=== PATIENT | female | born 1955 | race Caucasian/White ===

== ENCOUNTER → 2016-03-14 | Outpatient (CLI) | payer OTHER ==
[~2016-03-14] MED LIST: /BENA20TA; /CELE20CA; /CELE20CA OR; /CELE20CA PO; /GLYB5TA; /PANT40TA; ACET65TA; ACTO30TA OR; ACTO30TA7 PO; ATEN100T; ATEN50TA2; BACT400T; BACT800T; BACT800T5 PO; BACTROBAN; BENA20TA2; BENA40TA2 PO; BENZAPRIL OR; BENZAPRIL PO; BISA5TA; BUPR15TA OR; CEFT2ADD; CELE100C; CINNAMON PO; CIPR500T19; CIPR500T89 PO; COLA100C2; FLAG500T; FLUO10CA8 PO; GASTROGRAFIN SOLUTION 30ML (Q9963) As Ordered ONE; GLUC1000; GLUC1000 OR; GLUC500T; HEPARIN FLUSH; HUMALIN R; HUMUINJ IJ; HYDR25TA6; HYDR25TA6 OR; HYDR25TAB PO; INSULADS SC; INSULANT; INSULANT SC; JANU50TA4 PO; JANU50TA8 PO; JANUVIA PO; LEVA500T; LIPOZENE PO; MACROBID; METF1000 PO; METF500T4; METR500T10 PO; MILKSUS; NEUR100C PO; OMEP40CA2 PO; PERC5TAB6 PO; PERC5TAB8; PERCOCET OR; ROSI2TA; SALINE FLUSH; SERT100T; SIMV10TA2; SIMV10TA2 OR; SITA50TAB PO; TRAM37.5 PO; TRAM50TA2 PO; TYLENOL #3; ULTR50TA PO; VIBR100C; VICO5TAB; VICODIN PO; XANA0.25; ZOCO10TA; ZOCO10TA PO; ZOLO100T; [UNRECOGNIZED DRUG - OTHER] PO; [UNRECOGNIZED DRUG - REMARK] PO
--- NOTE | 2016-03-15 09:19 | REP ---
Clinical: Right lower quadrant and pelvic pain. Comparison: 10/08/2015. Findings: Liver, spleen, pancreas, gallbladder, bilateral adrenal glands and kidneys are stable and normal for noncontrast evaluation. The enteric system is without obstruction or acute inflammatory process. The patient appears to be status post appendectomy with normal terminal ileum in the right lower quadrant. Pelvis demonstrates normal bladder and evidence for prior hysterectomy. No pelvic fluid or ascites. No significant adenopathy. No free air. Abdominal aorta is without aneurysm. Surrounding musculoskeletal structures are intact. Lung bases are clear. Impression: No acute intra-abdominal or pelvic pathology appreciated. Signed by Marcellus Garcia MD 03/15/2016 09:10 A
== END | disposition home or self-care (01) ==
LOC: M RAD 14:29
PROVIDERS: ATTEND Internal Medicine
DX: R10.31 Right lower quadrant pain (principal)
CPT/HCPCS: 74176; Q9963

== ENCOUNTER → 2016-05-31 | Outpatient (CLI) | payer OTHER ==
[~2016-05-31] VITALS: Ht 167.6 cm; Wt 99.8 kg
[~2016-05-31] MED LIST changes: -GASTROGRAFIN SOLUTION 30ML (Q9963) As Ordered ONE; +JANU100T14 PO; +LIDOCAINE 2% INJ 100 MG/5 ML SDV (FOR ANES.) As Ordered ONE; +NS 1,000 ML IV SCH; +PROPOFOL 200 MG/20 ML VIAL As Ordered ONE
--- NOTE | 2016-05-31 10:36 | ROOR ---
Patient Name: Jackelyn Rboerts Procedure Date: 05/31/2016 10:05 AM Date of : 1955 Age: 60 Room: [facility] Gender: Female Note Status: Finalized Procedure: Colonoscopy Indications: High risk colon cancer surveillance: Personal history of colonic polyps Providers: DO Chavo Wyatt MD: HERIBERTO LOUIS MD Requesting Provider: Medicines: Propofol per Anesthesia Complications: No immediate complications. Procedure: Pre-Anesthesia Assessment: - Prior to the procedure, a History and Physical was performed, and patient medications and allergies were reviewed. The patient is competent. The risks and benefits of the procedure and the sedation options and risks were discussed with the patient. All questions were answered and informed consent was obtained. Patient identification and proposed procedure were verified by the physician, the nurse, the anesthesiologist and the safety technician in the endoscopy suite. Mental Status Examination: alert and oriented. Airway Examination: normal oropharyngeal airway and neck mobility. Respiratory Examination: clear to auscultation. CV Examination: normal. Prophylactic Antibiotics: The patient does not require prophylactic antibiotics. Prior Anticoagulants: The patient has taken no previous anticoagulant or antiplatelet agents. ASA Grade Assessment: II - A patient with mild systemic disease. After reviewing the risks and benefits, the patient was deemed in satisfactory condition to undergo the procedure. The anesthesia plan was to use monitored anesthesia care (MAC). Immediately prior to administration of medications, the patient was re-assessed for adequacy to receive sedatives. The heart rate, respiratory rate, oxygen saturations, blood pressure, adequacy of pulmonary ventilation, and response to care were monitored throughout the procedure. The physical status of the patient was re-assessed after the procedure. The Colonoscope was introduced through the anus and advanced to the cecum, identified by appendiceal orifice and ileocecal valve. The colonoscopy was performed without difficulty. The patient tolerated the procedure well. Findings: The perianal exam findings include non-thrombosed internal hemorrhoids and internal hemorrhoids that prolapse with straining, but spontaneously regress to the resting position (Grade II). Five sessile polyps were found in the rectum and cecum. The polyps were less than 5 mm in size. These polyps were removed with a hot snare. Resection and retrieval were complete. Estimated blood loss was minimal. 3 polyps in cecum, 2 in rectum The exam was otherwise without abnormality on direct and retroflexion views. Impression: - Non-thrombosed internal hemorrhoids and internal hemorrhoids that prolapse with straining, but spontaneously regress to the resting position (Grade II) found on perianal exam. - Five less than 5 mm polyps in the rectum and in the cecum, removed with a hot snare. Resected and retrieved. - The examination was otherwise normal on direct and retroflexion views. Recommendation: - Patient has a contact number available for emergencies. The signs and symptoms of potential delayed complications were discussed with the patient. Return to normal activities tomorrow. Written discharge instructions were provided to the patient. - Repeat colonoscopy in 3 years for surveillance based on pathology results. - Return to my office PRN. Boris Vicente DO 05/31/2016 10:36:17 AM This report has been signed electronically. Number of Addenda: 0 Note Initiated On: 05/31/2016 10:05 AM Estimated Blood Loss: Estimated blood loss was minimal.
[2016-05-31 11:00] VITALS: BP 133/74
== END ==
LOC: M OPP 09:30
PROVIDERS: ATTEND Surgery
DX: Z12.11 Encounter for screening for malignant neoplasm of colon (principal); Z86.010 Personal history of colon polyps; Z80.0 Family history of malignant neoplasm of digestive organs; D12.0 Benign neoplasm of cecum; K62.1 Rectal polyp; K64.1 Second degree hemorrhoids; G89.29 Other chronic pain; R10.31 Right lower quadrant pain; I10 Essential (primary) hypertension; E11.9 Type 2 diabetes mellitus without complications; Z79.899 Other long term (current) drug therapy; Z88.0 Allergy status to penicillin; Z88.6 Allergy status to analgesic agent; Z88.8 Allergy status to other drugs, medicaments and biological substances; Z91.89 Other specified personal risk factors, not elsewhere classified

== ENCOUNTER 2016-06-12 17:23 | Emergency (ER) | payer OTHER ==
[~2016-06-12] VITALS: Ht 167.6 cm; Wt 113.4 kg
[~2016-06-12 17:23] MED LIST changes: -LIDOCAINE 2% INJ 100 MG/5 ML SDV (FOR ANES.) As Ordered ONE; -NS 1,000 ML IV SCH; -PROPOFOL 200 MG/20 ML VIAL As Ordered ONE
[2016-06-12] MEDS ORDERED: fentaNYL 100 MCG/2 ML INJECTION (J3010) IV PRN (19:30)
[2016-06-12 20:15] LABS: VENOUS BASE EXCESS 3.2 (-2.0-2.0); VENOUS O2 SATURATION 96.8 % (60.0-80.0); VENOUS PARTIAL PRESSURE CO2 37.5 mmHg (38.0-50.0); VENOUS PARTIAL PRESSURE O2 91.6 mmHg (30.0-50.0); VENOUS STANDARD HCO3 27.3 MEQ/L
[2016-06-12 20:30] LABS: BASO % 0.5 % (0.0-1.0); EOS # 0.1 K/mm3 (0.0-0.50); EOS % 1.3 % (0.0-3.0); LARGE UNSTAINED CELL # 0.1 K/mm3 (0.0-0.4); LARGE UNSTAINED CELL % 1.3 % (0.0-4.0); LYMPH # 1.8 K/mm3 (1.5-4.5); LYMPH % 21.7 % (24.0-44.0); MEAN CORPUSCULAR HEMOGLOBIN 28.1 pg (27.0-33.0); MEAN CORPUSCULAR HGB CONC 33.8 g/dl (32.0-36.5); MEAN CORPUSCULAR VOLUME 83.2 fl (80.0-96.0); MONO # 0.4 K/mm3 (0.0-0.8); MONO % 4.7 % (0.0-5.0); NEUTROPHILS # 5.9 K/mm3 (1.8-7.7); NEUTROPHILS % 70.5 % (36.0-66.0); PLATELET COUNT, AUTOMATED 188 k/mm3 (150-450); RED CELL DISTRIBUTION WIDTH 14.6 % (11.5-14.5); WHITE BLOOD COUNT 8.3 K/mm3 (4.0-10.0)
[2016-06-12 20:44] LABS: ANION GAP 10 MEQ/L (8-16); BLOOD UREA NITROGEN 10 MG/DL (7-18); CALCIUM LEVEL 8.9 MG/DL (8.8-10.2); CARBON DIOXIDE LEVEL 27 MEQ/L (21-32); CHLORIDE LEVEL 100 MEQ/L (98-107); CREATININE FOR GFR 0.78 MG/DL (0.55-1.02); GLOMERULAR FILTRATION RATE > 60.0 (>45); GLUCOSE, FASTING 134 MG/DL (80-110); POTASSIUM SERUM 3.7 MEQ/L (3.5-5.1); SODIUM LEVEL 137 MEQ/L (136-145)
[2016-06-12] MEDS ORDERED: PERCOCET 5MG/325MG TAB PO ONE (23:30)
[2016-06-13 00:05] VITALS: BP 144/67
--- NOTE | 2016-06-13 02:19 | REP ---
Clinical: Chest pain . Comparison: None . Findings: The mediastinum and cardiac silhouette are stable and within normal limits for portable technique. The lung wylie are clear without acute consolidation, effusion, or pneumothorax. Skeletal structures are intact. Impression: Normal portable chest x-ray Signed by Marcellus Garcia MD 06/13/2016 02:11 A
--- NOTE | 2016-06-13 05:02 | ECGEPIP ---
Stationary ECG Study 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
--- NOTE | 2016-06-13 05:11 | ECGEPIP ---
Stationary ECG Study [facility] - ED Test Date: 2016-06-12 Pat Name: YUMI DOS SANTOS Department: Room: - Gender: F Shot Dropper: RAKESH : 1955 Requested By: BROOKLYN Caceres Order Number: [id number] Reading MD: Agustin Laguna Measurements Intervals [place] Rate: 81 P: 40 DC: 158 QRS: 1 QRSD: 89 T: 102 QT: 382 QTc: 445 Interpretive Statements SINUS RHYTHM NSTTW ABNORMALITIES SIMILAR TO PRIOR ON SAME DATE Electronically Signed On 06-13-2016 5:11:04 EDT by Agustin Laguna
== END 2016-06-13 00:10 | disposition home or self-care (01) ==
LOC: EDBD 17:23 → M ED 18:44
DX: R07.9 Chest pain, unspecified (principal); I50.9 Heart failure, unspecified; Z88.5 Allergy status to narcotic agent; Z88.6 Allergy status to analgesic agent; Z88.0 Allergy status to penicillin; Z79.4 Long term (current) use of insulin; Z79.899 Other long term (current) drug therapy
CPT/HCPCS: 36415; 36600; 71010; 80048; 82550; 82553; 82803; 83880; 85025; 93005; 93041; 96374; 99284; J3010

== ENCOUNTER → 2016-12-29 | Outpatient (CLI) | payer OTHER ==
[~2016-12-29] MED LIST changes: +ACTO30TA15 PO; -ACTO30TA7 PO; -BENA40TA2 PO; +BENA40TA7 PO; +CIPR-249 PO; -CIPR500T89 PO; +METR1TAB66 PO; -METR500T10 PO; +PERC5TAB12 PO; -PERC5TAB6 PO
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
== END | disposition home or self-care (01) ==
LOC: M PAIN 15:45
PROVIDERS: ATTEND Anesthesiology
DX: G89.29 Other chronic pain (principal); R10.30 Lower abdominal pain, unspecified; F33.9 Major depressive disorder, recurrent, unspecified; D86.9 Sarcoidosis, unspecified; E11.9 Type 2 diabetes mellitus without complications; I10 Essential (primary) hypertension; I25.9 Chronic ischemic heart disease, unspecified; M19.90 Unspecified osteoarthritis, unspecified site; E66.9 Obesity, unspecified; Z79.899 Other long term (current) drug therapy; Z79.4 Long term (current) use of insulin; Z88.0 Allergy status to penicillin; Z88.1 Allergy status to other antibiotic agents; Z88.2 Allergy status to sulfonamides; Z88.5 Allergy status to narcotic agent; Z88.8 Allergy status to other drugs, medicaments and biological substances

== ENCOUNTER → 2017-03-07 | Outpatient (CLI) | payer OTHER | LOC: M PAIN 15:00 | DX: G89.29 Other chronic pain (principal); R10.30 Lower abdominal pain, unspecified; E11.9 Type 2 diabetes mellitus without complications; I11.9 Hypertensive heart disease without heart failure; E66.9 Obesity, unspecified; Z68.35 Body mass index [BMI] 35.0-35.9, adult; F32.9 Major depressive disorder, single episode, unspecified; D86.9 Sarcoidosis, unspecified; M19.90 Unspecified osteoarthritis, unspecified site; Z88.0 Allergy status to penicillin; Z88.1 Allergy status to other antibiotic agents; Z88.6 Allergy status to analgesic agent; Z88.5 Allergy status to narcotic agent; Z88.8 Allergy status to other drugs, medicaments and biological substances; Z79.4 Long term (current) use of insulin; Z79.899 Other long term (current) drug therapy | CPT/HCPCS: G0463 ==

== ENCOUNTER → 2017-05-18 | Outpatient (CLI) | payer OTHER | LOC: M PAIN 11:30 | DX: R10.30 Lower abdominal pain, unspecified (principal); G89.29 Other chronic pain; E66.01 Morbid (severe) obesity due to excess calories; Z68.35 Body mass index [BMI] 35.0-35.9, adult; F32.9 Major depressive disorder, single episode, unspecified; E11.9 Type 2 diabetes mellitus without complications; I10 Essential (primary) hypertension; Z79.4 Long term (current) use of insulin; Z79.899 Other long term (current) drug therapy; Z88.0 Allergy status to penicillin; Z88.1 Allergy status to other antibiotic agents; Z88.5 Allergy status to narcotic agent; Z88.6 Allergy status to analgesic agent; Z88.8 Allergy status to other drugs, medicaments and biological substances; Z91.040 Latex allergy status | CPT/HCPCS: G0463 ==

== ENCOUNTER → 2017-09-21 | Outpatient (CLI) | payer OTHER | LOC: M PAIN 10:00 | DX: R10.30 Lower abdominal pain, unspecified (principal); G89.29 Other chronic pain; F32.9 Major depressive disorder, single episode, unspecified; E11.9 Type 2 diabetes mellitus without complications; I10 Essential (primary) hypertension; M19.90 Unspecified osteoarthritis, unspecified site; E66.01 Morbid (severe) obesity due to excess calories; Z79.4 Long term (current) use of insulin; Z79.899 Other long term (current) drug therapy; Z88.0 Allergy status to penicillin; Z88.1 Allergy status to other antibiotic agents; Z88.5 Allergy status to narcotic agent; Z88.6 Allergy status to analgesic agent; Z88.8 Allergy status to other drugs, medicaments and biological substances; Z91.040 Latex allergy status; Z68.35 Body mass index [BMI] 35.0-35.9, adult; Z86.79 Personal history of other diseases of the circulatory system | CPT/HCPCS: G0463 ==

== ENCOUNTER → 2017-10-12 | Outpatient (CLI) | payer OTHER | LOC: M PAIN 12:45 | DX: R10.30 Lower abdominal pain, unspecified (principal); F32.9 Major depressive disorder, single episode, unspecified; E11.9 Type 2 diabetes mellitus without complications; I10 Essential (primary) hypertension; Z79.4 Long term (current) use of insulin; Z79.891 Long term (current) use of opiate analgesic; Z79.899 Other long term (current) drug therapy; Z88.8 Allergy status to other drugs, medicaments and biological substances | CPT/HCPCS: G0463 ==

== ENCOUNTER → 2017-11-20 | Outpatient (CLI) | payer OTHER | LOC: M PAIN 15:15 | DX: Z53.29 Procedure and treatment not carried out because of patient's decision for other reasons (principal) ==

== ENCOUNTER → 2017-11-21 | Outpatient (CLI) | payer OTHER | LOC: M PAIN 15:15 | DX: R10.30 Lower abdominal pain, unspecified (principal); M79.2 Neuralgia and neuritis, unspecified; F32.9 Major depressive disorder, single episode, unspecified; E11.9 Type 2 diabetes mellitus without complications; I10 Essential (primary) hypertension; Z79.891 Long term (current) use of opiate analgesic; Z79.4 Long term (current) use of insulin; Z79.899 Other long term (current) drug therapy; Z88.0 Allergy status to penicillin; Z88.5 Allergy status to narcotic agent; Z88.8 Allergy status to other drugs, medicaments and biological substances | CPT/HCPCS: G0463 ==

== ENCOUNTER 2017-12-03 07:09 | Day surgery (SDC) | payer OTHER ==
[2017-12-03] MEDS: BUPIVACAINE HCL 0.25% 30 ML VIAL As Ordered (07:28)
[2017-12-03] MEDS: ISOVUE-300 61% 50ML VIAL (Q9967) As Ordered (07:28)
[2017-12-03 08:09] LABS: BEDSIDE GLUCOSE 51 MG/DL (80-115)
[2017-12-03 08:12] LABS: BEDSIDE GLUCOSE 196 MG/DL (80-115)
[2017-12-03] MEDS: MIDAZOLAM INJ 2 MG/2 ML VIAL (J2250) IV (08:30)
[2017-12-03] MEDS: LR 1,000 ML IV ×2 (08:30→11:34)
[2017-12-03] MEDS ORDERED: PROPOFOL 200 MG/20 ML VIAL As Ordered (09:22)
[2017-12-03] MEDS ORDERED: MIDAZOLAM INJ 2 MG/2 ML VIAL (J2250) As Ordered (09:22)
[2017-12-03] MEDS: CLINDAMYCIN 600 MG in APPROPRIATE DILUENT 1 EA IV ×3 (09:30→23:44)
[2017-12-03] MEDS ORDERED: fentaNYL 100 MCG/2 ML INJECTION (J3010) As Ordered (09:46)
[2017-12-03] MEDS: LIDOCAINE W/EPINEPHRINE 1% 20ML VIAL As Ordered (09:55)
[2017-12-03] MEDS ORDERED: fentaNYL 100 MCG/2 ML INJECTION (J3010) IV (12:00)
[2017-12-03] MEDS: HumaLOG INSULIN (NovoLOG) PER UNIT SC ×3 (12:00→20:48)
[2017-12-03] MEDS ORDERED: METOCLOPRAMIDE INJ 10MG/2ML VIAL (J2765) IV (12:00)
[2017-12-03] MEDS: ONDANSETRON 4MG/2ML VIAL (J2405) IV (12:04)
[2017-12-03] MEDS: PERCOCET 5MG/325MG TAB PO (12:06)
[2017-12-03] MEDS ORDERED: GLUCAGON FOR INJ 1 MG VIAL (J1610) SC (13:00)
[2017-12-03] MEDS ORDERED: DEXTROSE 50% 50 ML SYRINGE IV (13:00)
[2017-12-03] MEDS ORDERED: GLUCOSE 4 GM CHEW TABLET PO (13:00)
[2017-12-03 13:18] LABS: HEMATOCRIT 39.6 % (36.0-47.0); HEMOGLOBIN 12.9 g/dl (12.0-15.5); MEAN CORPUSCULAR HEMOGLOBIN 27.7 pg (27.0-33.0); MEAN CORPUSCULAR HGB CONC 32.6 g/dl (32.0-36.5); MEAN CORPUSCULAR VOLUME 85.2 fl (80.0-96.0); PLATELET COUNT, AUTOMATED 187 10^3/uL (150-450); RED BLOOD COUNT 4.65 10^6/uL (4.00-5.40); RED CELL DISTRIBUTION WIDTH 14.6 % (11.5-14.5); WHITE BLOOD COUNT 9.3 10^3/uL (4.0-10.0)
[2017-12-03 13:51] LABS: ANION GAP 9 MEQ/L (8-16); BLOOD UREA NITROGEN 12 MG/DL (7-18); CALCIUM LEVEL 8.7 MG/DL (8.8-10.2); CARBON DIOXIDE LEVEL 26 MEQ/L (21-32); CHLORIDE LEVEL 105 MEQ/L (98-107); CREATININE FOR GFR 0.69 MG/DL (0.55-1.30); GLOMERULAR FILTRATION RATE > 60.0 (>45); GLUCOSE, FASTING 143 MG/DL (70-100); MAGNESIUM LEVEL 1.4 MG/DL (1.8-2.4); POTASSIUM SERUM 4.3 MEQ/L (3.5-5.1); SODIUM LEVEL 140 MEQ/L (136-145)
[2017-12-03] MEDS: FLUoxetine 10 MG CAP PO (13:59)
[2017-12-03] MEDS: oxyCODONE 5MG TAB PO ×2 (14:33→20:47)
[2017-12-03 16:49] LABS: BEDSIDE GLUCOSE 154 MG/DL (80-115)
[2017-12-03 20:14] LABS: BEDSIDE GLUCOSE 116 MG/DL (80-115)
[2017-12-03] MEDS: SIMVASTATIN 10 MG TAB PO (20:46)
[2017-12-03] MEDS: LEVEMIR (INSULIN DETEMIR) 1 UNITS/0.01ML SC (20:48)
[2017-12-04] MEDS: oxyCODONE 5MG TAB PO ×2 (04:37→10:43)
[2017-12-04] MEDS: CLINDAMYCIN 600 MG in APPROPRIATE DILUENT 1 EA IV (05:56)
[2017-12-04 06:19] LABS: HEMATOCRIT 37.3 % (36.0-47.0); HEMOGLOBIN 11.9 g/dl (12.0-15.5); MEAN CORPUSCULAR HEMOGLOBIN 27.4 pg (27.0-33.0); MEAN CORPUSCULAR HGB CONC 31.9 g/dl (32.0-36.5); MEAN CORPUSCULAR VOLUME 85.7 fl (80.0-96.0); PLATELET COUNT, AUTOMATED 168 10^3/uL (150-450); RED BLOOD COUNT 4.35 10^6/uL (4.00-5.40); RED CELL DISTRIBUTION WIDTH 14.6 % (11.5-14.5); WHITE BLOOD COUNT 7.9 10^3/uL (4.0-10.0)
[2017-12-04 06:44] LABS: ANION GAP 5 MEQ/L (8-16); BLOOD UREA NITROGEN 11 MG/DL (7-18); CALCIUM LEVEL 7.7 MG/DL (8.8-10.2); CARBON DIOXIDE LEVEL 29 MEQ/L (21-32); CHLORIDE LEVEL 104 MEQ/L (98-107); CREATININE FOR GFR 0.62 MG/DL (0.55-1.30); GLOMERULAR FILTRATION RATE > 60.0 (>45); GLUCOSE, FASTING 144 MG/DL (70-100); MAGNESIUM LEVEL 1.3 MG/DL (1.8-2.4); POTASSIUM SERUM 3.6 MEQ/L (3.5-5.1); SODIUM LEVEL 138 MEQ/L (136-145)
[2017-12-04] MEDS: FLUoxetine 10 MG CAP PO (07:50)
[2017-12-04] MEDS: MAG SULF 1GM/100ML (MAG RUN) 1 GM in APPROPRIATE DILUENT 1 EA IV ×2 (07:51→08:05)
[2017-12-04] MEDS: HumaLOG INSULIN (NovoLOG) PER UNIT SC (07:51)
[2017-12-04] MEDS: LEVEMIR (INSULIN DETEMIR) 1 UNITS/0.01ML SC (07:51)
== END 2017-12-04 11:13 | disposition home or self-care (01) ==
LOC: M SDC 07:09 → M MSPAV 12:29
DX: R10.9 Unspecified abdominal pain (principal); G58.8 Other specified mononeuropathies; G89.29 Other chronic pain; I10 Essential (primary) hypertension; E10.9 Type 1 diabetes mellitus without complications; F32.9 Major depressive disorder, single episode, unspecified; R94.31 Abnormal electrocardiogram [ECG] [EKG]; E78.00 Pure hypercholesterolemia, unspecified; M12.9 Arthropathy, unspecified; M54.9 Dorsalgia, unspecified; R51 Headache; G35 Multiple sclerosis; R06.83 Snoring; Z88.0 Allergy status to penicillin; Z88.1 Allergy status to other antibiotic agents; Z88.5 Allergy status to narcotic agent; Z88.6 Allergy status to analgesic agent; Z88.8 Allergy status to other drugs, medicaments and biological substances; Z79.899 Other long term (current) drug therapy; Z90.710 Acquired absence of both cervix and uterus
CPT/HCPCS: 63650

== ENCOUNTER → 2017-12-07 | Outpatient (CLI) | payer OTHER | LOC: M PAIN 10:00 | DX: R10.84 Generalized abdominal pain (principal); G89.29 Other chronic pain; M79.2 Neuralgia and neuritis, unspecified; F32.9 Major depressive disorder, single episode, unspecified; E11.9 Type 2 diabetes mellitus without complications; I10 Essential (primary) hypertension; M19.90 Unspecified osteoarthritis, unspecified site; Z79.4 Long term (current) use of insulin; Z79.899 Other long term (current) drug therapy; Z88.0 Allergy status to penicillin; Z88.1 Allergy status to other antibiotic agents; Z88.5 Allergy status to narcotic agent; Z88.6 Allergy status to analgesic agent; Z88.8 Allergy status to other drugs, medicaments and biological substances; Z91.040 Latex allergy status; Z86.79 Personal history of other diseases of the circulatory system | CPT/HCPCS: G0463 ==

== ENCOUNTER → 2018-01-03 | Outpatient (CLI) | payer OTHER | LOC: M PAIN 14:45 | DX: M79.2 Neuralgia and neuritis, unspecified (principal); R10.30 Lower abdominal pain, unspecified; G89.29 Other chronic pain; F32.9 Major depressive disorder, single episode, unspecified; E11.9 Type 2 diabetes mellitus without complications; I10 Essential (primary) hypertension; M19.90 Unspecified osteoarthritis, unspecified site; E66.01 Morbid (severe) obesity due to excess calories; Z68.35 Body mass index [BMI] 35.0-35.9, adult; Z79.4 Long term (current) use of insulin; Z79.899 Other long term (current) drug therapy; Z88.0 Allergy status to penicillin; Z88.1 Allergy status to other antibiotic agents; Z88.5 Allergy status to narcotic agent; Z88.6 Allergy status to analgesic agent; Z88.8 Allergy status to other drugs, medicaments and biological substances; Z91.040 Latex allergy status; Z86.79 Personal history of other diseases of the circulatory system | CPT/HCPCS: G0463 ==

== ENCOUNTER 2018-04-04 11:31 | Emergency (ER) | payer OTHER ==
[~2018-04-04] VITALS: Ht 167.6 cm; Wt 106.8 kg
[~2018-04-04 11:31] MED LIST changes: +METR-201 PO; -METR1TAB66 PO
[2018-04-04] MEDS ORDERED: JANU50TA25 PO (12:36)
[2018-04-04] MEDS ORDERED: OXYC1TAB23 PO (12:36)
[2018-04-04] MEDS ORDERED: CINN500T PO (12:36)
--- NOTE | 2018-04-04 12:36 | REP ---
CT Head without contrast HISTORY: Trauma COMPARISON: 03/11/2009 Areas of decreased attenuation are present in the periventricular white matter. This represents small-vessel ischemic disease. There is no intraparenchymal hemorrhage, acute infarct, mass or midline shift. The ventricular system and cortical sulci are dilated consistent with mild volume loss. There is no extra cerebral collection. There is no fracture. Mucosal thickening is present in the maxillary sinuses. A subgaleal hematoma is present overlying the parietal bones at the vertex. IMPRESSION: 1. Small vessel ischemic disease. 2. Mild volume loss. Electronically Signed by Fortunato Joseph MD 04/04/2018 12:28 P
--- NOTE | 2018-04-04 12:43 | REP ---
CT cervical spine without contrast HISTORY: Trauma COMPARISON: None There is no acute fracture or subluxation. Disc bulges are present at the C2-3 and C3-4 levels. A small central disc protrusion is present at the C4-5 level. A disc bulge with associated osteophyte formation is present at the C5-6 level. The patient is status post C6-7 anterior spinal fusion. A fixation plate and bone graft material are present. Small posterior osteophytes are present. A small calcification is present posterior to the C7-T1 intervertebral disc. There is minimal narrowing of the spinal canal. Uncinate process hypertrophy is present at the C5-6 and C6-7 levels. There is minimal narrowing of the neural foramina. The C5-6 intervertebral disc is decreased in height consistent with disc degeneration. There is no subluxation. IMPRESSION: 1. There is no acute fracture or subluxation. 2. The patient is status post C6-7 anterior spinal fusion. There is anatomic alignment. 3. There is cervical spondylosis at the C2-3 through C7-T1 levels. Electronically Signed by Fortunato Joseph MD 04/04/2018 12:35 P
[2018-04-04] MEDS ORDERED: NS 1,000 ML IV SCH (12:52)
[2018-04-04] MEDS ORDERED: ACETAMINOPHEN TAB 650MG DOSE (2X325MG) PO ONE (13:00)
[2018-04-04 13:35] LABS: BASO % 0.3 % (0.0-1.0); EOS # 0.1 10^3/uL (0.0-0.50); EOS % 0.5 % (0.0-3.0); HEMATOCRIT 42.4 % (36.0-47.0); HEMOGLOBIN 14.2 g/dl (12.0-15.5); LYMPH # 1.5 10^3/uL (1.5-4.5); LYMPH % 13.2 % (24.0-44.0); MEAN CORPUSCULAR HEMOGLOBIN 27.6 pg (27.0-33.0); MEAN CORPUSCULAR HGB CONC 33.5 g/dl (32.0-36.5); MEAN CORPUSCULAR VOLUME 82.5 fl (80.0-96.0); MONO # 0.6 10^3/uL (0.0-0.8); MONO % 5.1 % (0.0-5.0); NEUTROPHILS # 9.2 10^3/uL (1.8-7.7); NEUTROPHILS % 80.3 % (36.0-66.0); PLATELET COUNT, AUTOMATED 184 10^3/uL (150-450); RED BLOOD COUNT 5.14 10^6/uL (4.00-5.40); WHITE BLOOD COUNT 11.4 10^3/uL (4.0-10.0)
[2018-04-04 14:14] LABS: ALT/SGPT 24 U/L (12-78); BILIRUBIN,DIRECT < 0.1 MG/DL (0.0-0.2); BILIRUBIN,TOTAL 0.7 MG/DL (0.2-1.0); BLOOD UREA NITROGEN 7 MG/DL (7-18); CALCIUM LEVEL 8.6 MG/DL (8.8-10.2); CARBON DIOXIDE LEVEL 24 MEQ/L (21-32); CHLORIDE LEVEL 102 MEQ/L (98-107); CREATININE FOR GFR 0.71 MG/DL (0.55-1.30); GLOMERULAR FILTRATION RATE > 60.0 (>45); GLUCOSE, FASTING 305 MG/DL (70-100); LIPASE 183 U/L (73-393); POTASSIUM SERUM 4.9 MEQ/L (3.5-5.1); SODIUM LEVEL 136 MEQ/L (136-145); TOTAL PROTEIN 7.9 GM/DL (6.4-8.2)
[2018-04-04] MEDS ORDERED: ISOVUE-370 76% 100ML VIAL (Q9967) As Ordered ONE (14:16)
--- NOTE | 2018-04-04 14:41 | REP ---
Pelvis/right hip: Three views. History: Trauma. Findings: The bony pelvic ring is intact. There is diffuse osteopenia. Urine filled bladder is seen occupying most of the true pelvis. There is a benign dystrophic area of soft tissue ossification in the medial thigh on the left noted incidentally. There is greater trochanteric tendon insertion site spurring. Impression: No hip or pelvic fracture seen. Electronically Signed by Alverto Saleem MD 04/04/2018 10:25 P
--- NOTE | 2018-04-04 15:16 | REP ---
CT abdomen and pelvis with IV but without oral contrast: History: Trauma. Generalized pain. Comparison CT study August 03, 2017. CT contrast dose: 100 ml of intravenous Isovue 370. CT findings: Digital preliminary fountain waitress/waiter radiograph shows an unremarkable gas pattern. There is minimal linear fibrosis in the left lower lobe. Lung bases are otherwise clear on axial CT images. There is minimal diffuse fatty infiltration of the liver. No focal liver lesion is seen. Spleen is unremarkable. There is no adrenal lesion. The kidneys enhance symmetrically and appear morphologically intact. No abnormalities noted in the gallbladder or pancreas. No retroperitoneal mass or adenopathy is seen. There are anastomotic sutures in the gastrointestinal tract in the right mid abdomen. This is unchanged. This appears to be in the small intestine. A ventral hernia repair is seen in the lower anterior abdominal wall. The appearance suggests multiple loops of small intestine adherent to the anterior abdominal wall in the area of the hernia repair. No abdominal wall defect is seen. The anterior abdominal wall is unchanged. Urinary bladder is unremarkable. There are scattered normal-sized small bowel mesenteric lymph nodes. No adenopathy is seen. No bony destructive lesion is appreciated. Impression: Status post ventral hernia repair with the appearance suggesting some adherent small bowel loops unchanged. Small bowel anastomoses seen unchanged. No acute abdominal or pelvic abnormality. Electronically Signed by Alverto Saleem MD 04/04/2018 10:27 P
[2018-04-04 15:19] VITALS: BP 162/84
== END 2018-04-04 15:21 | disposition home or self-care (01) ==
LOC: M ED 11:31 → EDBD 11:31 → M ED 15:21
DX: S09.90XA Unspecified injury of head, initial encounter (principal); W00.9XXA Unspecified fall due to ice and snow, initial encounter; Y92.410 Unspecified street and highway as the place of occurrence of the external cause; Y93.9 Activity, unspecified; Y99.9 Unspecified external cause status; E11.9 Type 2 diabetes mellitus without complications; I10 Essential (primary) hypertension; F32.9 Major depressive disorder, single episode, unspecified; E66.9 Obesity, unspecified; G89.29 Other chronic pain; M43.22 Fusion of spine, cervical region; M47.812 Spondylosis without myelopathy or radiculopathy, cervical region; M47.813 Spondylosis without myelopathy or radiculopathy, cervicothoracic region; Z79.4 Long term (current) use of insulin; Z79.899 Other long term (current) drug therapy; Z88.8 Allergy status to other drugs, medicaments and biological substances; Z88.5 Allergy status to narcotic agent; Z88.0 Allergy status to penicillin; Z91.89 Other specified personal risk factors, not elsewhere classified
CPT/HCPCS: 70450; 72125; 73502; 74177; 80048; 80076; 83690; 85025; 99284; Q9967

== ENCOUNTER → 2018-05-14 | Outpatient (CLI) | payer OTHER ==
[~2018-05-14] MED LIST changes: +CINN500T PO; +JANU50TA25 PO; +OXYC1TAB23 PO
[2018-05-14 14:54] LABS: BLOOD UREA NITROGEN 12 MG/DL (7-18); GLOMERULAR FILTRATION RATE > 60.0 (>45)
== END ==
LOC: M LAB 13:41
PROVIDERS: ATTEND Internal Medicine
DX: Z13.9 Encounter for screening, unspecified (principal)

== ENCOUNTER → 2018-05-16 | Outpatient (CLI) | payer OTHER ==
[~2018-05-16] MED LIST changes: +PROHANCE 279.3MG/ML 15ML VIAL (A9576) As Ordered ONE; +PROHANCE 279.3MG/ML 5ML VIAL (A9576) As Ordered ONE
--- NOTE | 2018-05-16 16:59 | REP ---
MRA BRAIN WITHOUT CONTRAST: HISTORY: Headache. COMPARISON: 03/11/2009. 3D [id number] MR angiography was performed at the level of the [place]. There is no aneurysm, arteriovenous malformation or atherosclerotic lesion. Major intracranial vessels are patent. The left vertebral artery is dominant. The right vertebral artery terminates in the right posterior inferior cerebellar artery. IMPRESSION:Normal MRA brain. Electronically Signed by Fortunato Joseph MD 05/16/2018 05:10 P
--- NOTE | 2018-05-16 17:15 | REP ---
MR BRAIN WITH CONTRAST: HISTORY: Ventriculomegaly. CONTRAST: ProHance 20 mL COMPARISON: 04/22/2018 There are no enhancing lesions. There is no abnormal enhancement. IMPRESSION: There are no enhancing lesions. Electronically Signed by Fortunato Joseph MD 05/16/2018 05:18 P
== END ==
LOC: M RAD 15:33
PROVIDERS: ATTEND Internal Medicine
DX: G44.89 Other headache syndrome (principal)
CPT/HCPCS: 70544; 70552; A9576

== ENCOUNTER → 2018-05-27 | Outpatient (CLI) | payer OTHER ==
[~2018-05-27] MED LIST changes: -PROHANCE 279.3MG/ML 15ML VIAL (A9576) As Ordered ONE; -PROHANCE 279.3MG/ML 5ML VIAL (A9576) As Ordered ONE
--- NOTE | 2018-05-29 00:41 | ECWPNPC ---
PATIENT NAME: YUMI DOS SANTOS : 1955 GENDER: FEMALE VISIT DATE: 05/27/2018 DISCHARGE DATE: 05/27/18 1411 VISIT LOCKED DATE TIME: PHYSICIAN: VIVIANA DHALIWAL RESOURCE: VIVIANA DHALIWAL REASON FOR APPOINTMENT 1. MED MGMT HISTORY OF PRESENT ILLNESS HISTORY OF PRESENT ILLNESS: PAIN THE PATIENT DESCRIBES THE PAIN... FALL RISK SCREENING: SCREENING :NO FALLS REPORTED IN THE LAST YEAR CURRENT MEDICATIONS TAKING CYMBALTA 60 MG CAPSULE DELAYED RELEASE PARTICLES 1 CAPSULE WITH FOOD ORALLY FOR PAIN BID MDD2 TAKING MAY USE CINAMON/OTC 1000 MG. 2 CAPLETS ORALLY DAILY TAKING LANTUS 100 UNIT/ML SOLUTION SUBCUTANEOUS 22UNITS IN AM, 40 UNTIS AT HS TAKING ACTOS 30 MG TABLET 1 TABLET ORALLY ONCE A DAY TAKING BENAZEPRIL HCL 40 MG TABLET 1 TABLET ORALLY DAILY TAKING LIPITOR 10 MG TABLET 1 TABLET ORALLY ONCE A DAY TAKING JANUMET XR 50-1000 MG TABLET EXTENDED RELEASE 24 HOUR 1 TABLET WITH EVENING MEAL ORALLY BID TAKING HYDROCHLOROTHIAZIDE 25 MG TABLET 1 TABLET ORALLY ONCE A DAY TAKING LYRICA 50 MG CAPSULE 1 CAPSULE ORALLY FOR PAIN THREE TIMES A DAY MDD3 TAKING PERCOCET 5-325 MG TABLET 1 TABLET NEEDED ORALLY Q8H PRN MDD3 NOT-TAKING CLINDAMYCIN HCL 150 MG CAPSULE 1 CAPSULE ORALLY FOUR TIMES DAILY NOT-TAKING CLINDAMYCIN HCL 150 MG CAPSULE 1 CAPSULE ORALLY TID NOT-TAKING TRAMADOL HCL 50 MG TABLET 1 TAB ORALLY EVERY 6 HOURS NEEDED/MMD#4 MEDICATION LIST REVIEWED AND RECONCILED WITH THE PATIENT PAST MEDICAL HISTORY OBESITY DEPRESSION SARCOIDOSIS DIABETES MALLITUS HYPERTENSION HEART DISEASE OSTEOARTHRITIS ALLERGIES TERRAMYCIN: HIVES/WATER BLISTERS - ALLERGY PENICILLIN (FOR ALLERGIES USE ONLY): HIVES/WATER BLISTERS - ALLERGY ASPIRIN: RASH/WATER BLISTERS - ALLERGY TEGRETOL: HIVES/WATER BLISTERS - ALLERGY LASIX: HIVES/WATER BLISTERS - ALLERGY BENADRYL: HIVES/WATER BLISTERS - ALLERGY MORPHINE SULFATE: HIVES/WATER BLISTERS - ALLERGY SURGICAL HISTORY ABDOMINAL/ MULTIPLE HERNIA REPAIRS WITH MESH RESULTING IN INFECTION LAST SURGERY 2012 CYST REMOVAL/ LEFT BREAST APPENDECTOMY HYSTERECTOMY ANKLE SURGERY/BOTH ANKLES CERVICAL FUSION 1986 BENIGN LUMPS REMOVED LEFT ARM 2016 SPINAL CORD STIMULATOR TRIAL 11/2017 FAMILY HISTORY FATHER: 68 YRS, DIAGNOSED WITH HEART DISEASE MOTHER: 68 YRS, HEART DISEASE SOCIAL HISTORY GENERAL: TOBACCO USE ARE YOU A: NONSMOKER , ARE YOU A: NONSMOKER. LATEX QUESTIONNAIRE LATEX ALLERGY : HAVE YOU EVER DEVELOPED ANY TYPE OF REACTION AFTER HANDLING LATEX PRODUCTS SUCH RUBBER GLOVES, CONDOMS, DIAPHRAGMS, BALLOONS, SOCKS, OR UNDERWEAR?NO LATEX ALLERGY : HAVE YOU EVER DEVELOPED ANY TYPE OF REACTION DURING OR AFTER DENTAL APPOINTMENT, VAGINAL/RECTAL EXAMINATION, SURGICAL PROCEDURE, OR ANY OTHER EXPOSURE?NO LATEX RISK : HAVE YOU EVER HAD ANY DIFFICULTY BREATHING OR HIVES AFTER EATING OR HANDLING ANY FRUITS, OR VEGETABLES; SUCH KIWI, BANANAS, STONE FRUITS, OR CHESTNUTSNO LATEX RISK : DO YOU HAVE A PREVIOUS PERSONAL HISTORY OF MORE THAN NINE SURGERIES, SPINA BIFIDA, OR REPEATED CATHERTIZATIONS? YES - PLEASE INDICATE : > 9 SURGERIES LATEX RISK : ARE YOU FREQUENTLY EXPOSED TO LATEX PRODUCTS IN YOUR OCCUPATION?NO DATE ASKED : 05/27/2018 ALCOHOL SCREENING DID YOU HAVE A DRINK CONTAINING ALCOHOL IN THE PAST YEAR?NO POINTS0 INTERPRETATIONNEGATIVE RECREATIONAL DRUG USE DRUG USE? NO , PATIENT DENIES ABUSE OR MISSUSED OF ANY MEDICATION . , PATIENT DENIES USE OF ANY ILLEGAL SUBSTANCE INCLUDING MARIJUANA OR COCAINE . . CAFFEINE CAFFEINE USE? NO . MUSLIM NONE. LANGUAGE LANGUAGES SPOKEN:ARMENIAN LEARNING BARRIERS / SPECIAL NEEDS ABILITY TO UNDERSTAND VERBAL INSTRUCTIONS AVERAGE, ABILITY TO UNDERSTAND WRITTEN INSTRUCTIONS AVERAGE, KNOWLEDGE OF EDUCATIONAL NEEDS/TREATMENT PLAN AVERAGE, YAZIDI? NO, LEARNING PREFERENCE NO PREFERENCE, ORIENTED TO PLAN OF CARE: PATIENT, TEACHING MATERIALS PRINTED HANDOUT, RESPONSE TO EDUCATION EXPLAINES ACCURATELY/VERBALIZES UNDERSTANDING, PAIN MANAGEMENT PATIENT, TEACHING MATERIALS PRINTED HANDOUT, RESPONSE TO EDUCATION EXPLAINS ACCURATELY/VERBALIZES UNDERSTANDING. DOMESTIC VIOLENCE DO YOU FEEL SAFE IN YOUR ENVIRONMENT?YES PAIN CLINIC PFS, CLERGY, PUBLIC HEALTH REFERRALS PFS REFERRAL NEEDED?NO CLERGY REFERRAL NEEDED?NO PUBLIC HEALTH REFERRAL NEEDED?NO WAS THE PROVIDER NOTIFIED OF ANY PERTINENT INFO?NO HAS THE PATIENT BEEN EDUCATED REGARDING HIS/HER PLAN OF CARE?YES HAS THE PATIENT BEEN EDUCATED REGARDING PAIN, THE RISK FOR PAIN, THE IMPORTANCE OF EFFECTIVE PAIN MANAGEMENT, AND THE PAIN ASSESSMENT PROCESS?YES ADVANCE DIRECTIVE ADVANCE DIRECTIVE DISCUSSED WITH PATIENT:YES HCP - JESSICA DOS SANTOS () & NINA HUFF REVIEWED WITH PT 11/21/17 3068 BVREVIEWED WITH PATIENT 05/27/18 5902 JS. HOSPITALIZATION/MAJOR DIAGNOSTIC PROCEDURE SURGERY RELATED REVIEW OF SYSTEMS REVIEWED BY: PROVIDER: . CONSTITUTIONAL: ANY CHANGE IN YOUR MEDICAL CONDITION? NO . CHILLS NO . FEVER NO . INFECTION: DO YOU HAVE NEW INFECTIONS? NO . DO YOU HAVE HISTORY OF MRSA? NO . MUSCULOSKELETAL: ANY NEW PATTERNS OF PAIN OR NUMBNESS? NO . GASTROENTEROLOGY: ANY NEW CHANGE IN BOWEL CONTROL? NO . GENITOURINARY: ANY NEW CHANGE IN BLADDER CONTROL? NO . IS THERE A CHANCE YOU COULD BE ? NO . HEMATOLOGY/LYMPH: DO YOU TAKE ANY BLOOD THINNERS? (FOR EXAMPLE- COUMADIN, PLAVIX, AGGRENOX, PLATEL, PRADAXA, OR XARELTO) NO . WHEN WAS YOUR LAST DOSE? DATE: TIME: . NEUROLOGY: HAVE YOU FALLEN IN THE PAST 12 MONTHS? YES, SLIPPED ON ICE APRIL 04, HIT HEAD, SLICED OPEN HER HEAD. WENT TO ED VIA AMBULANCE, MULTIPLE TESTS AND IMAGING PERFORMED. STATES HAVING MIGRAINES SINCE FALL, STATES THEY GET SO BAD THAT THEY CAUSE NAUSEA AND VOMITING. PATIENT TO SEE NEUROLOGIST THIS MONTH . ANY NEW EXTREMITY NUMBNESS OR WEAKNESS? YES, STATES WORSENING WEAKNESS TO BILATERAL LEGS AND HANDS. ALSO STATES SOME NUMBNESS TO THESE AREAS . CARDIOLOGY: DO YOU HAVE A PACEMAKER OR DEFIBRILLATOR? NO . RESPIRATORY: HAVE YOU BEEN SICK IN THE PAST WEEK? NO . FEVER NO . FLU LIKE SYMPTOMS? NO . COUGH NO . INTEGUMENTARY: DO YOU HAVE ANY RASHES OR OPEN SORES? NO . ALLERGIC/IMMUNO: ARE YOU ALLERGIC TO IV DYE? NO . ANY NEW ALLERGIES? NO . PSYCHIATRIC: DO YOU HAVE THOUGHTS OF HURTING YOURSELF OR SOMEONE ELSE? NO . ARE YOU ABUSED, NEGLECTED, OR IN AN UNSAFE ENVIRONMENT? NO . ENDOCRINOLOGY: ARE YOU DIABETIC? YES . OTHER: DO YOU NEED ANY PRESCRIPTIONS? NO . IF YES, PLEASE LIST: ____ . ANY NEW PROBLEMS WITH YOUR MEDICATIONS? NO . WHEN DID YOU LAST EAT? ____ . WHEN DID YOU LAST DRINK? ____ . WHAT DID YOU LAST DRINK? ____ . NAME OF PERSON DRIVING YOU HOME? ____ . DO YOU HAVE ANY OTHER QUESTIONS OR CONCERNS NO . VITAL SIGNS WT 225.8 LBS, HT 66 IN, BMI 36.44 INDEX, BP 137/79 MM HG, HR 91 /MIN, RR 18 /MIN, TEMP 99.5 F, OXYGEN SAT % 95%, SAFE IN ENV? (Y/N) YES, NA INITIALS SC 13:27, REVIEWED BY: RIMA. 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 IT IS NOT A COPY OF THE [employer] PROGRESS NOTE. JOED
== END ==
LOC: M PAIN 13:00
PROVIDERS: ATTEND Nurse Practitioner Family
DX: D36.15 Benign neoplasm of peripheral nerves and autonomic nervous system of abdomen (principal); R10.30 Lower abdominal pain, unspecified; Z86.59 Personal history of other mental and behavioral disorders; E11.9 Type 2 diabetes mellitus without complications; I11.9 Hypertensive heart disease without heart failure; M19.90 Unspecified osteoarthritis, unspecified site; Z86.79 Personal history of other diseases of the circulatory system; Z88.0 Allergy status to penicillin; Z88.1 Allergy status to other antibiotic agents; Z88.5 Allergy status to narcotic agent; Z88.6 Allergy status to analgesic agent; Z88.8 Allergy status to other drugs, medicaments and biological substances; Z79.4 Long term (current) use of insulin; Z79.899 Other long term (current) drug therapy

== ENCOUNTER 2018-07-04 15:15 | Emergency (ER) | payer OTHER ==
[~2018-07-04] VITALS: Ht 167.6 cm; Wt 101.6 kg
[~2018-07-04 15:15] MED LIST changes: -/CELE20CA; -/CELE20CA OR; -/CELE20CA PO; -/GLYB5TA; -/PANT40TA; +CELE1CAP4; +CELE1CAP4 OR; +CELE1CAP4 PO; +GLYB1TAB29; +HYDR-2541 PO; -METR-201 PO; +METR-265 PO; +OXYC1TAB23 OR; -PERCOCET OR; +PROT1TAB2
[2018-07-04] MEDS ORDERED: NS 1,000 ML IV ONE (17:45)
[2018-07-04] MEDS ORDERED: KETOROLAC 30 MG/ML VIAL (J1885) IV ONE (17:45)
[2018-07-04] MEDS ORDERED: ONDANSETRON 4MG/2ML VIAL (J2405) IV ONE (17:45)
[2018-07-04 17:58] LABS: BASO # 0.1 10^3/uL (0.0-0.2); BASO % 0.8 % (0.0-1.0); EOS # 0.2 10^3/uL (0.0-0.50); EOS % 2.6 % (0.0-3.0); HEMATOCRIT 41.1 % (36.0-47.0); HEMOGLOBIN 13.4 g/dl (12.0-15.5); LYMPH # 2.6 10^3/uL (1.5-4.5); LYMPH % 36.5 % (24.0-44.0); MEAN CORPUSCULAR HEMOGLOBIN 27.1 pg (27.0-33.0); MEAN CORPUSCULAR HGB CONC 32.6 g/dl (32.0-36.5); MEAN CORPUSCULAR VOLUME 83.2 fl (80.0-96.0); MONO # 0.6 10^3/uL (0.0-0.8); MONO % 8.2 % (0.0-5.0); NEUTROPHILS # 3.7 10^3/uL (1.8-7.7); NEUTROPHILS % 51.5 % (36.0-66.0); PLATELET COUNT, AUTOMATED 199 10^3/uL (150-450); RED BLOOD COUNT 4.94 10^6/uL (4.00-5.40); WHITE BLOOD COUNT 7.2 10^3/uL (4.0-10.0)
[2018-07-04 18:27] LABS: ALT/SGPT 23 U/L (12-78); BILIRUBIN,DIRECT < 0.1 MG/DL (0.0-0.2); BILIRUBIN,TOTAL 0.4 MG/DL (0.2-1.0); BLOOD UREA NITROGEN 10 MG/DL (7-18); CALCIUM LEVEL 8.8 MG/DL (8.8-10.2); CARBON DIOXIDE LEVEL 27 MEQ/L (21-32); CHLORIDE LEVEL 102 MEQ/L (98-107); CREATININE FOR GFR 0.74 MG/DL (0.55-1.30); GLOMERULAR FILTRATION RATE > 60.0 (>45); GLUCOSE, FASTING 188 MG/DL (70-100); LIPASE 106 U/L (73-393); POTASSIUM SERUM 4.2 MEQ/L (3.5-5.1); SODIUM LEVEL 137 MEQ/L (136-145); TOTAL PROTEIN 7.5 GM/DL (6.4-8.2)
[2018-07-04] MEDS ORDERED: ISOVUE-370 76% 100ML VIAL (Q9967) As Ordered ONE (18:36)
[2018-07-04] MEDS ORDERED: fentaNYL 100 MCG/2 ML INJECTION (J3010) IV ONE (20:00)
--- NOTE | 2018-07-04 20:21 | REPVR ---
EXAM: CT Abdomen and Pelvis With Contrast EXAM DATE/TIME: 07/04/2018 6:50 PM CLINICAL HISTORY: 62 years old, female; Abdominal pain; Localized; Right lower quadrant (rlq); Additional info: Rlq pain TECHNIQUE: Imaging protocol: Axial computed tomography images of the abdomen and pelvis with intravenous contrast. Coronal and sagittal reformatted images were created and reviewed. Radiation optimization: All CT scans at this facility use at least one of these dose optimization techniques: automated exposure control; mA and/or kV adjustment per patient size (includes targeted exams where dose is matched to clinical indication); or iterative reconstruction. Contrast material: ISOVUE 370; Contrast volume: 100 ml; Contrast route: IV; COMPARISON: CT ABD/PEL W/IV CONTRAST ONLY 04/04/2018 2:16 PM FINDINGS: Lungs: Coarse linear opacities in the medial basal segment of the left lower lobe. ABDOMEN: Liver: The liver is low in density. Liver measures at least 17 cm in craniocaudal span. Gallbladder and bile ducts: Normal. No calcified stones. No ductal dilation. Pancreas: Normal. No ductal dilation. Spleen: Normal. No splenomegaly. Adrenals: Normal. No mass. Kidneys and ureters: Mild fullness of the renal pelvis of both kidneys slightly more conspicuous than previous. No renal, ureteral or bladder calculi. Stomach and bowel: Multiple small bowel loops positioned contiguous with a scar in the lower anterior abdomen suggests the presence of adhesions. No obstruction. There is enhancement of the mayorga of a short section of what appears to be small bowel (series 201 images 98 through 109) at the level of the interloop and anterior adhesions completely unchanged from previous in terms of size and location (previous series 301 images 101 through 112) Surgical clips noted within a small bowel loop in the right midabdomen. Appendix: Not seen as a separate structure.. PELVIS: Bladder: Unremarkable as visualized. Reproductive: The uterus is absent. Ovaries not seen as separate structures. ABDOMEN and PELVIS: Intraperitoneal space: Normal. No free air. No significant fluid collection. Bones/joints: Compression fracture of the L1 vertebral body with 40% loss of height of the vertebral body. No retropulsed fragments. Soft tissues: Small sliding hiatal hernia. Vasculature: The splenic vein appears occluded at the splenic hilum. Lymph nodes: 6.7 mm calcified lymph node in the retroperitoneum on the left anterior to the psoas. IMPRESSION: 1. New compression fracture at L1. No retropulsed fragments. 2. Postoperative changes in the anterior abdominal wall not significantly changed from previous. The appearance suggests the presence of small bowel adhesions. Focal enhancement of what appears to be a small bowel loop adhesed to the anterior abdominal wall is completely unchanged from previous in size and location. Contained abscess not entirely excluded. 3. Hepatic steatosis. Electronically signed by: Makayla Appiah On 07/04/2018 20:20:56 PM
[2018-07-04] MEDS ORDERED: HYDR-4514 PO (20:55)
[2018-07-04] MEDS ORDERED: MACR100C43 PO (20:55)
[2018-07-04 21:23] VITALS: BP 164/74
== END 2018-07-04 21:25 | disposition home or self-care (01) ==
LOC: M ED 15:15
DX: K56.50 Intestinal adhesions [bands], unspecified as to partial versus complete obstruction (principal); S32.010A Wedge compression fracture of first lumbar vertebra, initial encounter for closed fracture; X58.XXXA Exposure to other specified factors, initial encounter; Y92.89 Other specified places as the place of occurrence of the external cause; N39.0 Urinary tract infection, site not specified; E11.9 Type 2 diabetes mellitus without complications; I10 Essential (primary) hypertension; E78.5 Hyperlipidemia, unspecified; D86.9 Sarcoidosis, unspecified; F33.9 Major depressive disorder, recurrent, unspecified; Z79.899 Other long term (current) drug therapy; Z79.4 Long term (current) use of insulin; Z88.0 Allergy status to penicillin; Z88.1 Allergy status to other antibiotic agents; Z88.5 Allergy status to narcotic agent; Z88.8 Allergy status to other drugs, medicaments and biological substances
CPT/HCPCS: 36415; 74177; 80048; 80076; 81001; 83690; 85025; 87088; 87186; 96361; 96374; 96375; 99284; G0463; J1885; J2405; J3010; Q9967

== ENCOUNTER → 2018-07-10 | Outpatient (REF) | payer OTHER ==
[~2018-07-10] MED LIST changes: +HYDR-4514 PO; +MACR100C43 PO
[2018-07-10 16:49] LABS: CHOLESTEROL RISK RATIO 2.466 (<5); THYROID STIMULATING HORMONE 2.47 uIU/ML (0.358-3.740)
[2018-07-10 17:08] LABS: MALB URINE SIEMENS 7.2 MG/L; MAU/CREAT RATIO 4.9 MCG/MG (0.0-30.0)
== END ==
LOC: M SFHCLERA 10:56
PROVIDERS: ATTEND Family Medicine
DX: E11.9 Type 2 diabetes mellitus without complications (principal)
CPT/HCPCS: 80061; 82043; 83036; 84443; G0463

== ENCOUNTER → 2018-07-29 | Outpatient (CLI) | payer OTHER ==
--- NOTE | 2018-08-02 11:03 | DEXA ---
AP SPINE L2 - L4 1.024 -1.5 -0.1 LT FEMUR TOTAL 0.845 -1.3 -0.2 LT NECK 0.817 -1.6 -0.2 RT FEMUR TOTAL 0.875 -1.0 0.0 RT NECK 0.876 -1.2 0.2 TOTAL BODY TOTAL L1 History of compression fracture. COMMENTS: There is low bone density of the spine and hips. There is low bone density of the spine. The density of the L2-L4 spine has decreased 2.1% since 02/14/2016. The density of the left hip has decreased 2.9% since 02/14/2016. The density of the right hip has increased 1.0% since 02/14/2016. The decreased density of the spine does represent a significant change. The decreased density of the left hip does represent a significant change. The increased density of the right hip does not represent a significant change. FOLLOW-UP: Recommendation for the next bone density exam: 2 years. ANIYAH
== END ==
LOC: M WHC 14:19
PROVIDERS: ATTEND Family Medicine
DX: M85.89 Other specified disorders of bone density and structure, multiple sites (principal); Z13.820 Encounter for screening for osteoporosis

== ENCOUNTER → 2018-08-05 | Outpatient (REF) | payer OTHER ==
[2018-08-05 16:27] LABS: BLOOD UREA NITROGEN 11 MG/DL (7-18); GLOMERULAR FILTRATION RATE > 60.0 (>45)
== END ==
LOC: M LABDRAW1 15:34
PROVIDERS: ATTEND Orthopaedic Surgery
DX: Z01.812 Encounter for preprocedural laboratory examination (principal)

== ENCOUNTER → 2018-08-15 | Outpatient (CLI) | payer OTHER ==
--- NOTE | 2018-08-15 10:01 | REPMRS ---
Patient History The patient states she has not had a clinical breast exam in over a year. Patient is nulliparous. Family history of breast cancer in mother. 2D only due to insurance. [facility] for [facility] 19.[facility]%. Digital Mammo Screening Bilat: August 15, 2018 - Exam #: [id number] Bilateral CC and MLO view(s) were taken. Technologist: Emma Rodas, Technologist Prior study comparison: 2014, bilateral mammogram, performed at [facility]. FINDINGS: The breast tissue is heterogeneously dense. This may lower the sensitivity of mammography. There has been no change in the appearance of the mammogram from the prior studies. There is a moderate amount of residual fibroglandular tissue which is fairly symmetric. There is no interval development of dominant mass, areas of architectural distortion, or clustered microcalcification typical of malignancy. Assessment: BI-RADS/ACR category 1 mammogram. Negative Mammogram. Recommendation Routine screening mammogram in 1 year (for women over age 40). This mammogram was interpreted with the aid of an FDA-approved computer-aided dectection system. Electronically Signed By: Boris Wagoner MD 08/15/18 0718
== END ==
LOC: M RAD 08:44
PROVIDERS: ATTEND Family Medicine
DX: Z12.31 Encounter for screening mammogram for malignant neoplasm of breast (principal); Z80.3 Family history of malignant neoplasm of breast; R92.8 Other abnormal and inconclusive findings on diagnostic imaging of breast

== ENCOUNTER → 2018-09-17 | Outpatient (CLI) | payer OTHER ==
--- NOTE | 2018-09-19 00:31 | ECWPNPC ---
PATIENT NAME: YUMI DOS SANTOS : 1955 GENDER: FEMALE VISIT DATE: 09/17/2018 DISCHARGE DATE: 09/17/18 1222 VISIT LOCKED DATE TIME: PHYSICIAN: HORTENSIA QUARLES RESOURCE: HORTENSIA QUARLES REASON FOR APPOINTMENT 1. ABDOMINAL PAIN-NEED TO DESTROY PERCOCET HISTORY OF PRESENT ILLNESS HISTORY OF PRESENT ILLNESS: PAIN THE PATIENT DESCRIBES THE PAIN... 63 YEAR OLD FEMALE IN FOR CHRONIC PAIN FOLLOW UP. SHE WOULD LIKE TO DISCUSS TPI OF THE ABDOMEN. SHE CURRENTLY RATES HER PAIN AT A 9/10 AND DESCRIBES IT SORE, TENDER, SHARP, STABBING, AND SHOOTING. SHE FEELS HER MEDICATIONS ARE WORKING WELL AND SHE DENIES MSE. FALL RISK SCREENING: SCREENING :NO FALLS REPORTED IN THE LAST YEAR CURRENT MEDICATIONS TAKING CYMBALTA 60 MG CAPSULE DELAYED RELEASE PARTICLES 1 CAPSULE WITH FOOD ORALLY FOR PAIN BID MDD2 TAKING MAY USE CINAMON/OTC 1000 MG. 2 CAPLETS ORALLY DAILY TAKING BLOOD GLUCOSE TEST - STRIP CHECK ACHS E11.9. IN VITRO DIRECTED TAKING GLUCOMETER E11.9. CHECK ACHS TAKING LANCETS - MISCELLANEOUS E11.9 CHECK ACHS TAKING NORCO 5-325 MG TABLET 1 TABLET NEEDED ORALLY EVERY 6 HRS PRN MDD4 TAKING BENAZEPRIL HCL 40 MG TABLET 1 TABLET ORALLY DAILY TAKING LIPITOR 10 MG TABLET 1 TABLET ORALLY ONCE A DAY TAKING HYDROCHLOROTHIAZIDE 25 MG TABLET 1 TABLET ORALLY ONCE A DAY TAKING CALCIUM-VITAMIN D 600-400 MG-UNIT TABLET 1 TABLET WITH A MEAL ORALLY TWICE A DAY TAKING PEN NEEDLES DIRECTED FOR CHAI ORTIZ E11.9 4 NEEDLES PER MONTH TAKING TRIAMCINOLONE ACETONIDE 0.5 % CREAM 1 APPLICATION TO AFFECTED AREA EXTERNALLY TWICE A DAY TAKING ACTOS 30 MG TABLET 1 TABLET ORALLY ONCE A DAY TAKING LANTUS 100 UNIT/ML SOLUTION DIRECTED SUBCUTANEOUS 22UNITS IN AM, 40 UNTIS AT HS, NOTES: OK TO SUBSTITUTE INSULIN PENS IF SHE IS USING PENS INSTEAD OF VIALS TAKING TRULICITY 0.75 MG/0.5ML SOLUTION PEN-INJECTOR 1 INJECTION SUBCUTANEOUS WEEKLY TAKING METFORMIN HCL 1000 MG TABLET 1 TABLET WITH A MEAL ORALLY BID, NOTES: STOP JANUMET NOT-TAKING HYDROCODONE-ACETAMINOPHEN 5-325 MG TABLET 1 TABLET NEEDED ORALLY FOR PAIN EVERY 6 HRS MDD4, NOTES: DUPLICATE NOT-TAKING PREGABALIN 100 MG CAPSULE 1 CAPSULE ORALLY TWICE A DAY NOT-TAKING LYRICA 50 MG CAPSULE 1 CAPSULE ORALLY FOR PAIN THREE TIMES A DAY MDD3 NOT-TAKING MACROBID 100 MG CAPSULE 1 CAPSULE WITH FOOD ORALLY EVERY 12 HRS NOT-TAKING PERCOCET 5-325 MG TABLET 1 TABLET NEEDED ORALLY Q8H PRN MDD3 NOT-TAKING CLINDAMYCIN HCL 150 MG CAPSULE 1 CAPSULE ORALLY FOUR TIMES DAILY NOT-TAKING CLINDAMYCIN HCL 150 MG CAPSULE 1 CAPSULE ORALLY TID NOT-TAKING TRAMADOL HCL 50 MG TABLET 1 TAB ORALLY EVERY 6 HOURS NEEDED/MMD#4 MEDICATION LIST REVIEWED AND RECONCILED WITH THE PATIENT PAST MEDICAL HISTORY OBESITY DEPRESSION: PROZAC AND CYMBALTA; SHE HAD IN HIGH SCHOOL SUICIDE ATTEMPT WITH SWALLOWING PILLS, HAS FOUND COUNSELING HELPFUL IN THE PAST. SARCOIDOSIS: A CHILD WAS DIAGNOSED WITH A BIOPSY, HAS NEVER SEEN A DOCTOR FOR THIS SINCE CHILDHOOD. DIABETES MELLITUS HYPERTENSION HEART DISEASE: "I HAVE UPSIDE DOWN T-WAVES, FATHER AT AGE 68 FROM IT AND I HAVE HYPERTENSION" OSTEOARTHRITIS: "ALL OVER" CHRONIC PAIN ALLERGIES TERRAMYCIN: HIVES/WATER BLISTERS - ALLERGY PENICILLIN (FOR ALLERGIES USE ONLY): HIVES/WATER BLISTERS - ALLERGY ASPIRIN: RASH/WATER BLISTERS - ALLERGY TEGRETOL: HIVES/WATER BLISTERS - ALLERGY LASIX: HIVES/WATER BLISTERS - ALLERGY BENADRYL: HIVES/WATER BLISTERS - ALLERGY MORPHINE SULFATE: HIVES/WATER BLISTERS - ALLERGY SURGICAL HISTORY ABDOMINAL/ MULTIPLE HERNIA REPAIRS WITH MESH RESULTING IN INFECTION LAST SURGERY 2012 CYST REMOVAL/ LEFT BREAST APPENDECTOMY HYSTERECTOMY ANKLE SURGERY/BOTH ANKLES CERVICAL FUSION 1986 BENIGN LUMPS REMOVED LEFT ARM 2016 SPINAL CORD STIMULATOR TRIAL 11/2017 FAMILY HISTORY FATHER: 68 YRS, DIAGNOSED WITH HEART DISEASE MOTHER: 68 YRS, HEART DISEASE SOCIAL HISTORY GENERAL: TOBACCO USE ARE YOU A: NONSMOKER , ARE YOU A: NONSMOKER. PAIN CLINIC PFS, CLERGY, PUBLIC HEALTH REFERRALS PFS REFERRAL NEEDED?NO CLERGY REFERRAL NEEDED?NO PUBLIC HEALTH REFERRAL NEEDED?NO WAS THE PROVIDER NOTIFIED OF ANY PERTINENT INFO?NO HAS THE PATIENT BEEN EDUCATED REGARDING HIS/HER PLAN OF CARE?YES HAS THE PATIENT BEEN EDUCATED REGARDING PAIN, THE RISK FOR PAIN, THE IMPORTANCE OF EFFECTIVE PAIN MANAGEMENT, AND THE PAIN ASSESSMENT PROCESS?YES LATEX QUESTIONNAIRE LATEX ALLERGY : HAVE YOU EVER DEVELOPED ANY TYPE OF REACTION AFTER HANDLING LATEX PRODUCTS SUCH RUBBER GLOVES, CONDOMS, DIAPHRAGMS, BALLOONS, SOCKS, OR UNDERWEAR?NO LATEX ALLERGY : HAVE YOU EVER DEVELOPED ANY TYPE OF REACTION DURING OR AFTER DENTAL APPOINTMENT, VAGINAL/RECTAL EXAMINATION, SURGICAL PROCEDURE, OR ANY OTHER EXPOSURE?NO LATEX RISK : HAVE YOU EVER HAD ANY DIFFICULTY BREATHING OR HIVES AFTER EATING OR HANDLING ANY FRUITS, OR VEGETABLES; SUCH KIWI, BANANAS, STONE FRUITS, OR CHESTNUTSNO LATEX RISK : DO YOU HAVE A PREVIOUS PERSONAL HISTORY OF MORE THAN NINE SURGERIES, SPINA BIFIDA, OR REPEATED CATHERIZATIONS? YES - PLEASE INDICATE : > 9 SURGERIES LATEX RISK : ARE YOU FREQUENTLY EXPOSED TO LATEX PRODUCTS IN YOUR OCCUPATION?NO DATE ASKED : 05/27/2018 CAFFEINE CAFFEINE USE? NO. ADVANCE DIRECTIVE ADVANCE DIRECTIVE DISCUSSED WITH PATIENT:YES HCP - JESSICA DOS SANTOS () & NINA HUFF CATHOLIC NONE. LANGUAGE LANGUAGES SPOKEN:BURMESE DOMESTIC VIOLENCE DO YOU FEEL SAFE IN YOUR ENVIRONMENT?YES ALCOHOL SCREENING DID YOU HAVE A DRINK CONTAINING ALCOHOL IN THE PAST YEAR?NO POINTS0 INTERPRETATIONNEGATIVE RECREATIONAL DRUG USE DRUG USE? NO , PATIENT DENIES ABUSE OR MISSUSED OF ANY MEDICATION . , PATIENT DENIES USE OF ANY ILLEGAL SUBSTANCE INCLUDING MARIJUANA OR COCAINE .. LEARNING BARRIERS / SPECIAL NEEDS ABILITY TO UNDERSTAND VERBAL INSTRUCTIONS AVERAGE, ABILITY TO UNDERSTAND WRITTEN INSTRUCTIONS AVERAGE, KNOWLEDGE OF EDUCATIONAL NEEDS/TREATMENT PLAN AVERAGE, TAOISM? NO, LEARNING PREFERENCE NO PREFERENCE, ORIENTED TO PLAN OF CARE: PATIENT, TEACHING MATERIALS PRINTED HANDOUT, RESPONSE TO EDUCATION EXPLAINES ACCURATELY/VERBALIZES UNDERSTANDING, PAIN MANAGEMENT PATIENT, TEACHING MATERIALS PRINTED HANDOUT, RESPONSE TO EDUCATION EXPLAINS ACCURATELY/VERBALIZES UNDERSTANDING. REVIEWED WITH PT 11/21/17 1529 BVREVIEWED WITH PATIENT 05/27/18 1337 JSREVIEWED WITH PT 09/17/18 1134 BV. HOSPITALIZATION/MAJOR DIAGNOSTIC PROCEDURE SURGERY RELATED REVIEW OF SYSTEMS REVIEWED BY: PROVIDER: DONNELL ULRICH-Alejandro . CONSTITUTIONAL: ANY CHANGE IN YOUR MEDICAL CONDITION? NO . CHILLS NO . FEVER NO . INFECTION: DO YOU HAVE NEW INFECTIONS? NO . DO YOU HAVE HISTORY OF MRSA? NO . MUSCULOSKELETAL: ANY NEW PATTERNS OF PAIN OR NUMBNESS? NO . GASTROENTEROLOGY: ANY NEW CHANGE IN BOWEL CONTROL? NO . GENITOURINARY: ANY NEW CHANGE IN BLADDER CONTROL? NO . IS THERE A CHANCE YOU COULD BE ? NO . HEMATOLOGY/LYMPH: DO YOU TAKE ANY BLOOD THINNERS? (FOR EXAMPLE- COUMADIN, PLAVIX, AGGRENOX, PLATEL, PRADAXA, OR XARELTO) NO . WHEN WAS YOUR LAST DOSE? DATE: TIME: . NEUROLOGY: HAVE YOU FALLEN IN THE PAST 12 MONTHS? NO . ANY NEW EXTREMITY NUMBNESS OR WEAKNESS? NO . CARDIOLOGY: DO YOU HAVE A PACEMAKER OR DEFIBRILLATOR? NO . RESPIRATORY: HAVE YOU BEEN SICK IN THE PAST WEEK? NO . FEVER NO . FLU LIKE SYMPTOMS? NO . COUGH NO . INTEGUMENTARY: DO YOU HAVE ANY RASHES OR OPEN SORES? NO . ALLERGIC/IMMUNO: ARE YOU ALLERGIC TO IV DYE? NO . ANY NEW ALLERGIES? NO . PSYCHIATRIC: DO YOU HAVE THOUGHTS OF HURTING YOURSELF OR SOMEONE ELSE? NO . ARE YOU ABUSED, NEGLECTED, OR IN AN UNSAFE ENVIRONMENT? NO . ENDOCRINOLOGY: ARE YOU DIABETIC? YES, ON MEDICATION . OTHER: DO YOU NEED ANY PRESCRIPTIONS? YES, LYRICA AND HYDROCODONE . IF YES, PLEASE LIST: ____ . ANY NEW PROBLEMS WITH YOUR MEDICATIONS? NO . WHEN DID YOU LAST EAT? ____ . WHEN DID YOU LAST DRINK? ____ . WHAT DID YOU LAST DRINK? ____ . NAME OF PERSON DRIVING YOU HOME? ____ . DO YOU HAVE ANY OTHER QUESTIONS OR CONCERNS NO . VITAL SIGNS WT 218 LBS, HT 66 IN, BMI 35.18 INDEX, BP 172/76 MM HG, HR 82 /MIN, RR 18 /MIN, TEMP 96.4 F, OXYGEN SAT % 96%, NA INITIALS AW 1120, REVIEWED BY: BV. EXAMINATION GENERAL EXAMINATION: GENERALNO ACUTE DISTRESS, WELL NOURISHED AND HYDRATED. PSYCHAPPROPRIATE MOOD AND AFFECT . LUNGS:CLEAR TO AUSCULTATION BILATERALLY, NO WHEEZES, RHONCHI, RALES. HEART:NO MURMURS, REGULAR RATE AND RHYTHM. ABDOMEN:POINT TENDER ALONG LLQ AND RLQ. SKIN SHOWS NO ERYTHEMA, ECCHYMOSIS, INCREASED WARMTH, AND/OR SKIN ERUPTIONS. . ASSESSMENTS MYALGIA, OTHER SITE - M79.18 (PRIMARY) TREATMENT MYALGIA, OTHER SITE NOTES: TPI OF ABDOMEN VS SCAR NEUROMA. CLINICAL NOTES: 63 YEAR OLD FEMALE IN FOR CHRONIC PAIN FOLLOW UP. GIVEN PRESENTING SYMPTOMS AND RESULTS OF PHYSICAL EXAMINATION RECOMMENDED TPI VS SCAR NEUROMA AND POST PROCEDURAL FOLLOW UP. PATIENT HAS EXPRESSED UNDERSTANDING OF AND WAS IN AGREEMENT WITH TX PLAN. GIVEN TIME TO ASK QUESTIONS AND EXPRESS CONCERNS. . OTHERS REFILL NORCO TABLET, 5-325 MG, 1 TABLET NEEDED, ORALLY, EVERY 6 HRS PRN MDD4, 30 DAY(S), 120, REFILLS 0 REFILL LYRICA CAPSULE, 50 MG, 1 CAPSULE, ORALLY FOR PAIN, THREE TIMES A DAY MDD3, 30 DAY(S), 90, REFILLS 0 PREVENTIVE MEDICINE PAIN CLINIC TEACHING: PROCEDURE TEACHING PT GIVEN WRITTEN AND VERBAL PRE PROCEDURE INSTRUCTIONS. PT VERBALIZES UNDERSTANDING OF ALL INSTRUCTIONS. ANAYELI DAVENPORT 09/17/2018 12:25:11 PM > . PROCEDURE CODES FA211 ESTABILISHED PATIENT [facility] CHARGE DISPOSITION & COMMUNICATION FOLLOW UP POST PROCEDURE (REASON: TPI VS SCAR NEUROMA) ELECTRONICALLY SIGNED BY MOJGAN KENT ON 09/18/2018 AT 10:04 AM EDT DISCLAIMER : THIS IS A VISIT SUMMARY EXTRACTED FROM THE [employer] CHART. IT IS NOT A COPY OF THE [employer] PROGRESS NOTE. ANIYAH
== END ==
LOC: M PAIN 11:15
PROVIDERS: ATTEND Family Medicine
DX: M79.18 Myalgia, other site (principal); E66.9 Obesity, unspecified; F32.9 Major depressive disorder, single episode, unspecified; E11.9 Type 2 diabetes mellitus without complications; I10 Essential (primary) hypertension; M15.0 Primary generalized (osteo)arthritis; G89.29 Other chronic pain; Z98.1 Arthrodesis status; Z90.49 Acquired absence of other specified parts of digestive tract; Z90.710 Acquired absence of both cervix and uterus; Z79.891 Long term (current) use of opiate analgesic; Z79.4 Long term (current) use of insulin; Z79.899 Other long term (current) drug therapy; Z88.0 Allergy status to penicillin; Z88.5 Allergy status to narcotic agent; Z88.6 Allergy status to analgesic agent; Z88.8 Allergy status to other drugs, medicaments and biological substances; Z68.35 Body mass index [BMI] 35.0-35.9, adult

== ENCOUNTER → 2018-11-01 | Outpatient (REF) | payer OTHER ==
[2018-11-01 14:14] LABS: ALBUMIN 3.4 GM/DL (3.2-5.2); ALT/SGPT 16 U/L (12-78); BILIRUBIN,TOTAL 0.3 MG/DL (0.2-1.0); BLOOD UREA NITROGEN 13 MG/DL (7-18); CALCIUM LEVEL 9.1 MG/DL (8.8-10.2); CARBON DIOXIDE LEVEL 29 MEQ/L (21-32); CHLORIDE LEVEL 105 MEQ/L (98-107); CREATININE FOR GFR 0.63 MG/DL (0.55-1.30); GLOMERULAR FILTRATION RATE > 60.0 (>45); GLUCOSE, FASTING 152 MG/DL (70-100); SODIUM LEVEL 141 MEQ/L (136-145); TOTAL PROTEIN 6.9 GM/DL (6.4-8.2)
[2018-11-01 14:30] LABS: HEMOGLOBIN A1c 6.7 %
== END ==
LOC: M SFHCLERA 12:13
PROVIDERS: ATTEND Family Medicine
DX: E11.9 Type 2 diabetes mellitus without complications (principal)

== ENCOUNTER → 2018-11-12 | Outpatient (REF) | payer OTHER | LOC: M SFHCLERA 16:19 | PROVIDERS: ATTEND Family Medicine | DX: M79.662 Pain in left lower leg (principal) | CPT/HCPCS: 85379; G0463 ==

== ENCOUNTER → 2018-11-14 | Outpatient (CLI) | payer OTHER ==
--- NOTE | 2018-11-14 10:10 | REP ---
Left lower extremity Duplex Doppler venous ultrasound: Real time compression and duplex Doppler interrogation of the left lower extremity deep venous system is performed. The left common femoral, superficial femoral and popliteal veins are fully compressible with transducer pressure and demonstrate normal spontaneous and phasic flow, without evidence of deep venous thrombosis. Impression: No evidence of deep venous thrombosis of the left lower extremity femoral popliteal venous system. Electronically Signed by Boris Wagoner MD 11/14/2018 10:01 A
== END ==
LOC: M RAD 09:22
PROVIDERS: ATTEND Family Medicine
DX: M79.662 Pain in left lower leg (principal)

== ENCOUNTER → 2018-12-25 | Outpatient (REF) | payer OTHER ==
[~2018-12-25] MED LIST changes: -OMEP40CA2 PO; +OMEP40CA97 PO
== END ==
LOC: M SFHCLERA 11:54
PROVIDERS: ATTEND Family Medicine
DX: Z79.891 Long term (current) use of opiate analgesic (principal)

== ENCOUNTER → 2019-01-13 | Outpatient (CLI) | payer OTHER ==
[~2019-01-13] MED LIST changes: +GASTROGRAFIN SOLUTION 30ML (Q9963) As Ordered ONE; +ISOVUE-370 76% 100ML VIAL (Q9967) As Ordered ONE
--- NOTE | 2019-01-13 11:10 | REP ---
CT abdomen and pelvis without and with IV contrast: With oral contrast. History: Scar condition and fibrosis of the skin. Comparison study: July 04, 2018. CT contrast dose: 100 mL of intravenous Isovue 370 is administered. Findings: Preliminary digital senior materials planner radiographs demonstrate moderate stool in the right colon and rectum. Bowel gas pattern is otherwise unremarkable. The lung bases remain clear on axial CT images. No focal hepatic or splenic lesion is observed. No adrenal lesion is seen. No abnormalities noted in the pancreas or the gallbladder. The kidneys enhance symmetrically and are morphologically intact. No intrarenal calculus or hydronephrosis is seen. Urinary bladder is unremarkable. The uterus is surgically absent. The appendix is surgically absent. Small and large bowel loops are normal in caliber. No obstructive lesion is seen. There is extensive fibrosis the anterior abdominal wall again noted with some fibrosis suspected on the peritoneal surface as well as the superficial surface. No abdominal wall defect is seen. Small bowel loops distributed adjacent to the anterior abdominal wall are unchanged suggesting some adhesion or fibrosis here as well. No bony destructive lesion is seen. Impression: Fibrotic changes in the anterior abdominal wall and in the anterior inferior small bowel loops adjacent to it unchanged from the prior studies. No obstructive lesion is appreciated. No acute intra-abdominal abnormality. Moderate stool throughout the colon. Electronically Signed by Alverto Saleem MD 01/13/2019 12:45 P
== END ==
LOC: M RAD 07:48
PROVIDERS: ATTEND Plastic Surgery Surgery of the Hand
DX: L90.5 Scar conditions and fibrosis of skin (principal)

== ENCOUNTER → 2019-03-03 | Outpatient (CLI) | payer OTHER ==
[~2019-03-03] MED LIST changes: +FLUO10CA15 PO; -FLUO10CA8 PO; -GASTROGRAFIN SOLUTION 30ML (Q9963) As Ordered ONE; -ISOVUE-370 76% 100ML VIAL (Q9967) As Ordered ONE
--- NOTE | 2019-03-05 00:48 | ECWPNPC ---
PATIENT NAME: YUMI DOS SANTOS : 1955 GENDER: FEMALE VISIT DATE: 03/03/2019 DISCHARGE DATE: 03/03/19 1209 VISIT LOCKED DATE TIME: PHYSICIAN: HORTENSIA QUARLES RESOURCE: HORTENSIA QUARLES REASON FOR APPOINTMENT 1. ABDOMINAL/MEDS, PER CW HISTORY OF PRESENT ILLNESS HISTORY OF PRESENT ILLNESS: PAIN THE PATIENT DESCRIBES THE PAIN... 63-YEAR-OLD FEMALE IN FOR CHRONIC PAIN FOLLOW-UP. SHE WAS SCHEDULED FOR A TRIGGER POINT INJECTION HOWEVER PATIENT WAS UNABLE TO OBTAIN THESE RELATED TO OPEN WOUNDS. PATIENT CONTINUES TO HAVE OPEN WOUNDS TODAY AND STATES SHE HAS BEEN SEEN BY GEN. SURGERY FOR THESE. SHE RATES HER PAIN CURRENTLY AT AN 8 OUT OF 10 AND DESCRIBES IT ACHING, SHARP, STABBING, AND TENDER. SHE DOES ADMIT THAT HER MEDICATIONS ARE WORKING WELL AND DENIES MED SIDE EFFECTS AT THIS TIME. FALL RISK SCREENING: SCREENING :NO FALLS REPORTED IN THE LAST YEAR CURRENT MEDICATIONS TAKING CYMBALTA 60 MG CAPSULE DELAYED RELEASE PARTICLES 1 CAPSULE WITH FOOD ORALLY BID TAKING LIPITOR 40 MG TABLET 1 TABLET ORALLY ONCE A DAY TAKING MAY USE CINAMON/OTC 1000 MG. 2 CAPLETS ORALLY DAILY TAKING BLOOD GLUCOSE TEST - STRIP CHECK ACHS E11.9. IN VITRO DIRECTED TAKING GLUCOMETER E11.9. CHECK ACHS TAKING LANCETS - MISCELLANEOUS E11.9 CHECK ACHS TAKING PEN NEEDLES DIRECTED FOR BYDUREON BCISE E11.9 4 NEEDLES PER MONTH TAKING BENAZEPRIL HCL 40 MG TABLET 1 TABLET ORALLY DAILY TAKING AMLODIPINE BESYLATE 5 MG TABLET 1 TABLET ORALLY ONCE A DAY TAKING LANTUS 100 UNIT/ML SOLUTION DIRECTED SUBCUTANEOUS 22UNITS IN AM, 40 UNTIS AT HS TAKING TRULICITY 0.75 MG/0.5ML SOLUTION PEN-INJECTOR 1 INJECTION SUBCUTANEOUS WEEKLY TAKING METFORMIN HCL 1000 MG TABLET 1 TABLET WITH A MEAL ORALLY BID TAKING LASIX 40 MG TABLET 1 TABLET ORALLY ONCE A DAY TAKING PREGABALIN 50 MG CAPSULE 1 CAPSULE ORALLY THREE TIMES DAILY, NOTES: DO NOT FILL UNTIL 01/04/19 TAKING HYDROCODONE-ACETAMINOPHEN 5-325 MG TABLET 1 TABLET NEEDED ORALLY FOR PAIN EVERY 6 HRS MDD4 NOT-TAKING AMLODIPINE BESYLATE , NOTES: DUPLICATE NOT-TAKING MACROBID 100 MG CAPSULE 1 CAPSULE WITH FOOD ORALLY EVERY 12 HRS NOT-TAKING PERCOCET 5-325 MG TABLET 1 TABLET NEEDED ORALLY Q8H PRN MDD3 NOT-TAKING CLINDAMYCIN HCL 150 MG CAPSULE 1 CAPSULE ORALLY FOUR TIMES DAILY NOT-TAKING CLINDAMYCIN HCL 150 MG CAPSULE 1 CAPSULE ORALLY TID NOT-TAKING TRAMADOL HCL 50 MG TABLET 1 TAB ORALLY EVERY 6 HOURS NEEDED/MMD#4 MEDICATION LIST REVIEWED AND RECONCILED WITH THE PATIENT PAST MEDICAL HISTORY OBESITY DEPRESSION: PROZAC AND CYMBALTA; SHE HAD IN HIGH SCHOOL SUICIDE ATTEMPT WITH SWALLOWING PILLS, HAS FOUND COUNSELING HELPFUL IN THE PAST. SARCOIDOSIS: A CHILD WAS DIAGNOSED WITH A BIOPSY, HAS NEVER SEEN A DOCTOR FOR THIS SINCE CHILDHOOD. DIABETES MELLITUS HYPERTENSION HEART DISEASE: "I HAVE UPSIDE DOWN T-WAVES, FATHER AT AGE 68 FROM IT AND I HAVE HYPERTENSION" OSTEOARTHRITIS: "ALL OVER" CHRONIC PAIN FRACTURED VERTEBRAE ALLERGIES TERRAMYCIN: HIVES/WATER BLISTERS - ALLERGY PENICILLIN (FOR ALLERGIES USE ONLY): HIVES/WATER BLISTERS - ALLERGY ASPIRIN: RASH/WATER BLISTERS - ALLERGY TEGRETOL: HIVES/WATER BLISTERS - ALLERGY BENADRYL: HIVES/WATER BLISTERS - ALLERGY MORPHINE SULFATE: HIVES/WATER BLISTERS - ALLERGY SURGICAL HISTORY ABDOMINAL/ MULTIPLE HERNIA REPAIRS WITH MESH RESULTING IN INFECTION LAST SURGERY 2012 CYST REMOVAL/ LEFT BREAST APPENDECTOMY HYSTERECTOMY ANKLE SURGERY/BOTH ANKLES CERVICAL FUSION 1987 BENIGN LUMPS REMOVED LEFT ARM 2016 SPINAL CORD STIMULATOR TRIAL 11/2017 FAMILY HISTORY FATHER: 68 YRS, DIAGNOSED WITH UNSPECIFIED HEART DISEASE MOTHER: 68 YRS, UNSPECIFIED HEART DISEASE SOCIAL HISTORY GENERAL: TOBACCO USE ARE YOU A: NONSMOKER , ARE YOU A: NONSMOKER. HIV / HEP-C SCREENING HIV TEST OFFERED TO PATIENT:YES DATE OFFERED:11/01/2018 TEST ACCEPTED:NO HEP-C TEST OFFERED TO PATIENT:YES DATE OFFERED:11/01/2018 REASON:PATIENT DECLINED TEST ACCEPTED:NO REASON:PATIENT DECLINED BROCHURE PROVIDED TO PATIENTNO OTHERS AT HOME: SPOUSE. HOUSING: OWNS HOME. DIET: REGULAR. LANGUAGE LANGUAGES SPOKEN:BRITISH DOMESTIC VIOLENCE DO YOU FEEL SAFE IN YOUR ENVIRONMENT?YES RECREATIONAL DRUG USE DRUG USE? NO , PATIENT DENIES ABUSE OR MISSUSED OF ANY MEDICATION . , PATIENT DENIES USE OF ANY ILLEGAL SUBSTANCE INCLUDING MARIJUANA OR COCAINE .. EXERCISE: WALKS, SWIMS. LEARNING BARRIERS / SPECIAL NEEDS BARRIERS TO LEARNING?NO HEARING IMPAIRED?NO VISION IMPAIRED?NO COGNITIVELY IMPAIRED?NO READINESS TO LEARN?YES LEARNING PREFERENCES?NO LEARNING CAPABILITIES PRESENT?YES EMOTIONAL BARRIERS?NO SPECIAL DEVICES?NO TRAILER STEERER NEEDED?NO PAIN CLINIC PFS, CLERGY, PUBLIC HEALTH REFERRALS PFS REFERRAL NEEDED?NO CLERGY REFERRAL NEEDED?NO PUBLIC HEALTH REFERRAL NEEDED?NO WAS THE PROVIDER NOTIFIED OF ANY PERTINENT INFO?NO HAS THE PATIENT BEEN EDUCATED REGARDING HIS/HER PLAN OF CARE?YES HAS THE PATIENT BEEN EDUCATED REGARDING PAIN, THE RISK FOR PAIN, THE IMPORTANCE OF EFFECTIVE PAIN MANAGEMENT, AND THE PAIN ASSESSMENT PROCESS?YES LATEX QUESTIONNAIRE LATEX ALLERGY : HAVE YOU EVER DEVELOPED ANY TYPE OF REACTION AFTER HANDLING LATEX PRODUCTS SUCH RUBBER GLOVES, CONDOMS, DIAPHRAGMS, BALLOONS, SOCKS, OR UNDERWEAR?NO LATEX ALLERGY : HAVE YOU EVER DEVELOPED ANY TYPE OF REACTION DURING OR AFTER DENTAL APPOINTMENT, VAGINAL/RECTAL EXAMINATION, SURGICAL PROCEDURE, OR ANY OTHER EXPOSURE?NO DATE ASKED : 05/27/2018 LATEX RISK : HAVE YOU EVER HAD ANY DIFFICULTY BREATHING OR HIVES AFTER EATING OR HANDLING ANY FRUITS, OR VEGETABLES; SUCH KIWI, BANANAS, STONE FRUITS, OR CHESTNUTSNO LATEX RISK : DO YOU HAVE A PREVIOUS PERSONAL HISTORY OF MORE THAN NINE SURGERIES, SPINA BIFIDA, OR REPEATED CATHERIZATIONS? YES - PLEASE INDICATE : > 9 SURGERIES LATEX RISK : ARE YOU FREQUENTLY EXPOSED TO LATEX PRODUCTS IN YOUR OCCUPATION?NO CAFFEINE CAFFEINE USE? NO. ADVANCE DIRECTIVE ADVANCE DIRECTIVE DISCUSSED WITH PATIENT:YES HCP - JESSICA CONTEELI () & NINA HUFF ALEVISM ALEVISM NO YARSANI BELIEFS THAT WOULD IMPACT HEALTH CARE. MARITAL STATUS: . 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 SEXUAL HX HAD SEX IN THE LAST 12 MONTHS (VAGINAL, ORAL, OR ANAL)?YES WITHMEN ONLY USE PROTECTION?NO HAVE YOU EVER HAD AN STD?NO REVIEWED WITH PT 11/21/17 1529 BVREVIEWED WITH PATIENT 05/27/18 1337 JSREVIEWED WITH PT 09/17/18 1134 BVREVIEWED WITH PATIENT 03/03/2019 LAS. HOSPITALIZATION/MAJOR DIAGNOSTIC PROCEDURE SURGERY RELATED REVIEW OF SYSTEMS REVIEWED BY: PROVIDER: DONNELL VINSON . CONSTITUTIONAL: ANY CHANGE IN YOUR MEDICAL CONDITION? NO . CHILLS NO . FEVER NO . INFECTION: DO YOU HAVE NEW INFECTIONS? NO . DO YOU HAVE HISTORY OF MRSA? NO . MUSCULOSKELETAL: ANY NEW PATTERNS OF PAIN OR NUMBNESS? NO . GASTROENTEROLOGY: ANY NEW CHANGE IN BOWEL CONTROL? NO . GENITOURINARY: ANY NEW CHANGE IN BLADDER CONTROL? NO . IS THERE A CHANCE YOU COULD BE ? NO . HEMATOLOGY/LYMPH: DO YOU TAKE ANY BLOOD THINNERS? (FOR EXAMPLE- COUMADIN, PLAVIX, AGGRENOX, PLATEL, PRADAXA, OR XARELTO) NO . WHEN WAS YOUR LAST DOSE? DATE: TIME: . NEUROLOGY: HAVE YOU FALLEN IN THE PAST 12 MONTHS? NO . ANY NEW EXTREMITY NUMBNESS OR WEAKNESS? YES PT REPORTS NUMBNESS RIGHT HAND/FINGERS OCCASIONALLY . CARDIOLOGY: DO YOU HAVE A PACEMAKER OR DEFIBRILLATOR? NO . RESPIRATORY: HAVE YOU BEEN SICK IN THE PAST WEEK? NO . FEVER NO . FLU LIKE SYMPTOMS? NO . COUGH NO . INTEGUMENTARY: DO YOU HAVE ANY RASHES OR OPEN SORES? YES PT HAS OPEN AREA ABDOMEN, HAS SEEN AND BEEN TREATED BY DR. REDMOND. ALSO HAS AN OPEN AREA RIGHT SHOULDER/BACK. USING BACITRACIN, TO DISCUSS OPEN AREAS WITH HER PRIMARY AT NEXT APPOINTMENT. . ALLERGIC/IMMUNO: ARE YOU ALLERGIC TO IV DYE? NO . ANY NEW ALLERGIES? NO . PSYCHIATRIC: DO YOU HAVE THOUGHTS OF HURTING YOURSELF OR SOMEONE ELSE? NO . ARE YOU ABUSED, NEGLECTED, OR IN AN UNSAFE ENVIRONMENT? NO . ENDOCRINOLOGY: ARE YOU DIABETIC? YES . OTHER: DO YOU NEED ANY PRESCRIPTIONS? YES . IF YES, PLEASE LIST: ____HYDROCODONE, LYRICA . ANY NEW PROBLEMS WITH YOUR MEDICATIONS? NO . WHEN DID YOU LAST EAT? ____ . WHEN DID YOU LAST DRINK? ____ . WHAT DID YOU LAST DRINK? ____ . NAME OF PERSON DRIVING YOU HOME? ____ . DO YOU HAVE ANY OTHER QUESTIONS OR CONCERNS NO . VITAL SIGNS WT 233.6 LBS, HT 66 IN, BMI 37.70 INDEX, BP 129/70 MM HG, HR 84 /MIN, RR 20 /MIN, TEMP 9.5 F, OXYGEN SAT % 98%, SAFE IN ENV? (Y/N) YES, REVIEWED BY: ANN. EXAMINATION GENERAL EXAMINATION: GENERALNO ACUTE DISTRESS, WELL NOURISHED AND HYDRATED. PSYCHAPPROPRIATE MOOD AND AFFECT . LUNGS:CLEAR TO AUSCULTATION BILATERALLY, NO WHEEZES, RHONCHI, RALES. HEART:NO MURMURS, REGULAR RATE AND RHYTHM. 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 GIVEN PRESENTING SYMPTOMS AND RESULTS OF PHYSICAL EXAMINATION RECOMMEND CONTINUATION OF CURRENT MEDICATION REGIMEN WITH FOLLOW-UP IN 3 MONTHS. PATIENT HAS EXPRESSED UNDERSTANDING OF AND WAS IN AGREEMENT WITH TREATMENT PLAN. GIVEN TIME TO ASK QUESTIONS AND EXPRESS CONCERNS., ISTOP REGISTRY REVIEWED AND DEMONSTRATES COMPLLIANCE. (REF # [id number] ) BRINGS IN MEDICATIONS WHICH IS APPROPRIATE FOR WHAT WAS DISPENSED. RECENT URINE TOXICOLOGY REVIEWED. NO UNAUTHORIZED MEDICATIONS. NO ILLICIT SUBSTANCES AND PRESCRIBED MEDICATIONS WERE PRESENT. PROCEDURE CODES FA211 ESTABILISHED PATIENT [facility] CHARGE DISPOSITION & COMMUNICATION FOLLOW UP 3 MONTHS (REASON: ABDOMINAL PAIN) ELECTRONICALLY SIGNED BY MOJGAN KENT ON 03/04/2019 AT 09:31 AM EST DISCLAIMER : THIS IS A VISIT SUMMARY EXTRACTED FROM THE [employer] CHART. IT IS NOT A COPY OF THE [employer] PROGRESS NOTE. ANIYAH
== END ==
LOC: M PAIN 11:00
PROVIDERS: ATTEND Family Medicine
DX: D36.15 Benign neoplasm of peripheral nerves and autonomic nervous system of abdomen (principal)

== ENCOUNTER 2019-04-24 21:04 | Emergency (ER) | payer OTHER ==
[~2019-04-24] VITALS: Ht 167.6 cm; Wt 100.0 kg
[~2019-04-24 21:04] MED LIST changes: +BENA40TA5 PO; -BENA40TA7 PO
[2019-04-24] MEDS ORDERED: NS 500 ML IV ONE (21:45)
[2019-04-24] MEDS ORDERED: METOPROLOL TART 25 MG TABLET PO ONE (21:45)
[2019-04-24] MEDS ORDERED: METF10004 PO (21:53)
[2019-04-24] MEDS ORDERED: TRUL10IN IM (21:53)
[2019-04-24] MEDS ORDERED: LANTINJ4 SC (21:53)
[2019-04-24] MEDS ORDERED: DULO1CAP6 PO (21:53)
[2019-04-24] MEDS ORDERED: AMLO5TAB6 PO (21:53)
[2019-04-24] MEDS ORDERED: ATOR1TAB19 PO (21:53)
[2019-04-24] MEDS ORDERED: PREG50CA PO (21:53)
[2019-04-24] MEDS ORDERED: LANTINJ4 SQ (21:53)
[2019-04-24 22:09] VITALS: BP 130/60
[2019-04-24 22:10] LABS: BASO # 0.1 10^3/uL (0.0-0.2); BASO % 0.7 % (0.0-1.0); EOS # 0.2 10^3/uL (0.0-0.5); EOS % 2.5 % (0.0-3.0); HEMATOCRIT 37.5 % (36.0-47.0); HEMOGLOBIN 11.8 g/dl (12.0-15.5); LYMPH # 2.7 10^3/uL (1.5-5.0); LYMPH % 33.5 % (24.0-44.0); MEAN CORPUSCULAR HGB CONC 31.5 g/dl (32.0-36.5); MEAN CORPUSCULAR VOLUME 82.6 fl (80.0-96.0); MONO # 0.7 10^3/uL (0.0-0.8); MONO % 8.6 % (0.0-5.0); NEUTROPHILS # 4.4 10^3/uL (1.5-8.5); NEUTROPHILS % 54.5 % (36.0-66.0); PLATELET COUNT, AUTOMATED 208 10^3/uL (150-450); RED BLOOD COUNT 4.54 10^6/uL (4.00-5.40); WHITE BLOOD COUNT 8.1 10^3/uL (4.0-10.0)
[2019-04-24 22:19] LABS: INR 0.94; PROTHROMBIN TIME 12.2 SECONDS (11.8-14.0)
[2019-04-24 22:20] LABS: PARTIAL THROMBOPLASTIN TIME 25.2 SECONDS (25.0-38.4)
[2019-04-24 22:29] LABS: ALBUMIN 3.6 GM/DL (3.2-5.2); ALT/SGPT 13 U/L (12-78); BILIRUBIN,DIRECT < 0.1 MG/DL (0.0-0.2); BILIRUBIN,TOTAL 0.3 MG/DL (0.2-1.0); BLOOD UREA NITROGEN 13 MG/DL (7-18); CARBON DIOXIDE LEVEL 27 MEQ/L (21-32); CHLORIDE LEVEL 101 MEQ/L (98-107); CK-MB VALUE MASS < 1.0 NG/ML (<3.6); CPK CREATINE PHOSPHOKINASE 48 U/L (26-192); CREATININE FOR GFR 0.91 MG/DL (0.55-1.30); GLOMERULAR FILTRATION RATE > 60.0 (>45); GLUCOSE, FASTING 196 MG/DL (70-100); LIPASE 104 U/L (73-393); MB/CK RELATIVE INDEX 2.08 (< OR =4); POTASSIUM SERUM 3.8 MEQ/L (3.5-5.1); SODIUM LEVEL 135 MEQ/L (136-145); TOTAL PROTEIN 7.2 GM/DL (6.4-8.2); TROPONIN I < 0.02 NG/ML (< 0.10)
[2019-04-24] MEDS ORDERED: ISOVUE-370 76% 100ML VIAL (Q9967) As Ordered ONE (22:43)
--- NOTE | 2019-04-24 23:26 | ECGEPIP ---
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
--- NOTE | 2019-04-24 23:39 | REPVR ---
PROCEDURE INFORMATION: Exam: CT Angiography Chest With Contrast Exam date and time: 04/24/2019 10:34 PM Age: 63 years old Clinical indication: Chest pain; Type not specified TECHNIQUE: Imaging protocol: Computed tomographic angiography of the chest with intravenous contrast. 3D rendering: MIP and/or 3D reconstructed images were created by the technologist. Radiation optimization: All CT scans at this facility use at least one of these dose optimization techniques: automated exposure control; mA and/or kV adjustment per patient size (includes targeted exams where dose is matched to clinical indication); or iterative reconstruction. Contrast material: ISO; Contrast volume: 100 ml; Contrast route: AC; COMPARISON: No relevant prior studies available. FINDINGS: Pulmonary arteries: No filling defects in the pulmonary arteries to suggest pulmonary emboli. Aorta: Unremarkable. No aortic aneurysm. No aortic dissection. Lungs: Subtle mild air trapping with ground-glass opacity, likely small vessel or small airways disease. No focal consolidation. Pleural space: Unremarkable. No pneumothorax. No pleural effusion. Heart: Unremarkable. No cardiomegaly. No pericardial effusion. Lymph nodes: Unremarkable. No enlarged lymph nodes. Bones/joints: Unremarkable. No acute fracture. Soft tissues: Unremarkable. IMPRESSION: No acute abnormality. Electronically signed by: Ashvin Bowling On 04/24/2019 23:38:04 PM
--- NOTE | 2019-04-24 23:41 | REPVR ---
PROCEDURE INFORMATION: Exam: CT Abdomen And Pelvis With Contrast Exam date and time: 04/24/2019 10:34 PM Age: 63 years old Clinical indication: Abdominal pain and other: Chest; Generalized TECHNIQUE: Imaging protocol: Computed tomography of the abdomen and pelvis with intravenous contrast. Radiation optimization: All CT scans at this facility use at least one of these dose optimization techniques: automated exposure control; mA and/or kV adjustment per patient size (includes targeted exams where dose is matched to clinical indication); or iterative reconstruction. Contrast material: ISO; Contrast volume: 100 ml; Contrast route: AC; COMPARISON: CT ABD PELVIS W/O FOL BY [facility] 2019-01-13 10:08 FINDINGS: Mediastinum: Small gastroesophageal sliding type hiatal hernia. Liver: Normal. No mass. Gallbladder and bile ducts: Normal. No calcified stones. No ductal dilation. Pancreas: Normal. No ductal dilation. Spleen: Normal. No splenomegaly. Adrenals: Normal. No mass. Kidneys and ureters: Normal. No hydronephrosis. Stomach and bowel: Adhesed bowel loops to the anterior abdominal wall. Previous abdominal incisions and scarring. Bowel anastomosis in the right upper abdomen. No bowel obstruction. Appendix: No evidence of appendicitis. Intraperitoneal space: Unremarkable. No free air. No significant fluid collection. Vasculature: Unremarkable. No abdominal aortic aneurysm. Lymph nodes: Unremarkable. No enlarged lymph nodes. Bladder: Bladder distension. Reproductive: Hysterectomy. Bones/joints: L1 chronic moderate compression fracture. Soft tissues: Unremarkable. IMPRESSION: No acute findings. Electronically signed by: Ashvin Bowling On 04/24/2019 23:40:45 PM
[2019-04-25 01:28] LABS: CK-MB VALUE MASS < 1.0 NG/ML (<3.6); CPK CREATINE PHOSPHOKINASE 106 U/L (26-192); MB/CK RELATIVE INDEX 0.94 (< OR =4); TROPONIN I < 0.02 NG/ML (< 0.10)
[2019-04-25 01:48] VITALS: BP 131/64
--- NOTE | 2019-04-26 07:15 | ECGEPIP ---
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
== END 2019-04-25 01:57 | disposition home or self-care (01) ==
LOC: M ED 21:04
DX: R07.89 Other chest pain (principal); R11.0 Nausea; I10 Essential (primary) hypertension; E11.9 Type 2 diabetes mellitus without complications; F33.9 Major depressive disorder, recurrent, unspecified; E66.9 Obesity, unspecified; Z79.899 Other long term (current) drug therapy; Z79.4 Long term (current) use of insulin
CPT/HCPCS: 36415; 71275; 74177; 80048; 80076; 82550; 82553; 83690; 84484; 85025; 85610; 85730; 93005; 99285; Q9967

== ENCOUNTER → 2019-04-30 | Outpatient (REF) | payer OTHER ==
[~2019-04-30] MED LIST changes: +AMLO5TAB6 PO; +ATOR1TAB19 PO; +DULO1CAP6 PO; +LANTINJ4 SC; +LANTINJ4 SQ; +METF10004 PO; +PREG50CA PO; +TRUL10IN IM
== END ==
LOC: M SFHCLERA 10:41
PROVIDERS: ATTEND Family Medicine
DX: R20.0 Anesthesia of skin (principal); D64.9 Anemia, unspecified; E11.9 Type 2 diabetes mellitus without complications

== ENCOUNTER → 2019-05-05 | Outpatient (CLI) | payer OTHER ==
[2019-05-05 13:33] LABS: BASO # 0.1 10^3/uL (0.0-0.2); BASO % 0.6 % (0.0-1.0); EOS # 0.2 10^3/uL (0.0-0.5); EOS % 2.1 % (0.0-3.0); HEMATOCRIT 38.4 % (36.0-47.0); HEMOGLOBIN 12.2 g/dl (12.0-15.5); LYMPH # 2.3 10^3/uL (1.5-5.0); LYMPH % 27.4 % (24.0-44.0); MEAN CORPUSCULAR HEMOGLOBIN 26.3 pg (27.0-33.0); MEAN CORPUSCULAR HGB CONC 31.8 g/dl (32.0-36.5); MEAN CORPUSCULAR VOLUME 82.8 fl (80.0-96.0); MONO # 0.5 10^3/uL (0.0-0.8); MONO % 6.2 % (0.0-5.0); NEUTROPHILS # 5.2 10^3/uL (1.5-8.5); NEUTROPHILS % 63.5 % (36.0-66.0); PLATELET COUNT, AUTOMATED 249 10^3/uL (150-450); RED BLOOD COUNT 4.64 10^6/uL (4.00-5.40); WHITE BLOOD COUNT 8.2 10^3/uL (4.0-10.0)
[2019-05-05 14:00] LABS: ALBUMIN 3.8 GM/DL (3.2-5.2); ALT/SGPT 17 U/L (12-78); BILIRUBIN,TOTAL 0.2 MG/DL (0.2-1.0); BLOOD UREA NITROGEN 10 MG/DL (7-18); CARBON DIOXIDE LEVEL 28 MEQ/L (21-32); CHLORIDE LEVEL 99 MEQ/L (98-107); CHOLESTEROL LEVEL 139 MG/DL (<200); CHOLESTEROL RISK RATIO 4.088 (<5); CREATININE FOR GFR 0.76 MG/DL (0.55-1.30); GLOMERULAR FILTRATION RATE > 60.0 (>45); GLUCOSE, FASTING 100 MG/DL (70-100); HDL CHOLESTEROL 34 MG/DL (>40); LDL CHOLESTEROL 27 MG/DL (<100); NON-HDL-C 105 MG/DL; POTASSIUM SERUM 3.8 MEQ/L (3.5-5.1); SODIUM LEVEL 135 MEQ/L (136-145); TOTAL PROTEIN 7.7 GM/DL (6.4-8.2); TRIGLYCERIDES LEVEL 392 MG/DL (<150)
[2019-05-05 14:01] LABS: FOLATE 15.8 NG/ML; VITAMIN B12 LEVEL 264 PG/ML
[2019-05-05 14:19] LABS: MALB URINE SIEMENS 14.7 MG/L; MAU/CREAT RATIO 8.4 MCG/MG (0.0-30.0)
[2019-05-05 14:43] LABS: HEMOGLOBIN A1c 6.6 %
== END ==
LOC: M LAB 12:07
PROVIDERS: ATTEND Family Medicine
DX: E11.9 Type 2 diabetes mellitus without complications (principal); D64.9 Anemia, unspecified; R20.0 Anesthesia of skin

== ENCOUNTER 2019-05-14 15:25 | Emergency (ER) | payer OTHER ==
[~2019-05-14] VITALS: Ht 167.6 cm; Wt 100.0 kg
[2019-05-14] MEDS ORDERED: NS 1,000 ML IV SCH (15:45)
[2019-05-14] MEDS ORDERED: PROMETHAZINE INJ 25 MG/ML VIAL (J2550) IV ONE (15:45)
[2019-05-14 16:47] LABS: BASO # 0.1 10^3/uL (0.0-0.2); BASO % 0.7 % (0.0-1.0); EOS # 0.1 10^3/uL (0.0-0.5); HEMATOCRIT 41.4 % (36.0-47.0); HEMOGLOBIN 13.2 g/dl (12.0-15.5); LYMPH # 1.9 10^3/uL (1.5-5.0); LYMPH % 23.7 % (24.0-44.0); MEAN CORPUSCULAR HEMOGLOBIN 26.4 pg (27.0-33.0); MEAN CORPUSCULAR HGB CONC 31.9 g/dl (32.0-36.5); MEAN CORPUSCULAR VOLUME 82.8 fl (80.0-96.0); MONO # 0.7 10^3/uL (0.0-0.8); MONO % 8.3 % (0.0-5.0); NEUTROPHILS # 5.3 10^3/uL (1.5-8.5); NEUTROPHILS % 66.1 % (36.0-66.0); PLATELET COUNT, AUTOMATED 230 10^3/uL (150-450); WHITE BLOOD COUNT 8.1 10^3/uL (4.0-10.0)
[2019-05-14 17:11] LABS: ALBUMIN 3.7 GM/DL (3.2-5.2); ALT/SGPT 15 U/L (12-78); BILIRUBIN,DIRECT 0.1 MG/DL (0.0-0.2); BILIRUBIN,TOTAL 0.4 MG/DL (0.2-1.0); BLOOD UREA NITROGEN 17 MG/DL (7-18); CALCIUM LEVEL 9.4 MG/DL (8.8-10.2); CARBON DIOXIDE LEVEL 30 MEQ/L (21-32); CHLORIDE LEVEL 96 MEQ/L (98-107); CREATININE FOR GFR 0.92 MG/DL (0.55-1.30); GLOMERULAR FILTRATION RATE > 60.0 (>45); GLUCOSE, FASTING 78 MG/DL (70-100); LIPASE 121 U/L (73-393); POTASSIUM SERUM 3.4 MEQ/L (3.5-5.1); SODIUM LEVEL 133 MEQ/L (136-145)
[2019-05-14] MEDS ORDERED: POTASSIUM CHLORIDE 10 MEQ SR TABLET PO ONE (17:30)
[2019-05-14 17:41] VITALS: BP 132/63
--- NOTE | 2019-05-14 17:42 | ECGEPIP ---
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
== END 2019-05-14 17:47 | disposition home or self-care (01) ==
LOC: EDBD 15:25 → M ED 15:25
DX: R10.9 Unspecified abdominal pain (principal); E11.9 Type 2 diabetes mellitus without complications; G89.29 Other chronic pain; Z79.4 Long term (current) use of insulin; Z79.899 Other long term (current) drug therapy; Z88.0 Allergy status to penicillin; Z88.1 Allergy status to other antibiotic agents; Z88.8 Allergy status to other drugs, medicaments and biological substances; Z88.5 Allergy status to narcotic agent; Z91.89 Other specified personal risk factors, not elsewhere classified

== ENCOUNTER → 2019-06-26 | Outpatient (CLI) | payer OTHER ==
--- NOTE | 2019-06-28 02:05 | ECWPNPC ---
PATIENT NAME: YUMI DOS SANTOS : 1955 GENDER: FEMALE VISIT DATE: 06/26/2019 DISCHARGE DATE: 06/26/19 1026 VISIT LOCKED DATE TIME: PHYSICIAN: HORTENSIA QUARLES RESOURCE: HORTENSIA QUARLES REASON FOR APPOINTMENT 1. ABD PAIN *NEEDS TO BE PHYS VISIT, PER CW* HISTORY OF PRESENT ILLNESS HISTORY OF PRESENT ILLNESS: PAIN THE PATIENT DESCRIBES THE PAIN... 63-YEAR-OLD FEMALE IN FOR CHRONIC PAIN FOLLOW-UP. SHE RATES HER PAIN CURRENTLY AT A 7 OUT OF 10 AND DESCRIBES IT SHARP, STABBING, AND ACHY. SHE FEELS HER MEDICATIONS ARE WORKING WELL AND DENIES MED SIDE EFFECTS AT THIS TIME. FALL RISK SCREENING: SCREENING :NO FALLS REPORTED IN THE LAST YEAR CURRENT MEDICATIONS TAKING GLUCOMETER E11.9. CHECK ACHS TAKING LASIX 40 MG TABLET 1 TABLET ORALLY ONCE A DAY TAKING PEN NEEDLES DIRECTED FOR BYDUREON BCISE E11.9 4 NEEDLES PER MONTH TAKING LANCETS - MISCELLANEOUS E11.9 CHECK ACHS TAKING BLOOD GLUCOSE TEST - STRIP CHECK ACHS E11.9. IN VITRO DIRECTED TAKING TYLENOL 325 MG TABLET 2 TABLETS ORALLY EVERY 4 HRS TAKING CYMBALTA 60 MG CAPSULE DELAYED RELEASE PARTICLES 1 CAPSULE WITH FOOD ORALLY BID TAKING LIPITOR 40 MG TABLET 1 TABLET ORALLY ONCE A DAY TAKING AMLODIPINE BESYLATE 5 MG TABLET 1 TABLET ORALLY ONCE A DAY TAKING BENAZEPRIL HCL 40 MG TABLET 1 TABLET ORALLY DAILY TAKING METFORMIN HCL 1000 MG TABLET 1 TABLET WITH A MEAL ORALLY BID TAKING LANTUS 100 UNIT/ML SOLUTION DIRECTED SUBCUTANEOUS 22UNITS IN AM, 30 UNTIS AT HS TAKING TRULICITY 0.75 MG/0.5ML SOLUTION PEN-INJECTOR 1 INJECTION SUBCUTANEOUS WEEKLY TAKING HYDROCODONE-ACETAMINOPHEN 5-325 MG TABLET 1 TABLET NEEDED ORALLY FOR PAIN EVERY 6 HRS MDD4 TAKING PREGABALIN 50 MG CAPSULE 1 CAPSULE ORALLY THREE TIMES DAILY, NOTES: DO NOT FILL UNTIL 01/04/19 NOT-TAKING MAY USE CINAMON/OTC 1000 MG. 2 CAPLETS ORALLY DAILY NOT-TAKING AMLODIPINE BESYLATE , NOTES: DUPLICATE NOT-TAKING MACROBID 100 MG CAPSULE 1 CAPSULE WITH FOOD ORALLY EVERY 12 HRS NOT-TAKING PERCOCET 5-325 MG TABLET 1 TABLET NEEDED ORALLY Q8H PRN MDD3 NOT-TAKING CLINDAMYCIN HCL 150 MG CAPSULE 1 CAPSULE ORALLY FOUR TIMES DAILY NOT-TAKING CLINDAMYCIN HCL 150 MG CAPSULE 1 CAPSULE ORALLY TID NOT-TAKING TRAMADOL HCL 50 MG TABLET 1 TAB ORALLY EVERY 6 HOURS NEEDED/MMD#4 MEDICATION LIST REVIEWED AND RECONCILED WITH THE PATIENT PAST MEDICAL HISTORY OBESITY DEPRESSION: PROZAC AND CYMBALTA; SHE HAD IN HIGH SCHOOL SUICIDE ATTEMPT WITH SWALLOWING PILLS, HAS FOUND COUNSELING HELPFUL IN THE PAST. SARCOIDOSIS: A CHILD WAS DIAGNOSED WITH A BIOPSY, HAS NEVER SEEN A DOCTOR FOR THIS SINCE CHILDHOOD. DIABETES MELLITUS, TYPE 2, GOAL A1C 7% HYPERTENSION, GOAL 140/90 HEART DISEASE: "I HAVE UPSIDE DOWN T-WAVES, FATHER AT AGE 68 FROM IT AND I HAVE HYPERTENSION" OSTEOARTHRITIS: "ALL OVER" CHRONIC PAIN, ABDOMINAL FRACTURED VERTEBRAE ALLERGIES TERRAMYCIN: HIVES/WATER BLISTERS - ALLERGY PENICILLIN (FOR ALLERGIES USE ONLY): HIVES/WATER BLISTERS - ALLERGY ASPIRIN: RASH/WATER BLISTERS - ALLERGY TEGRETOL: HIVES/WATER BLISTERS - ALLERGY BENADRYL: HIVES/WATER BLISTERS - ALLERGY MORPHINE SULFATE: HIVES/WATER BLISTERS - ALLERGY SURGICAL HISTORY ABDOMINAL/ MULTIPLE HERNIA REPAIRS WITH MESH RESULTING IN INFECTION LAST SURGERY 2012 CYST REMOVAL/ LEFT BREAST APPENDECTOMY HYSTERECTOMY ANKLE SURGERY/BOTH ANKLES CERVICAL FUSION 1987 BENIGN LUMPS REMOVED LEFT ARM 2016 SPINAL CORD STIMULATOR TRIAL 11/2017 FAMILY HISTORY FATHER: 68 YRS, DIAGNOSED WITH UNSPECIFIED HEART DISEASE MOTHER: 68 YRS, UNSPECIFIED HEART DISEASE SOCIAL HISTORY GENERAL: TOBACCO USE ARE YOU A: NONSMOKER , ARE YOU A: NONSMOKER. LATEX QUESTIONNAIRE LATEX ALLERGY : HAVE YOU EVER DEVELOPED ANY TYPE OF REACTION AFTER HANDLING LATEX PRODUCTS SUCH RUBBER GLOVES, CONDOMS, DIAPHRAGMS, BALLOONS, SOCKS, OR UNDERWEAR?NO LATEX ALLERGY : HAVE YOU EVER DEVELOPED ANY TYPE OF REACTION DURING OR AFTER DENTAL APPOINTMENT, VAGINAL/RECTAL EXAMINATION, SURGICAL PROCEDURE, OR ANY OTHER EXPOSURE?NO DATE ASKED : 05/27/2018 LATEX RISK : HAVE YOU EVER HAD ANY DIFFICULTY BREATHING OR HIVES AFTER EATING OR HANDLING ANY FRUITS, OR VEGETABLES; SUCH KIWI, BANANAS, STONE FRUITS, OR CHESTNUTSNO LATEX RISK : DO YOU HAVE A PREVIOUS PERSONAL HISTORY OF MORE THAN NINE SURGERIES, SPINA BIFIDA, OR REPEATED CATHERIZATIONS? YES - PLEASE INDICATE : > 9 SURGERIES LATEX RISK : ARE YOU FREQUENTLY EXPOSED TO LATEX PRODUCTS IN YOUR OCCUPATION?NO ALCOHOL SCREENING DID YOU HAVE A DRINK CONTAINING ALCOHOL IN THE PAST YEAR?NO POINTS0 INTERPRETATIONNEGATIVE RECREATIONAL DRUG USE DRUG USE? NO , PATIENT DENIES ABUSE OR MISSUSED OF ANY MEDICATION . , PATIENT DENIES USE OF ANY ILLEGAL SUBSTANCE INCLUDING MARIJUANA OR COCAINE .. CAFFEINE CAFFEINE USE? NO. SEXUAL HX HAD SEX IN THE LAST 12 MONTHS (VAGINAL, ORAL, OR ANAL)?YES WITHMEN ONLY USE PROTECTION?NO HAVE YOU EVER HAD AN STD?NO HIV / HEP-C SCREENING HIV TEST OFFERED TO PATIENT:YES DATE OFFERED:11/01/2018 TEST ACCEPTED:NO HEP-C TEST OFFERED TO PATIENT:YES DATE OFFERED:11/01/2018 REASON:PATIENT DECLINED TEST ACCEPTED:NO REASON:PATIENT DECLINED BROCHURE PROVIDED TO PATIENTNO MANDAEN MANDAEN NO SABIANISM BELIEFS THAT WOULD IMPACT HEALTH CARE. 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 EXERCISE: WALKS, SWIMS. MARITAL STATUS: . OTHERS AT HOME: SPOUSE. NEW PATIENT PAIN DIARY TODAY'S VISIT 06/26/19 PATIENT DESCRIBES PAIN :ACHING, BURNING, HAVE IT ALL THE TIME, SHARP, STABBING, THROBBING, SORE, SHOOTING FROM 0-10, WHAT LEVEL IS YOUR PAIN TODAY?7 PRECIPITATING FACTORS NOTHING ALLEVIATING FACTORS NOTHING IMPACT ON FUNCTION SOMETIMES PAIN CLINIC PFS, CLERGY, PUBLIC HEALTH REFERRALS PFS REFERRAL NEEDED?NO CLERGY REFERRAL NEEDED?NO PUBLIC HEALTH REFERRAL NEEDED?NO WAS THE PROVIDER NOTIFIED OF ANY PERTINENT INFO?NO HAS THE PATIENT BEEN EDUCATED REGARDING HIS/HER PLAN OF CARE?YES HAS THE PATIENT BEEN EDUCATED REGARDING PAIN, THE RISK FOR PAIN, THE IMPORTANCE OF EFFECTIVE PAIN MANAGEMENT, AND THE PAIN ASSESSMENT PROCESS?YES HOUSING: OWNS HOME. ADVANCE DIRECTIVE ADVANCE DIRECTIVE DISCUSSED WITH PATIENT:YES HCP - JESSICA SOJAVIER () & NINA HUFF REVIEWED WITH PT 11/21/17 1529 BVREVIEWED WITH PATIENT 05/27/18 1337 JSREVIEWED WITH PT 09/17/18 1134 BVREVIEWED WITH PATIENT 03/03/2019 LAS. HOSPITALIZATION/MAJOR DIAGNOSTIC PROCEDURE SURGERY RELATED REVIEW OF SYSTEMS REVIEWED BY: PROVIDER: DONNELL QUARLES DIRECTOR OF ESTATE-C . CONSTITUTIONAL: ANY CHANGE IN YOUR MEDICAL CONDITION? NO . CHILLS NO . FEVER NO . INFECTION: DO YOU HAVE NEW INFECTIONS? NO . DO YOU HAVE HISTORY OF MRSA? NO . MUSCULOSKELETAL: ANY NEW PATTERNS OF PAIN OR NUMBNESS? NO . GASTROENTEROLOGY: ANY NEW CHANGE IN BOWEL CONTROL? YES, DIARRHEA X 2 DAYS, RESOLVED . GENITOURINARY: ANY NEW CHANGE IN BLADDER CONTROL? NO . IS THERE A CHANCE YOU COULD BE ? NO . HEMATOLOGY/LYMPH: DO YOU TAKE ANY BLOOD THINNERS? (FOR EXAMPLE- COUMADIN, PLAVIX, AGGRENOX, PLATEL, PRADAXA, OR XARELTO) NO . WHEN WAS YOUR LAST DOSE? DATE: TIME: . NEUROLOGY: HAVE YOU FALLEN IN THE PAST 12 MONTHS? NO . ANY NEW EXTREMITY NUMBNESS OR WEAKNESS? NO . CARDIOLOGY: DO YOU HAVE A PACEMAKER OR DEFIBRILLATOR? NO . RESPIRATORY: HAVE YOU BEEN SICK IN THE PAST WEEK? NO . FEVER NO . FLU LIKE SYMPTOMS? NO . COUGH NO . INTEGUMENTARY: DO YOU HAVE ANY RASHES OR OPEN SORES? YES, SORE TO RIGHTPOSTERIOR SHOULDER X 2 WEEKS, PCP AWARE, TOLD PT TO KEEP COVERED . ALLERGIC/IMMUNO: ARE YOU ALLERGIC TO IV DYE? NO . ANY NEW ALLERGIES? NO . PSYCHIATRIC: DO YOU HAVE THOUGHTS OF HURTING YOURSELF OR SOMEONE ELSE? NO . ARE YOU ABUSED, NEGLECTED, OR IN AN UNSAFE ENVIRONMENT? NO . ENDOCRINOLOGY: ARE YOU DIABETIC? YES . OTHER: DO YOU NEED ANY PRESCRIPTIONS? NO . IF YES, PLEASE LIST: ____ . ANY NEW PROBLEMS WITH YOUR MEDICATIONS? NO . WHEN DID YOU LAST EAT? ____ . WHEN DID YOU LAST DRINK? ____ . WHAT DID YOU LAST DRINK? ____ . NAME OF PERSON DRIVING YOU HOME? ____ . DO YOU HAVE ANY OTHER QUESTIONS OR CONCERNS NO . VITAL SIGNS WT 230 LBS, HT 66 IN, BMI 37.12 INDEX, BP 164/63 MM HG, HR 96 /MIN, RR 18 /MIN, TEMP 97.0 F, OXYGEN SAT % 97%, NA INITIALS AW 0945. EXAMINATION GENERAL EXAMINATION: GENERALNO ACUTE DISTRESS, WELL NOURISHED AND HYDRATED. PSYCHAPPROPRIATE MOOD AND AFFECT . LUNGS:CLEAR TO AUSCULTATION BILATERALLY, NO WHEEZES, RHONCHI, RALES. HEART:NO MURMURS, REGULAR RATE AND RHYTHM. ASSESSMENTS UNSPECIFIED ABDOMINAL PAIN - R10.9 (PRIMARY) TREATMENT UNSPECIFIED ABDOMINAL PAIN CLINICAL NOTES: 63-YEAR-OLD FEMALE IN FOR CHRONIC PAIN FOLLOW-UP. GIVEN PRESENTING SYMPTOMS AND RESULTS OF PHYSICAL EXAMINATION RECOMMENDED CONTINUATION OF CURRENT MEDICATION REGIMEN WITH FOLLOW-UP IN 3 MONTHS. PATIENT HAS EXPRESSED UNDERSTANDING OF AND WAS IN AGREEMENT WITH TREATMENT PLAN. GIVEN TIME TO ASK QUESTIONS AND EXPRESS CONCERNS. , ISTOP REGISTRY REVIEWED AND DEMONSTRATES COMPLLIANCE. (REF # [id number] ) BRINGS IN MEDICATIONS WHICH IS APPROPRIATE FOR WHAT WAS DISPENSED. RECENT URINE TOXICOLOGY REVIEWED. NO UNAUTHORIZED MEDICATIONS. NO ILLICIT SUBSTANCES AND PRESCRIBED MEDICATIONS WERE PRESENT. PROCEDURE CODES FA211 ESTABILISHED PATIENT [facility] CHARGE DISPOSITION & COMMUNICATION FOLLOW UP 3 MONTHS (REASON: ABDOMINAL PAIN) ELECTRONICALLY SIGNED BY MOJGAN KENT ON 06/27/2019 AT 09:08 AM EDT DISCLAIMER : THIS IS A VISIT SUMMARY EXTRACTED FROM THE [employer] CHART. IT IS NOT A COPY OF THE [employer] PROGRESS NOTE. ANIYAH
== END ==
LOC: M PAIN 10:00
PROVIDERS: ATTEND Family Medicine
DX: R10.9 Unspecified abdominal pain (principal); G89.29 Other chronic pain; Z86.59 Personal history of other mental and behavioral disorders; E11.9 Type 2 diabetes mellitus without complications; I10 Essential (primary) hypertension; Z88.0 Allergy status to penicillin; Z88.1 Allergy status to other antibiotic agents; Z88.5 Allergy status to narcotic agent; Z88.6 Allergy status to analgesic agent; Z88.8 Allergy status to other drugs, medicaments and biological substances; Z79.4 Long term (current) use of insulin; Z79.899 Other long term (current) drug therapy

== ENCOUNTER → 2019-08-12 | Outpatient (REF) | payer OTHER ==
[~2019-08-12] MED LIST changes: +AMLO1TAB24 PO; -AMLO5TAB6 PO; -FLUO10CA15 PO; +FLUO10CA16 PO; +HYDR-3490 PO; +HYDR-3713 PO; -HYDR25TAB PO
[2019-08-12 11:33] LABS: BASO # 0.1 10^3/uL (0.0-0.2); EOS # 0.3 10^3/uL (0.0-0.5); HEMATOCRIT 39.9 % (36.0-47.0); HEMOGLOBIN 12.5 g/dl (12.0-15.5); LYMPH # 2.1 10^3/uL (1.5-5.0); LYMPH % 23.2 % (24.0-44.0); MEAN CORPUSCULAR HGB CONC 31.3 g/dl (32.0-36.5); MEAN CORPUSCULAR VOLUME 83.1 fl (80.0-96.0); MONO # 0.6 10^3/uL (0.0-0.8); MONO % 6.4 % (0.0-5.0); NEUTROPHILS % 66.2 % (36.0-66.0); PLATELET COUNT, AUTOMATED 237 10^3/uL (150-450); WHITE BLOOD COUNT 9.1 10^3/uL (4.0-10.0)
[2019-08-12 11:38] LABS: MONO SCRN NEGATIVE (NEGATIVE)
[2019-08-12 12:52] LABS: ALBUMIN 3.8 GM/DL (3.2-5.2); ALT/SGPT 20 U/L (12-78); BILIRUBIN,TOTAL 0.5 MG/DL (0.2-1.0); BLOOD UREA NITROGEN 11 MG/DL (7-18); CALCIUM LEVEL 9.1 MG/DL (8.8-10.2); CARBON DIOXIDE LEVEL 24 MEQ/L (21-32); CHLORIDE LEVEL 102 MEQ/L (98-107); CREATININE FOR GFR 0.71 MG/DL (0.55-1.30); GLOMERULAR FILTRATION RATE > 60.0 (>45); GLUCOSE, FASTING 133 MG/DL (70-100); SODIUM LEVEL 137 MEQ/L (136-145); TOTAL PROTEIN 7.7 GM/DL (6.4-8.2)
[2019-08-12 14:19] LABS: HEMOGLOBIN A1c 7.2 %
== END ==
LOC: M SFHCLERA 09:14
PROVIDERS: ATTEND Family Medicine
DX: E11.9 Type 2 diabetes mellitus without complications (principal); R10.30 Lower abdominal pain, unspecified; R59.0 Localized enlarged lymph nodes

== ENCOUNTER → 2019-08-26 | Outpatient (CLI) | payer OTHER ==
[~2019-08-26] MED LIST changes: -AMLO1TAB24 PO; +AMLO5TAB6 PO; +FLUO10CA15 PO; -FLUO10CA16 PO; -HYDR-3490 PO; -HYDR-3713 PO; +HYDR25TAB PO
[2019-08-26 11:56] LABS: GLOMERULAR FILTRATION RATE > 60.0 (>45)
== END ==
LOC: M LAB 10:40
PROVIDERS: ATTEND Surgery
DX: R10.84 Generalized abdominal pain (principal)

== ENCOUNTER → 2019-11-06 | Outpatient (CLI) | payer OTHER ==
[~2019-11-06] MED LIST changes: +AMLO1TAB24 PO; -AMLO5TAB6 PO; -FLUO10CA15 PO; +FLUO10CA16 PO; +HYDR-3713 PO
[2019-11-06 10:36] LABS: HEMOGLOBIN 11.6 g/dl (12.0-15.5); MEAN CORPUSCULAR HEMOGLOBIN 24.8 pg (27.0-33.0); MEAN CORPUSCULAR HGB CONC 30.5 g/dl (32.0-36.5); MEAN CORPUSCULAR VOLUME 81.4 fl (80.0-96.0); PLATELET COUNT, AUTOMATED 255 10^3/uL (150-450); RED BLOOD COUNT 4.67 10^6/uL (4.00-5.40); WHITE BLOOD COUNT 7.5 10^3/uL (4.0-10.0)
[2019-11-06 10:55] LABS: BLOOD UREA NITROGEN 10 MG/DL (7-18); CREATININE FOR GFR 0.61 MG/DL (0.55-1.30); GLOMERULAR FILTRATION RATE > 60.0 (>45)
== END ==
LOC: M LAB 09:19
PROVIDERS: ATTEND Nurse Practitioner Acute Care
DX: R10.84 Generalized abdominal pain (principal)

== ENCOUNTER → 2019-12-15 | Outpatient (CLI) | payer OTHER ==
--- NOTE | 2019-12-16 16:27 | ECWPNPC ---
PATIENT NAME: YUMI DOS SANTOS : 1955 GENDER: FEMALE VISIT DATE: 12/15/2019 DISCHARGE DATE: 12/15/19 1449 VISIT LOCKED DATE TIME: PHYSICIAN: HORTENSIA QUARLES PHYSICIAN PAGER NO: ACTIVE RESOURCE: HORTENSIA QUARLES REASON FOR APPOINTMENT 1. ABDOMINAL PAIN HISTORY OF PRESENT ILLNESS GENERAL: 64-YEAR-OLD FEMALE IN FOR CHRONIC PAIN FOLLOW-UP. SHE RATES HER PAIN CURRENTLY AT AN 8 OUT OF 10 AND DESCRIBES IT SHARP AND STABBING. SHE FEELS HER MEDICATIONS ARE HELPFUL AND DENIES MED SIDE EFFECTS AT THIS TIME. -. FALL RISK SCREENING: SCREENING :NO FALLS REPORTED IN THE LAST YEAR PAIN SCREENING: PATIENT HAS A COMPLAINT OF ACUTE OR CHRONIC PAIN :YES LOCATION OF PAIN:ABDOMEN INTENSITY OF PAIN (SCALE OF 1 TO 10):8 WHAT DOES YOUR PAIN FEEL LIKE:SHARP, STABBING DURATION:CONSTANT, AWAKENS FROM SLEEP PAIN IS INCREASED BY:ACTIVITIES PAIN IS DECREASED BY:USE OF PAIN MEDICATIONS NURSING NOTE: -. PAIN CENTER INTAKE QUESTIONS: DO YOU HAVE A HISTORY OF MRSA? :YES DO YOU TAKE A BLOOD THINNERS? :NO DO YOU HAVE ANY BLEEDING DISORDERS? :NO ANY NEW NUMBNESS OR WEAKNESS IN YOUR LEGS OR ARMS? :NO ANY PACEMAKER,DEFIBRILLATOR, OR DORSAL COLUMN STIMULATOR? :NO DO YOU HAVE ANY RASHES OR OPEN SORES? :YES OPEN WOUND ON ABDOMEN FROM SURGERY August ARE YOU ALLERGIC TO IV DYE? :NO ARE YOU DIABETIC? :YES ANY NEW PROBLEMS WITH YOUR MEDICATIONS? :NO HAVE YOU RECEIVED A VACCINE IN THE PAST 30 DAYS? :YES PATIENT RECIEVED A FLU SHOT 2 WEEKS AGO. DO YOU PLAN TO RECEIVE A VACCINE IN THE NEXT 21 DAYS? :NO DO YOU NEED ANY PRESCRIPTION? :YES HYDROCODONE AND LYRICA DO YOU TAKE ANY IMMUNOSUPPRESSIVE MEDICATIONS? :NO IS THERE A CHANCE YOU COULD BE ? :NO ARE YOU BREAST FEEDING? :NO CURRENT MEDICATIONS TAKING GLUCOMETER E11.9. CHECK ACHS TAKING PEN NEEDLES DIRECTED FOR BYDUREON BCISE E11.9 4 NEEDLES PER MONTH TAKING LANCETS - MISCELLANEOUS E11.9 CHECK ACHS TAKING BLOOD GLUCOSE TEST - STRIP CHECK ACHS E11.9. IN VITRO DIRECTED TAKING TRULICITY 0.75 MG/0.5ML SOLUTION PEN-INJECTOR 1 INJECTION SUBCUTANEOUS WEEKLY TAKING AMLODIPINE BESYLATE 5 MG TABLET 1 TABLET ORALLY ONCE A DAY TAKING METFORMIN HCL 1000 MG TABLET 1 TABLET WITH A MEAL ORALLY BID TAKING LANTUS 100 UNIT/ML SOLUTION DIRECTED SUBCUTANEOUS 22UNITS IN AM, 40 UNTIS AT HS TAKING BENAZEPRIL HCL 40 MG TABLET 1 TABLET ORALLY DAILY TAKING LASIX 40 MG TABLET 1 TABLET ORALLY ONCE A DAY TAKING LIPITOR 40 MG TABLET 1 TABLET ORALLY ONCE A DAY TAKING CYMBALTA 60 MG CAPSULE DELAYED RELEASE PARTICLES 1 CAPSULE WITH FOOD ORALLY BID TAKING HYDROCODONE-ACETAMINOPHEN 5-325 MG TABLET 1 TABLET NEEDED ORALLY FOR PAIN EVERY 6 HRS MDD4 TAKING PREGABALIN 50 MG CAPSULE 1 CAPSULE ORALLY THREE TIMES DAILY NOT-TAKING TRULICITY 1.5 MG/0.5ML SOLUTION PEN-INJECTOR DIRECTED SUBCUTANEOUS WEEKLY NOT-TAKING BACTRIM DS 800-160 MG TABLET 1 TABLET ORALLY TWICE A DAY NOT-TAKING TYLENOL 325 MG TABLET 2 TABLETS ORALLY EVERY 4 HRS MEDICATION LIST REVIEWED AND RECONCILED WITH THE PATIENT PAST MEDICAL HISTORY OBESITY DEPRESSION: SHE HAD IN HIGH SCHOOL SUICIDE ATTEMPT WITH SWALLOWING PILLS, HAS FOUND COUNSELING HELPFUL IN THE PAST. SARCOIDOSIS: A CHILD WAS DIAGNOSED WITH A BIOPSY, HAS NEVER SEEN A DOCTOR FOR THIS SINCE CHILDHOOD. DIABETES MELLITUS, TYPE 2, GOAL A1C 7% HYPERTENSION, GOAL 140/90 HEART DISEASE: "I HAVE UPSIDE DOWN T-WAVES, FATHER AT AGE 68 FROM IT AND I HAVE HYPERTENSION" OSTEOARTHRITIS: "ALL OVER" CHRONIC PAIN, ABDOMINAL FRACTURED VERTEBRAE ALLERGIES TERRAMYCIN: HIVES/WATER BLISTERS - ALLERGY PENICILLIN (FOR ALLERGIES USE ONLY): HIVES/WATER BLISTERS - ALLERGY ASPIRIN: RASH/WATER BLISTERS - ALLERGY TEGRETOL: HIVES/WATER BLISTERS - ALLERGY BENADRYL: HIVES/WATER BLISTERS - ALLERGY MORPHINE SULFATE: HIVES/WATER BLISTERS - ALLERGY SURGICAL HISTORY ABDOMINAL/ MULTIPLE HERNIA REPAIRS WITH MESH RESULTING IN INFECTION LAST SURGERY 2012 CYST REMOVAL/ LEFT BREAST APPENDECTOMY HYSTERECTOMY ANKLE SURGERY/BOTH ANKLES CERVICAL FUSION 1987 BENIGN LUMPS REMOVED LEFT ARM 2016 SPINAL CORD STIMULATOR TRIAL 11/2017 ADHESIONS TOOK MESS OUT 09/24/2019 FAMILY HISTORY FATHER: 68 YRS, DIAGNOSED WITH UNSPECIFIED HEART DISEASE MOTHER: 68 YRS, UNSPECIFIED HEART DISEASE SOCIAL HISTORY GENERAL: TOBACCO USE ARE YOU A:NONSMOKER LATEX QUESTIONNAIRE LATEX ALLERGY : HAVE YOU EVER DEVELOPED ANY TYPE OF REACTION AFTER HANDLING LATEX PRODUCTS SUCH RUBBER GLOVES, CONDOMS, DIAPHRAGMS, BALLOONS, SOCKS, OR UNDERWEAR?NO LATEX ALLERGY : HAVE YOU EVER DEVELOPED ANY TYPE OF REACTION DURING OR AFTER DENTAL APPOINTMENT, VAGINAL/RECTAL EXAMINATION, SURGICAL PROCEDURE, OR ANY OTHER EXPOSURE?NO LATEX RISK : HAVE YOU EVER HAD ANY DIFFICULTY BREATHING OR HIVES AFTER EATING OR HANDLING ANY FRUITS, OR VEGETABLES; SUCH KIWI, BANANAS, STONE FRUITS, OR CHESTNUTSNO LATEX RISK : DO YOU HAVE A PREVIOUS PERSONAL HISTORY OF MORE THAN NINE SURGERIES, SPINA BIFIDA, OR REPEATED CATHERIZATIONS? YES - PLEASE INDICATE : > 9 SURGERIES LATEX RISK : ARE YOU FREQUENTLY EXPOSED TO LATEX PRODUCTS IN YOUR OCCUPATION?NO DATE ASKED : 12/15/2019 ALCOHOL SCREENING DID YOU HAVE A DRINK CONTAINING ALCOHOL IN THE PAST YEAR?NO POINTS0 INTERPRETATIONNEGATIVE RECREATIONAL DRUG USE DRUG USE? NO , PATIENT DENIES ABUSE OR MISSUSED OF ANY MEDICATION . , PATIENT DENIES USE OF ANY ILLEGAL SUBSTANCE INCLUDING MARIJUANA OR COCAINE .. CAFFEINE CAFFEINE USE? NO. SEXUAL HX HAD SEX IN THE LAST 12 MONTHS (VAGINAL, ORAL, OR ANAL)?YES WITHMEN ONLY USE PROTECTION?NO HAVE YOU EVER HAD AN STD?NO HIV / HEP-C SCREENING HIV TEST OFFERED TO PATIENT:YES DATE OFFERED:11/01/2018 TEST ACCEPTED:NO HEP-C TEST OFFERED TO PATIENT:YES DATE OFFERED:11/01/2018 REASON:PATIENT DECLINED TEST ACCEPTED:NO REASON:PATIENT DECLINED BROCHURE PROVIDED TO PATIENTNO MORAVIAN MORAVIAN NO SCIENTOLOGIST BELIEFS THAT WOULD IMPACT HEALTH CARE. 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 EXERCISE: WALKS, SWIMS. MARITAL STATUS: . OTHERS AT HOME: SPOUSE. NEW PATIENT PAIN DIARY TODAY'S VISIT 06/26/19 PATIENT DESCRIBES PAIN :ACHING, BURNING, HAVE IT ALL THE TIME, SHARP, STABBING, THROBBING, SORE, SHOOTING FROM 0-10, WHAT LEVEL IS YOUR PAIN TODAY?7 PRECIPITATING FACTORS NOTHING ALLEVIATING FACTORS NOTHING IMPACT ON FUNCTION SOMETIMES PAIN CLINIC PFS, CLERGY, PUBLIC HEALTH REFERRALS PFS REFERRAL NEEDED?NO CLERGY REFERRAL NEEDED?NO PUBLIC HEALTH REFERRAL NEEDED?NO WAS THE PROVIDER NOTIFIED OF ANY PERTINENT INFO?NO HAS THE PATIENT BEEN EDUCATED REGARDING HIS/HER PLAN OF CARE?YES HAS THE PATIENT BEEN EDUCATED REGARDING PAIN, THE RISK FOR PAIN, THE IMPORTANCE OF EFFECTIVE PAIN MANAGEMENT, AND THE PAIN ASSESSMENT PROCESS?YES HOUSING: OWNS HOME. ADVANCE DIRECTIVE ADVANCE DIRECTIVE DISCUSSED WITH PATIENT:YES HCP - JESSICA DOS SANTOS () & NINASTUART HUFF REVIEWED WITH PT 11/21/17 1529 BVREVIEWED WITH PATIENT 05/27/18 1337 JSREVIEWED WITH PT 09/17/18 1134 BVREVIEWED WITH PATIENT 03/03/2019 LAS. HOSPITALIZATION/MAJOR DIAGNOSTIC PROCEDURE SURGERY RELATED REVIEW OF SYSTEMS CONSTITUTIONAL: ANY RECENT FEVER NO . CHILLS NO . WEIGHT CHANGE OF UNKNOWN REASONS NO . GASTROENTEROLOGY: NEW UNEXPLAINABLE CHANGES IN BOWEL CONTROL NO . CONSTIPATION NO . GENITOURINARY: ANY NEW CHANGE IN BLADDER CONTROL? NO . NEUROLOGY: NEW ONSET DIZZINESS OR NEUROLOGICAL CHANGES NOT MENTIONED NO . NEW NUMBNESS OR PAIN PATTERNS NOT MENTIONED AND PERTINENT TO TODAY'S VISIT NO . CARDIOLOGY: NEW CHEST PRESSURE NO . NEW CHEST PAIN NO . RESPIRATORY: UNEXPLAINABLE COUGH NO . NEW SHORTNESS OF BREATH NO . VITAL SIGNS WT 227.6 LBS, HT 66 IN, BMI 36.73 INDEX, BP 132/68 MM HG, HR 86 /MIN, RR 18 /MIN, TEMP 97.5 F, OXYGEN SAT % 100%, SAFE IN ENV? (Y/N) YES, NA INITIALS AW 1415, REVIEWED BY: DM. EXAMINATION GENERAL EXAMINATION: GENERALNO ACUTE DISTRESS, WELL NOURISHED AND HYDRATED. PSYCHAPPROPRIATE MOOD AND AFFECT . LUNGS:CLEAR TO AUSCULTATION BILATERALLY, NO WHEEZES, RHONCHI, RALES. HEART:NO MURMURS, REGULAR RATE AND RHYTHM. ASSESSMENTS LOWER ABDOMINAL PAIN - R10.30 (PRIMARY) TREATMENT LOWER ABDOMINAL PAIN CLINICAL NOTES: 64-YEAR-OLD FEMALE IN FOR CHRONIC PAIN FOLLOW-UP. GIVEN PRESENTING SYMPTOMS RECOMMEND CONTINUATION OF CURRENT MEDICATION REGIMEN WITH FOLLOW-UP IN 3 MONTHS. PATIENT HAS EXPRESSED UNDERSTANDING OF AND WAS IN AGREEMENT WITH TREATMENT PLAN. GIVEN TIME TO ASK QUESTIONS AND EXPRESS CONCERNS. , ISTOP REGISTRY REVIEWED AND DEMONSTRATES COMPLLIANCE. (REF # [id number] ) BRINGS IN MEDICATIONS WHICH IS APPROPRIATE FOR WHAT WAS DISPENSED. RECENT URINE TOXICOLOGY REVIEWED. NO UNAUTHORIZED MEDICATIONS. NO ILLICIT SUBSTANCES AND PRESCRIBED MEDICATIONS WERE PRESENT. PROCEDURE CODES FA211 ESTABILISHED PATIENT [facility] CHARGE DISPOSITION & COMMUNICATION FOLLOW UP 3 MONTHS (REASON: ABDOMINAL PAIN) ELECTRONICALLY SIGNED BY MOJGAN KENT ON 12/16/2019 AT 03:15 PM EDT DISCLAIMER : THIS IS A VISIT SUMMARY EXTRACTED FROM THE [employer] CHART. IT IS NOT A COPY OF THE [employer] PROGRESS NOTE. ANIYAH
== END ==
LOC: M PAIN 14:00
PROVIDERS: ATTEND Family Medicine
DX: R10.30 Lower abdominal pain, unspecified (principal); E66.9 Obesity, unspecified; F32.9 Major depressive disorder, single episode, unspecified; E11.9 Type 2 diabetes mellitus without complications; I10 Essential (primary) hypertension; Z79.4 Long term (current) use of insulin; Z79.891 Long term (current) use of opiate analgesic; Z79.899 Other long term (current) drug therapy; Z88.0 Allergy status to penicillin; Z88.5 Allergy status to narcotic agent; Z88.8 Allergy status to other drugs, medicaments and biological substances; Z88.6 Allergy status to analgesic agent; Z68.36 Body mass index [BMI] 36.0-36.9, adult

== ENCOUNTER → 2020-01-06 | Outpatient (CLI) | payer OTHER ==
[2020-01-06 10:41] LABS: BASO # 0.1 10^3/uL (0.0-0.2); BASO % 1.1 % (0.0-1.0); EOS # 0.2 10^3/uL (0.0-0.5); EOS % 3.6 % (0.0-3.0); HEMATOCRIT 39.7 % (36.0-47.0); HEMOGLOBIN 12.1 g/dl (12.0-15.5); LYMPH # 1.7 10^3/uL (1.5-5.0); LYMPH % 25.6 % (24.0-44.0); MEAN CORPUSCULAR HEMOGLOBIN 24.1 pg (27.0-33.0); MEAN CORPUSCULAR HGB CONC 30.5 g/dl (32.0-36.5); MEAN CORPUSCULAR VOLUME 79.1 fl (80.0-96.0); MONO # 0.6 10^3/uL (0.0-0.8); MONO % 8.4 % (0.0-5.0); NEUTROPHILS # 4.1 10^3/uL (1.5-8.5); PLATELET COUNT, AUTOMATED 222 10^3/uL (150-450); RED BLOOD COUNT 5.02 10^6/uL (4.00-5.40); WHITE BLOOD COUNT 6.7 10^3/uL (4.0-10.0)
[2020-01-06 10:44] LABS: BLOOD UREA NITROGEN 14 MG/DL (7-18); CARBON DIOXIDE LEVEL 27 MEQ/L (21-32); CHLORIDE LEVEL 101 MEQ/L (98-107); CREATININE FOR GFR 0.96 MG/DL (0.55-1.30); GLOMERULAR FILTRATION RATE > 60.0 (>45); GLUCOSE, FASTING 248 MG/DL (70-100); POTASSIUM SERUM 4.4 MEQ/L (3.5-5.1); SODIUM LEVEL 135 MEQ/L (136-145)
[2020-01-06 10:57] LABS: MALB URINE SIEMENS 11.5 MG/L; MAU/CREAT RATIO 8.1 MCG/MG (0.0-30.0)
[2020-01-06 11:22] LABS: HEMOGLOBIN A1c 7.1 %
== END ==
LOC: M LAB 09:26
PROVIDERS: ATTEND Family Medicine
DX: E11.9 Type 2 diabetes mellitus without complications (principal)

== ENCOUNTER → 2020-02-04 | Outpatient (CLI) | payer OTHER ==
[~2020-02-04] MED LIST changes: +HYDR-3490 PO; -HYDR25TAB PO
[2020-02-04 11:26] LABS: BLOOD UREA NITROGEN 12 MG/DL (7-18); CREATININE FOR GFR 0.72 MG/DL (0.55-1.30); GLOMERULAR FILTRATION RATE > 60.0 (>45)
== END ==
LOC: M LAB 10:29
PROVIDERS: ATTEND Surgery
DX: Z13.9 Encounter for screening, unspecified (principal)

== ENCOUNTER → 2020-03-23 | Outpatient (CLI) | payer OTHER ==
--- NOTE | 2020-03-25 04:51 | ECWPNPC ---
PATIENT NAME: YUMI DOS SANTOS : 1955 GENDER: FEMALE VISIT DATE: 03/23/2020 DISCHARGE DATE: 03/23/20 1140 VISIT LOCKED DATE TIME: PHYSICIAN: HORTENSIA QUARLES PHYSICIAN PAGER NO: ACTIVE RESOURCE: HORTENSIA QUARLES REASON FOR APPOINTMENT 1. ABDOMINAL PAIN HISTORY OF PRESENT ILLNESS DEPRESSION SCREENING: PHQ-2 (2015 EDITION) LITTLE INTEREST OR PLEASURE IN DOING THINGS?NOT AT ALL FEELING DOWN, DEPRESSED, OR HOPELESS?NOT AT ALL TOTAL SCORE0 64-YEAR-OLD FEMALE IN FOR CHRONIC PAIN FOLLOW-UP. SHE RATES HER PAIN CURRENTLY AT AN 8 OUT OF 10 AND DESCRIBES IT ACHING, AND SHARP. PATIENT FEELS HER MEDICATIONS ARE HELPFUL BUT DOES ADMITS TO PERIODS OF BREAKTHROUGH PAIN. GENERAL: -. FALL RISK SCREENING: SCREENING :NO FALLS REPORTED IN THE LAST YEAR PAIN SCREENING: PATIENT HAS A COMPLAINT OF ACUTE OR CHRONIC PAIN :YES LOCATION OF PAIN:ABDOMEN INTENSITY OF PAIN (SCALE OF 1 TO 10):8 WHAT DOES YOUR PAIN FEEL LIKE:ACHING, SHARP DURATION:CONTINOUS, CONSTANT, ALL DAY PAIN IS INCREASED BY:OTHERS BENDING OVER PAIN IS DECREASED BY:OTHERS RESTING NURSING NOTE: -. PAIN CENTER INTAKE QUESTIONS: DO YOU HAVE A HISTORY OF MRSA? :YES DO YOU TAKE A BLOOD THINNERS? :NO DO YOU HAVE ANY BLEEDING DISORDERS? :NO ANY NEW NUMBNESS OR WEAKNESS IN YOUR LEGS OR ARMS? :NO ANY PACEMAKER,DEFIBRILLATOR, OR DORSAL COLUMN STIMULATOR? :NO DO YOU HAVE ANY RASHES OR OPEN SORES? :YES OPEN WOUND ON ABDOMEN FROM SURGERY August ARE YOU ALLERGIC TO IV DYE? :NO ARE YOU DIABETIC? :YES ANY NEW PROBLEMS WITH YOUR MEDICATIONS? :NO HAVE YOU RECEIVED A VACCINE IN THE PAST 30 DAYS? :NO DO YOU PLAN TO RECEIVE A VACCINE IN THE NEXT 21 DAYS? :NO DO YOU NEED ANY PRESCRIPTION? :NO DO YOU TAKE ANY IMMUNOSUPPRESSIVE MEDICATIONS? :NO IS THERE A CHANCE YOU COULD BE ? :NO ARE YOU BREAST FEEDING? :NO CURRENT MEDICATIONS TAKING GLUCOMETER E11.9. CHECK ACHS TAKING PEN NEEDLES DIRECTED FOR CHAI ORTIZ E11.9 4 NEEDLES PER MONTH TAKING BLOOD GLUCOSE TEST - STRIP CHECK ACHS E11.9. IN VITRO DIRECTED TAKING AMLODIPINE BESYLATE 5 MG TABLET 1 TABLET ORALLY ONCE A DAY TAKING METFORMIN HCL 1000 MG TABLET 1 TABLET WITH A MEAL ORALLY BID TAKING BENAZEPRIL HCL 40 MG TABLET 1 TABLET ORALLY DAILY TAKING LASIX 40 MG TABLET 1 TABLET ORALLY ONCE A DAY TAKING LIPITOR 40 MG TABLET 1 TABLET ORALLY ONCE A DAY TAKING CYMBALTA 60 MG CAPSULE DELAYED RELEASE PARTICLES 1 CAPSULE WITH FOOD ORALLY BID TAKING TRULICITY 0.75 MG/0.5ML SOLUTION PEN-INJECTOR 1 INJECTION SUBCUTANEOUS WEEKLY TAKING LANTUS 100 UNIT/ML SOLUTION DIRECTED SUBCUTANEOUS 22UNITS IN AM, 40 UNITS AT HS TAKING LANCETS - MISCELLANEOUS E11.9 CHECK ACHS TAKING LANTUS SOLOSTAR 100 UNIT/ML SOLUTION PEN-INJECTOR DIRECTED SUBCUTANEOUS 20 UNITS AM, 40 UNITS HS DAILY TAKING HYDROCODONE-ACETAMINOPHEN 5-325 MG TABLET 1 TABLET NEEDED ORALLY FOR PAIN EVERY 6 HRS MDD4 TAKING PREGABALIN 50 MG CAPSULE 1 CAPSULE ORALLY THREE TIMES DAILY NOT-TAKING TRULICITY 1.5 MG/0.5ML SOLUTION PEN-INJECTOR DIRECTED SUBCUTANEOUS WEEKLY NOT-TAKING BACTRIM DS 800-160 MG TABLET 1 TABLET ORALLY TWICE A DAY NOT-TAKING TYLENOL 325 MG TABLET 2 TABLETS ORALLY EVERY 4 HRS MEDICATION LIST REVIEWED AND RECONCILED WITH THE PATIENT ALLERGIES NO[ALLERGIES VERIFIED] SOCIAL HISTORY GENERAL: TOBACCO USE ARE YOU A:NONSMOKER LATEX QUESTIONNAIRE LATEX ALLERGY : HAVE YOU EVER DEVELOPED ANY TYPE OF REACTION AFTER HANDLING LATEX PRODUCTS SUCH RUBBER GLOVES, CONDOMS, DIAPHRAGMS, BALLOONS, SOCKS, OR UNDERWEAR?NO LATEX ALLERGY : HAVE YOU EVER DEVELOPED ANY TYPE OF REACTION DURING OR AFTER DENTAL APPOINTMENT, VAGINAL/RECTAL EXAMINATION, SURGICAL PROCEDURE, OR ANY OTHER EXPOSURE?NO LATEX RISK : HAVE YOU EVER HAD ANY DIFFICULTY BREATHING OR HIVES AFTER EATING OR HANDLING ANY FRUITS, OR VEGETABLES; SUCH KIWI, BANANAS, STONE FRUITS, OR CHESTNUTSNO LATEX RISK : DO YOU HAVE A PREVIOUS PERSONAL HISTORY OF MORE THAN NINE SURGERIES, SPINA BIFIDA, OR REPEATED CATHERIZATIONS? YES - PLEASE INDICATE : > 9 SURGERIES LATEX RISK : ARE YOU FREQUENTLY EXPOSED TO LATEX PRODUCTS IN YOUR OCCUPATION?NO DATE ASKED : 03/23/2020 ALCOHOL USE: NO. ALCOHOL SCREENING DID YOU HAVE A DRINK CONTAINING ALCOHOL IN THE PAST YEAR?NO POINTS0 INTERPRETATIONNEGATIVE RECREATIONAL DRUG USE DRUG USE? NO , PATIENT DENIES ABUSE OR MISSUSED OF ANY MEDICATION . , PATIENT DENIES USE OF ANY ILLEGAL SUBSTANCE INCLUDING MARIJUANA OR COCAINE .. CAFFEINE CAFFEINE USE? NO. SEXUAL HX HAD SEX IN THE LAST 12 MONTHS (VAGINAL, ORAL, OR ANAL)?YES WITHMEN ONLY USE PROTECTION?NO HAVE YOU EVER HAD AN STD?NO HIV / HEP-C SCREENING HIV TEST OFFERED TO PATIENT:YES DATE OFFERED:11/01/2018 TEST ACCEPTED:NO HEP-C TEST OFFERED TO PATIENT:YES DATE OFFERED:11/01/2018 REASON:PATIENT DECLINED TEST ACCEPTED:NO REASON:PATIENT DECLINED BROCHURE PROVIDED TO PATIENTNO BUDDHISM BUDDHISM NO EPISCOPALIAN BELIEFS THAT WOULD IMPACT HEALTH CARE. 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 EXERCISE: WALKS, SWIMS. MARITAL STATUS: . OTHERS AT HOME: SPOUSE. TODAY'S VISIT 06/26/19 PATIENT DESCRIBES PAIN :ACHING, BURNING, HAVE IT ALL THE TIME, SHARP, STABBING, THROBBING, SORE, SHOOTING FROM 0-10, WHAT LEVEL IS YOUR PAIN TODAY?7 PRECIPITATING FACTORS NOTHING ALLEVIATING FACTORS NOTHING IMPACT ON FUNCTION SOMETIMES - PFS REFERRAL NEEDED?NO CLERGY REFERRAL NEEDED?NO PUBLIC HEALTH REFERRAL NEEDED?NO WAS THE PROVIDER NOTIFIED OF ANY PERTINENT INFO?NO HAS THE PATIENT BEEN EDUCATED REGARDING HIS/HER PLAN OF CARE?YES HAS THE PATIENT BEEN EDUCATED REGARDING PAIN, THE RISK FOR PAIN, THE IMPORTANCE OF EFFECTIVE PAIN MANAGEMENT, AND THE PAIN ASSESSMENT PROCESS?YES HOUSING: OWNS HOME. ADVANCE DIRECTIVE ADVANCE DIRECTIVE DISCUSSED WITH PATIENT:YES HCP - JESSICA DOS SANTOS () & NINA HUFF REVIEWED WITH PT 11/21/17 1529 BVREVIEWED WITH PATIENT 05/27/18 1337 JSREVIEWED WITH PT 09/17/18 1134 BVREVIEWED WITH PATIENT 03/03/2019 LAS. REVIEW OF SYSTEMS CONSTITUTIONAL: ANY RECENT FEVER NO . CHILLS NO . WEIGHT CHANGE OF UNKNOWN REASONS NO . GASTROENTEROLOGY: NEW UNEXPLAINABLE CHANGES IN BOWEL CONTROL NO . CONSTIPATION NO . GENITOURINARY: ANY NEW CHANGE IN BLADDER CONTROL? NO . NEUROLOGY: NEW ONSET DIZZINESS OR NEUROLOGICAL CHANGES NOT MENTIONED NO . NEW NUMBNESS OR PAIN PATTERNS NOT MENTIONED AND PERTINENT TO TODAY'S VISIT NO . CARDIOLOGY: NEW CHEST PRESSURE NO . NEW CHEST PAIN NO . RESPIRATORY: UNEXPLAINABLE COUGH NO . NEW SHORTNESS OF BREATH NO . VITAL SIGNS WT 233 LBS, HT 66 IN, BMI 37.60 INDEX, BP 136/67 MM HG, HR 83 /MIN, RR 19 /MIN, TEMP 97.0 F, OXYGEN SAT % 97%, SAFE IN ENV? (Y/N) YEST.DANIKA BARRIENTOS. EXAMINATION GENERAL EXAMINATION: GENERALNO ACUTE DISTRESS, WELL NOURISHED AND HYDRATED. PSYCHAPPROPRIATE MOOD AND AFFECT . LUNGS:CLEAR TO AUSCULTATION BILATERALLY, NO WHEEZES, RHONCHI, RALES. HEART:NO MURMURS, REGULAR RATE AND RHYTHM. ASSESSMENTS LOWER ABDOMINAL PAIN - R10.30 (PRIMARY), RISK: (NULL) TREATMENT LOWER ABDOMINAL PAIN REFILL HYDROCODONE-ACETAMINOPHEN TABLET, 5-325 MG, 1 TABLET NEEDED, ORALLY FOR PAIN, EVERY 6 HRS MDD4, 30 DAYS, 120, REFILLS 0 REFILL PREGABALIN CAPSULE, 75 MG, 1 CAPSULE, ORALLY, THREE TIMES DAILY, 30 DAYS, 90, REFILLS 0 NOTES: 64-YEAR-OLD FEMALE IN FOR CHRONIC PAIN FOLLOW-UP. GIVEN PRESENTING SYMPTOMS RECOMMEND INCREASING LYRICA TO 75 MG 3 TIMES A DAY WITH FOLLOW-UP IN 3 MONTHS. PATIENT HAS EXPRESSED UNDER SENDING OF AND WAS IN AGREEMENT WITH TREATMENT PLAN. GIVEN TIME TO ASK QUESTIONS AND EXPRESS CONCERNS. , ISTOP REGISTRY REVIEWED AND DEMONSTRATES COMPLLIANCE. (REF # [id number] ) BRINGS IN MEDICATIONS WHICH IS APPROPRIATE FOR WHAT WAS DISPENSED. RECENT URINE TOXICOLOGY REVIEWED. NO UNAUTHORIZED MEDICATIONS. NO ILLICIT SUBSTANCES AND PRESCRIBED MEDICATIONS WERE PRESENT. PROCEDURE CODES FA211 ESTABILISHED PATIENT [facility] CHARGE DISPOSITION & COMMUNICATION FOLLOW UP 3 MONTHS (REASON: ABDOMINAL PAIN) ELECTRONICALLY SIGNED BY MOJGAN KENT ON 03/24/2020 AT 12:53 PM EST DISCLAIMER : THIS IS A VISIT SUMMARY EXTRACTED FROM THE [employer] CHART. IT IS NOT A COPY OF THE [employer] PROGRESS NOTE. ANIYAH
== END ==
LOC: M PAIN 10:30
PROVIDERS: ATTEND Family Medicine
DX: R10.30 Lower abdominal pain, unspecified (principal); E11.9 Type 2 diabetes mellitus without complications; Z79.4 Long term (current) use of insulin; Z79.891 Long term (current) use of opiate analgesic; Z79.899 Other long term (current) drug therapy

== ENCOUNTER → 2020-07-06 | Outpatient (CLI) | payer OTHER ==
--- NOTE | 2020-07-08 03:53 | ECWPNPC ---
PATIENT NAME: YUMI DOS SANTOS : 1955 GENDER: FEMALE VISIT DATE: 07/06/2020 DISCHARGE DATE: 07/06/20 1008 VISIT LOCKED DATE TIME: PHYSICIAN: HORTENSIA QUARLES PHYSICIAN PAGER NO: ACTIVE RESOURCE: HORTENSIA QUARLES REASON FOR APPOINTMENT 1. ABDOMINAL PAIN HISTORY OF PRESENT ILLNESS DEPRESSION SCREENING: PHQ-2 (2015 EDITION) LITTLE INTEREST OR PLEASURE IN DOING THINGS?NOT AT ALL FEELING DOWN, DEPRESSED, OR HOPELESS?SEVERAL DAYS TOTAL SCORE1 GENERAL: HPI C4 OLD FEMALE IN FOR CHRONIC PAIN FOLLOW-UP. SHE RATES HER PAIN CURRENTLY AT AN 8 OUT OF 10 AND DESCRIBES IT ACHING, BURNING, CONTINUOUS, SHARP, STABBING, TENDER, THROBBING, SORE, AND SHOOTING. PATIENT FEELS HER MEDICATIONS ARE HELPFUL AND DENIES MED SIDE EFFECTS AT THIS TIME. SHE DOES ADMIT TO DROPPING HER MEDICATIONS ON THE FLOOR AND HAVING TO SWEEP THEM UP RECENTLY AND THROWING THEM AWAY.. -. FALL RISK SCREENING: SCREENING ONE FALL REPORTED IN THE LAST YEAR. PATIENT STATES HER "INJURIES ARE UNKNOWN." PATIENT FELL AT THE HOSPITAL.. PAIN SCREENING: PATIENT HAS A COMPLAINT OF ACUTE OR CHRONIC PAIN :YES LOCATION OF PAIN:ABDOMEN INTENSITY OF PAIN (SCALE OF 1 TO 10):8 WHAT DOES YOUR PAIN FEEL LIKE:ACHING, BURNING, CONTINOUS, SHARP, STABBING, TENDER, THROBBING, SORE, SHOOTING DURATION:CONTINOUS, CONSTANT, AWAKENS FROM SLEEP PAIN IS INCREASED BY:ACTIVITIES, PROLONGED STANDING PAIN IS DECREASED BY:USE OF PAIN MEDICATIONS NURSING NOTE: -. PAIN CENTER INTAKE QUESTIONS: DO YOU HAVE A HISTORY OF MRSA? :NO DO YOU TAKE A BLOOD THINNERS? :NO DO YOU HAVE ANY BLEEDING DISORDERS? :NO ANY NEW NUMBNESS OR WEAKNESS IN YOUR LEGS OR ARMS? :YES WEAKNESS IN BILATERAL WEAKNESS ANY PACEMAKER,DEFIBRILLATOR, OR DORSAL COLUMN STIMULATOR? :NO DO YOU HAVE ANY RASHES OR OPEN SORES? :YES OPEN WOUND ON ABDOMEN FROM SURGERY August ARE YOU ALLERGIC TO IV DYE? :NO ARE YOU DIABETIC? :YES ANY NEW PROBLEMS WITH YOUR MEDICATIONS? :NO HAVE YOU RECEIVED A VACCINE IN THE PAST 30 DAYS? :YES IF SO WHAT VACCINE AND WHEN? SECOND COVID VACCINE 06/09/2020 DO YOU PLAN TO RECEIVE A VACCINE IN THE NEXT 21 DAYS? :NO DO YOU NEED ANY PRESCRIPTION? :YES LYRICA AND HYDROCODONE DO YOU TAKE ANY IMMUNOSUPPRESSIVE MEDICATIONS? :NO IS THERE A CHANCE YOU COULD BE ? :NO ARE YOU BREAST FEEDING? :NO CURRENT MEDICATIONS TAKING GLUCOMETER E11.9. CHECK ACHS TAKING PEN NEEDLES DIRECTED FOR BYOFELIA BCISE E11.9 4 NEEDLES PER MONTH TAKING BLOOD GLUCOSE TEST - STRIP CHECK ACHS E11.9. IN VITRO DIRECTED TAKING AMLODIPINE BESYLATE 5 MG TABLET 1 TABLET ORALLY ONCE A DAY TAKING METFORMIN HCL 1000 MG TABLET 1 TABLET WITH A MEAL ORALLY BID TAKING BENAZEPRIL HCL 40 MG TABLET 1 TABLET ORALLY DAILY TAKING LASIX 40 MG TABLET 1 TABLET ORALLY ONCE A DAY TAKING LIPITOR 40 MG TABLET 1 TABLET ORALLY ONCE A DAY TAKING CYMBALTA 60 MG CAPSULE DELAYED RELEASE PARTICLES 1 CAPSULE WITH FOOD ORALLY BID TAKING TRULICITY 0.75 MG/0.5ML SOLUTION PEN-INJECTOR 1 INJECTION SUBCUTANEOUS WEEKLY TAKING LANTUS 100 UNIT/ML SOLUTION DIRECTED SUBCUTANEOUS 22UNITS IN AM, 40 UNITS AT HS TAKING LANCETS - MISCELLANEOUS E11.9 CHECK ACHS TAKING LANTUS SOLOSTAR 100 UNIT/ML SOLUTION PEN-INJECTOR DIRECTED SUBCUTANEOUS 20 UNITS AM, 40 UNITS HS DAILY TAKING HYDROCODONE-ACETAMINOPHEN 5-325 MG TABLET 1 TABLET NEEDED ORALLY FOR PAIN EVERY 6 HRS MDD4 TAKING PREGABALIN 75 MG CAPSULE 1 CAPSULE ORALLY THREE TIMES DAILY TAKING TRULICITY 1.5 MG/0.5ML SOLUTION PEN-INJECTOR DIRECTED SUBCUTANEOUS WEEKLY NOT-TAKING BACTRIM DS 800-160 MG TABLET 1 TABLET ORALLY TWICE A DAY NOT-TAKING TYLENOL 325 MG TABLET 2 TABLETS ORALLY EVERY 4 HRS MEDICATION LIST REVIEWED AND RECONCILED WITH THE PATIENT PAST MEDICAL HISTORY OBESITY DEPRESSION: SHE HAD IN HIGH SCHOOL SUICIDE ATTEMPT WITH SWALLOWING PILLS, HAS FOUND COUNSELING HELPFUL IN THE PAST. SARCOIDOSIS: A CHILD WAS DIAGNOSED WITH A BIOPSY, HAS NEVER SEEN A DOCTOR FOR THIS SINCE CHILDHOOD. DIABETES MELLITUS, TYPE 2, GOAL A1C 7% HYPERTENSION, GOAL 140/90 HEART DISEASE: "I HAVE UPSIDE DOWN T-WAVES, FATHER AT AGE 68 FROM IT AND I HAVE HYPERTENSION" OSTEOARTHRITIS: "ALL OVER" CHRONIC PAIN, ABDOMINAL FRACTURED VERTEBRAE ALLERGIES TERRAMYCIN: HIVES/WATER BLISTERS - ALLERGY PENICILLIN (FOR ALLERGIES USE ONLY): HIVES/WATER BLISTERS - ALLERGY ASPIRIN: RASH/WATER BLISTERS - ALLERGY TEGRETOL: HIVES/WATER BLISTERS - ALLERGY BENADRYL: HIVES/WATER BLISTERS - ALLERGY MORPHINE SULFATE: HIVES/WATER BLISTERS - ALLERGY FAMILY HISTORY FATHER: 68 YRS, DIAGNOSED WITH UNSPECIFIED HEART DISEASE MOTHER: 68 YRS, UNSPECIFIED HEART DISEASE SOCIAL HISTORY GENERAL: TOBACCO USE ARE YOU A:NONSMOKER LATEX QUESTIONNAIRE LATEX ALLERGY : HAVE YOU EVER DEVELOPED ANY TYPE OF REACTION AFTER HANDLING LATEX PRODUCTS SUCH RUBBER GLOVES, CONDOMS, DIAPHRAGMS, BALLOONS, SOCKS, OR UNDERWEAR?NO LATEX ALLERGY : HAVE YOU EVER DEVELOPED ANY TYPE OF REACTION DURING OR AFTER DENTAL APPOINTMENT, VAGINAL/RECTAL EXAMINATION, SURGICAL PROCEDURE, OR ANY OTHER EXPOSURE?NO LATEX RISK : HAVE YOU EVER HAD ANY DIFFICULTY BREATHING OR HIVES AFTER EATING OR HANDLING ANY FRUITS, OR VEGETABLES; SUCH KIWI, BANANAS, STONE FRUITS, OR CHESTNUTSNO LATEX RISK : DO YOU HAVE A PREVIOUS PERSONAL HISTORY OF MORE THAN NINE SURGERIES, SPINA BIFIDA, OR REPEATED CATHERIZATIONS? YES - PLEASE INDICATE : > 9 SURGERIES LATEX RISK : ARE YOU FREQUENTLY EXPOSED TO LATEX PRODUCTS IN YOUR OCCUPATION?NO DATE ASKED : 07/06/2020 ALCOHOL USE: NO. ALCOHOL SCREENING DID YOU HAVE A DRINK CONTAINING ALCOHOL IN THE PAST YEAR?NO POINTS0 INTERPRETATIONNEGATIVE RECREATIONAL DRUG USE DRUG USE? NO , PATIENT DENIES ABUSE OR MISSUSED OF ANY MEDICATION . , PATIENT DENIES USE OF ANY ILLEGAL SUBSTANCE INCLUDING MARIJUANA OR COCAINE .. CAFFEINE CAFFEINE USE? NO. SEXUAL HX HAD SEX IN THE LAST 12 MONTHS (VAGINAL, ORAL, OR ANAL)?YES WITHMEN ONLY USE PROTECTION?NO HAVE YOU EVER HAD AN STD?NO HIV / HEP-C SCREENING HIV TEST OFFERED TO PATIENT:YES DATE OFFERED:11/01/2018 TEST ACCEPTED:NO HEP-C TEST OFFERED TO PATIENT:YES DATE OFFERED:11/01/2018 REASON:PATIENT DECLINED TEST ACCEPTED:NO REASON:PATIENT DECLINED BROCHURE PROVIDED TO PATIENTNO RELIGIOUS RELIGIOUS NO CONGREGATIONAL BELIEFS THAT WOULD IMPACT HEALTH CARE. 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 EXERCISE: WALKS, SWIMS. MARITAL STATUS: . OTHERS AT HOME: SPOUSE. TODAY'S VISIT 06/26/19 PATIENT DESCRIBES PAIN :ACHING, BURNING, HAVE IT ALL THE TIME, SHARP, STABBING, THROBBING, SORE, SHOOTING FROM 0-10, WHAT LEVEL IS YOUR PAIN TODAY?7 PRECIPITATING FACTORS NOTHING ALLEVIATING FACTORS NOTHING IMPACT ON FUNCTION SOMETIMES - PFS REFERRAL NEEDED?NO CLERGY REFERRAL NEEDED?NO PUBLIC HEALTH REFERRAL NEEDED?NO WAS THE PROVIDER NOTIFIED OF ANY PERTINENT INFO?NO HAS THE PATIENT BEEN EDUCATED REGARDING HIS/HER PLAN OF CARE?YES HAS THE PATIENT BEEN EDUCATED REGARDING PAIN, THE RISK FOR PAIN, THE IMPORTANCE OF EFFECTIVE PAIN MANAGEMENT, AND THE PAIN ASSESSMENT PROCESS?YES HOUSING: OWNS HOME. ADVANCE DIRECTIVE ADVANCE DIRECTIVE DISCUSSED WITH PATIENT:YES HCP - JESSICA CONTEELI () & NINA HUFF REVIEWED WITH PT 11/21/17 1529 BVREVIEWED WITH PATIENT 05/27/18 1337 JSREVIEWED WITH PT 09/17/18 1134 BVREVIEWED WITH PATIENT 03/03/2019 LAS. REVIEW OF SYSTEMS CONSTITUTIONAL: ANY RECENT FEVER NO . CHILLS NO . WEIGHT CHANGE OF UNKNOWN REASONS NO . GASTROENTEROLOGY: NEW UNEXPLAINABLE CHANGES IN BOWEL CONTROL NO . CONSTIPATION NO . GENITOURINARY: ANY NEW CHANGE IN BLADDER CONTROL? NO . NEUROLOGY: NEW ONSET DIZZINESS OR NEUROLOGICAL CHANGES NOT MENTIONED NO . NEW NUMBNESS OR PAIN PATTERNS NOT MENTIONED AND PERTINENT TO TODAY'S VISIT NO . CARDIOLOGY: NEW CHEST PRESSURE NO . PATIENT DENIES NO . RESPIRATORY: UNEXPLAINABLE COUGH NO . NEW SHORTNESS OF BREATH NO . VITAL SIGNS WT 230.6 LBS, HT 66 IN, BMI 37.22 INDEX, BP 147/69 MM HG, HR 93 /MIN, RR 18 /MIN, TEMP 97.3 F, OXYGEN SAT % 98%, NA INITIALS AW 0930. EXAMINATION GENERAL EXAMINATION: GENERALNO ACUTE DISTRESS, WELL NOURISHED AND HYDRATED. PSYCHAPPROPRIATE MOOD AND AFFECT . LUNGS:CLEAR TO AUSCULTATION BILATERALLY, NO WHEEZES, RHONCHI, RALES. HEART:NO MURMURS, REGULAR RATE AND RHYTHM. ASSESSMENTS LOWER ABDOMINAL PAIN - R10.30 (PRIMARY) CHRONIC PRESCRIPTION OPIATE USE - Z79.891 TREATMENT CHRONIC PRESCRIPTION OPIATE USE LAB: URINE TEST GROUP CHARLINE GUERRA 07/06/2020 9:59:10 AM > LAST DOSE: PREGABALIN 07/01/2020 AT 0900; HYDROCODONE-ACETAMINOPHEN 07/01/2020 AT 0900 NOTES: 64-YEAR-OLD FEMALE IN FOR CHRONIC PAIN FOLLOW-UP. PATIENT WAS REMINDED THAT WE DO NOT REPLACE LOST OR STOLEN PRESCRIPTIONS. SHE DOES ADMIT THAT SHE HAS NOT HAD HER MEDICATIONS IN A FEW DAYS GIVEN THEM FALLING ON THE FLOOR. GIVEN PRESENTING SYMPTOMS RECOMMEND CONTINUATION OF CURRENT MEDICATION REGIMENS WITH FOLLOW-UP IN 3 MONTHS. PATIENT HAS EXPRESSED UNDERSTANDING OF AND WAS IN AGREEMENT WITH TREATMENT PLAN. GIVEN TIME TO ASK QUESTIONS AND EXPRESS CONCERNS. ISTOP REGISTRY REVIEWED AND DEMONSTRATES COMPLLIANCE. (REF # [id number] ) BRINGS IN MEDICATIONS WHICH IS APPROPRIATE FOR WHAT WAS DISPENSED. RECENT URINE TOXICOLOGY REVIEWED. NO UNAUTHORIZED MEDICATIONS. NO ILLICIT SUBSTANCES AND PRESCRIBED MEDICATIONS WERE PRESENT. PROCEDURE CODES FA211 ESTABILISHED PATIENT [facility] CHARGE DISPOSITION & COMMUNICATION FOLLOW UP 3 MONTHS (REASON: ABDOMINAL PAIN) ELECTRONICALLY SIGNED BY MOJGAN KENT ON 07/07/2020 AT 08:37 AM EDT DISCLAIMER : THIS IS A VISIT SUMMARY EXTRACTED FROM THE [employer] CHART. IT IS NOT A COPY OF THE [employer] PROGRESS NOTE. ANIYAH
== END ==
LOC: M PAIN 09:15
PROVIDERS: ATTEND Family Medicine
DX: R10.30 Lower abdominal pain, unspecified (principal); G89.29 Other chronic pain; E11.9 Type 2 diabetes mellitus without complications; Z86.59 Personal history of other mental and behavioral disorders; Z88.0 Allergy status to penicillin; Z88.1 Allergy status to other antibiotic agents; Z88.5 Allergy status to narcotic agent; Z88.6 Allergy status to analgesic agent; Z88.8 Allergy status to other drugs, medicaments and biological substances; Z79.4 Long term (current) use of insulin; Z79.899 Other long term (current) drug therapy

== ENCOUNTER → 2020-09-07 | Outpatient (CLI) | payer OTHER ==
[~2020-09-07] MED LIST changes: -BENA40TA5 PO; +BENA40TA84 PO; -FLUO10CA16 PO; +FLUO10CA18 PO; +OMEP40CA4 PO; -OMEP40CA97 PO
[2020-09-07 13:01] LABS: BLOOD UREA NITROGEN 9 MG/DL (7-18); CALCIUM LEVEL 9.7 MG/DL (8.8-10.2); CARBON DIOXIDE LEVEL 26 MEQ/L (21-32); CHLORIDE LEVEL 99 MEQ/L (98-107); CREATININE FOR GFR 0.76 MG/DL (0.55-1.30); GLOMERULAR FILTRATION RATE > 60.0 (>45); GLUCOSE, FASTING 134 MG/DL (70-100); POTASSIUM SERUM 4.2 MEQ/L (3.5-5.1); SODIUM LEVEL 135 MEQ/L (136-145)
== END ==
LOC: M LAB 11:34
PROVIDERS: ATTEND Surgery
DX: Z01.818 Encounter for other preprocedural examination (principal)

== ENCOUNTER → 2020-09-14 | Outpatient (CLI) | payer OTHER ==
[~2020-09-14] MED LIST changes: +BENA40TA5 PO; -BENA40TA84 PO; +FLUO10CA16 PO; -FLUO10CA18 PO; +ISOVUE-370 76% 100ML VIAL As Ordered ONE
--- NOTE | 2020-09-14 16:26 | REP ---
INDICATION: R10.9- ABD PAIN. COMPARISON: 04/24/2019 TECHNIQUE: Bolus of 100 mL Isovue 370 scanning through the abdomen and pelvis with coronal and sagittal reconstructions. FINDINGS: CT abdomen: Lung bases without infiltrate or effusion. Heart size not grossly enlarged. There is no pericardial thickening or effusion. There are some coronary calcifications. No hiatal hernia. The liver is enlarged with the 20 cm vertical diameter the midclavicular line. No hepatic mass or biliary dilatation. No visible cyst or abnormal calcification. No adjacent ascites. There is no splenomegaly or focal splenic lesion. Gallbladder shows no calcified stone or mass. Pancreas is without mass, ductal dilatation, abnormal calcification or peripancreatic fluid collections/adenopathy. No adrenal lesions are noted. There is lobation of the kidney contour which is an anatomic variant. No gross hydronephrosis. No renal, ureteral or bladder stone. Small bowel loops in the upper abdomen unremarkable there is anastomotic suture line in bowel loop in the right upper quadrant unchanged. There is thickening of the deep and superficial fascia and some baby scarring at previous surgical site all this is unchanged small loops of small bowel appear attached to the deep fascia of the anterior abdominal wall the right. No sign of obstruction or air-fluid levels. Distal small bowel loops fluid-filled and some of the bowel loops have slightly thickened mayorga there is a nonspecific finding. No definite edema in the mesentery or mesenteric pathologic sized adenopathy. Colon shows stool and gas in the ascending portion. Flexures and transverse colon with scattered stool and gas into the left colon. No dilatation or inflammatory changes are noted. The aorta is without aneurysm or dissection no periaortic, other retroperitoneal or mesenteric pathologic sized lymph adenopathy. The bone windows show a superior endplate grade 1 compression L1 unchanged. Mild focal kyphosis at the thoracolumbar junction also unchanged no new or acute compression deformities. Posterior elements intact. Thoracic spine with more spondylosis of than lumbar region. Lower ribs are grossly intact. CT pelvis:, The distal left colon sigmoid and rectum are unremarkable. Uterus is absent. The vaginal cuff intact. There is no adnexal mass. Bladder is nearly empty and without stone, wall thickening or mass. No distal ureteral dilatation or stone. There are some pelvic phleboliths. No pelvic free fluid or adenopathy. The bone windows show sacrum, SI joints, pelvis and hips with minor degenerative changes but no destructive lesions or fractures. There is subcutaneous scarring in the fat just above the superficial fascia of the lower abdominal wall near pelvis and symphysis. This is unchanged. No ventral or inguinal hernia nor pathologic sized inguinal adenopathy. IMPRESSION: 1. Prior surgical changes in the anterior abdominal wall with extensive scarring in the subcutaneous fat abutting the rectus fascia in the midline and paramedian regions of the mid to lower abdomen/upper pelvis. This is unchanged. 2. No ventral or inguinal hernia nor pathologic sized inguinal adenopathy. Surgical changes in the right mid abdomen with small bowel loops having anastomotic suture line, no obstruction. Some of the small bowel loops have slightly thickened mayorga as a nonspecific finding but no air-fluid levels or mesenteric edema/infiltration. 3. Colon with no sign of colitis, diverticulitis, stricture or mass. 4. Hepatomegaly with 20 cm vertical diameter of the right lobe. Gallbladder distended without calcified stone or mass. The pancreas, adrenal glands and kidneys without acute finding. Spleen without acute finding. <Electronically signed by Reji Oliveros > 09/14/20 [id number]
== END ==
LOC: M RAD 14:09
PROVIDERS: ATTEND Surgery
DX: R10.9 Unspecified abdominal pain (principal)

== ENCOUNTER → 2020-10-06 | Outpatient (CLI) | payer OTHER, MEDICARE ==
[~2020-10-06] MED LIST changes: -ISOVUE-370 76% 100ML VIAL As Ordered ONE
== END ==
LOC: M PAIN 10:00
PROVIDERS: ATTEND Anesthesiology
DX: R10.30 Lower abdominal pain, unspecified (principal); G89.29 Other chronic pain; E11.9 Type 2 diabetes mellitus without complications; Z86.59 Personal history of other mental and behavioral disorders; Z88.0 Allergy status to penicillin; Z88.1 Allergy status to other antibiotic agents; Z88.5 Allergy status to narcotic agent; Z88.6 Allergy status to analgesic agent; Z88.8 Allergy status to other drugs, medicaments and biological substances; Z79.4 Long term (current) use of insulin; Z79.899 Other long term (current) drug therapy

== ENCOUNTER → 2020-11-19 | Outpatient (CLI) | payer OTHER | LOC: M PAIN 12:30 | PROVIDERS: ATTEND Anesthesiology | DX: Z79.891 Long term (current) use of opiate analgesic (principal) ==

== ENCOUNTER → 2021-06-13 | Outpatient (CLI) | payer OTHER ==
[~2021-06-13] MED LIST changes: -BENA40TA5 PO; +BENA40TA84 PO; -FLUO10CA16 PO; +FLUO10CA18 PO
== END ==
LOC: M PAIN 10:15
PROVIDERS: ATTEND Nurse Practitioner Family
DX: R10.30 Lower abdominal pain, unspecified (principal); E66.9 Obesity, unspecified; F32.A Depression, unspecified; E11.9 Type 2 diabetes mellitus without complications; I10 Essential (primary) hypertension; M19.90 Unspecified osteoarthritis, unspecified site; G89.29 Other chronic pain; Z79.4 Long term (current) use of insulin; Z79.891 Long term (current) use of opiate analgesic; Z79.899 Other long term (current) drug therapy; Z68.35 Body mass index [BMI] 35.0-35.9, adult; Z88.0 Allergy status to penicillin; Z88.5 Allergy status to narcotic agent; Z88.6 Allergy status to analgesic agent; Z88.8 Allergy status to other drugs, medicaments and biological substances

== ENCOUNTER 2021-11-05 13:01 | Emergency (ER) | payer OTHER ==
[~2021-11-05] VITALS: Ht 167.6 cm; Wt 100.0 kg
[~2021-11-05 13:01] MED LIST changes: +SIMV-252 PO; -ZOCO10TA PO
[2021-11-05] MEDS ORDERED: NITROGLYCERIN 0.4 MG SUBL TABLET SL STA (13:16)
[2021-11-05 13:48] LABS: BASO # 0.1 10^3/uL (0.0-0.2); BASO % 0.8 % (0.0-1.0); EOS # 0.1 10^3/uL (0.0-0.5); EOS % 1.4 % (0.0-3.0); HEMATOCRIT 37.2 % (36.0-47.0); HEMOGLOBIN 11.8 g/dl (12.0-15.5); LYMPH # 1.4 10^3/uL (1.5-5.0); LYMPH % 18.3 % (24.0-44.0); MEAN CORPUSCULAR HEMOGLOBIN 25.3 pg (27.0-33.0); MEAN CORPUSCULAR HGB CONC 31.7 g/dl (32.0-36.5); MEAN CORPUSCULAR VOLUME 79.7 fl (80.0-96.0); MONO # 0.5 10^3/uL (0.0-0.8); NEUTROPHILS # 5.6 10^3/uL (1.5-8.5); NEUTROPHILS % 72.4 % (36.0-66.0); PLATELET COUNT, AUTOMATED 193 10^3/uL (150-450); RED BLOOD COUNT 4.67 10^6/uL (4.00-5.40); WHITE BLOOD COUNT 7.8 10^3/uL (4.0-10.0)
[2021-11-05 13:58] LABS: INR 0.97; PROTHROMBIN TIME 13.3 SECONDS (12.7-14.5)
[2021-11-05 13:59] LABS: PARTIAL THROMBOPLASTIN TIME 25.4 SECONDS (25.9-37.0)
[2021-11-05 14:01] LABS: D-DIMER QUANT 596.37 ng/ml (<500)
[2021-11-05] MEDS ORDERED: FURO40TA2 (14:09)
[2021-11-05] MEDS ORDERED: DIPH25CA32 (14:09)
[2021-11-05] MEDS ORDERED: PREG75CA2 (14:09)
[2021-11-05 14:21] LABS: CK-MB VALUE MASS < 1.0 NG/ML (<3.6); CPK CREATINE PHOSPHOKINASE 45 U/L (26-192); MB/CK RELATIVE INDEX 2.22 (< OR =4)
[2021-11-05 14:28] LABS: ALBUMIN 3.3 GM/DL (3.2-5.2); ALT/SGPT 16 U/L (12-78); BILIRUBIN,DIRECT 0.1 MG/DL (0.0-0.2); BILIRUBIN,TOTAL 0.3 MG/DL (0.2-1.0); BLOOD UREA NITROGEN 11 MG/DL (7-18); CALCIUM LEVEL 9.2 MG/DL (8.8-10.2); CARBON DIOXIDE LEVEL 28 MEQ/L (21-32); CHLORIDE LEVEL 103 MEQ/L (98-107); CREATININE FOR GFR 0.72 MG/DL (0.55-1.30); FREE T4 1.02 NG/DL (0.76-1.46); GLOMERULAR FILTRATION RATE > 60.0 (>45); GLUCOSE, FASTING 177 MG/DL (70-100); LIPASE 124 U/L (73-393); NT-PRO BNP 133 PG/ML (<125); SODIUM LEVEL 135 MEQ/L (136-145); TOTAL PROTEIN 7.1 GM/DL (6.4-8.2)
[2021-11-05 15:17] LABS: CK-MB VALUE MASS < 1.0 NG/ML (<3.6); CPK CREATINE PHOSPHOKINASE 29 U/L (26-192); MB/CK RELATIVE INDEX 3.45 (< OR =4)
[2021-11-05] MEDS ORDERED: ISOVUE-370 76% 100ML VIAL As Ordered ONE (15:24)
[2021-11-05 16:24] VITALS: BP 162/71
== END 2021-11-05 16:40 | disposition home or self-care (01) ==
LOC: M ED 13:01 → EDBD 13:01 → M ED 16:40
DX: R07.9 Chest pain, unspecified (principal); E11.9 Type 2 diabetes mellitus without complications; I10 Essential (primary) hypertension; Z88.0 Allergy status to penicillin; Z88.1 Allergy status to other antibiotic agents; Z88.6 Allergy status to analgesic agent; Z88.8 Allergy status to other drugs, medicaments and biological substances
CPT/HCPCS: 36415; 71045; 71275; 74177; 80048; 80076; 82550; 82553; 83690; 83880; 84439; 84443; 84484; 85025; 85379; 85610; 85730; 93005; 93041; 93970; 94760; 99285; Q9967

== ENCOUNTER 2021-11-13 20:45 | Emergency (ER) | payer OTHER ==
[~2021-11-13] VITALS: Ht 167.6 cm; Wt 115.3 kg
[~2021-11-13 20:45] MED LIST changes: +DIPH25CA32; +FURO40TA2; +PREG75CA2
[2021-11-13] MEDS ORDERED: amLODIPine 5 MG TAB PO ONE (21:15)
[2021-11-13] MEDS ORDERED: fentaNYL 100 MCG/2 ML INJECTION IV ONE (21:15)
[2021-11-13 21:18] LABS: BASO # 0.1 10^3/uL (0.0-0.2); BASO % 1.1 % (0.0-1.0); EOS # 0.2 10^3/uL (0.0-0.5); EOS % 2.7 % (0.0-3.0); HEMOGLOBIN 13.3 g/dl (12.0-15.5); LYMPH # 2.4 10^3/uL (1.5-5.0); LYMPH % 36.9 % (24.0-44.0); MEAN CORPUSCULAR HGB CONC 31.7 g/dl (32.0-36.5); MEAN CORPUSCULAR VOLUME 78.9 fl (80.0-96.0); MONO # 0.5 10^3/uL (0.0-0.8); MONO % 7.4 % (2.0-8.0); NEUTROPHILS # 3.3 10^3/uL (1.5-8.5); NEUTROPHILS % 51.6 % (36.0-66.0); PLATELET COUNT, AUTOMATED 186 10^3/uL (150-450); RED BLOOD COUNT 5.32 10^6/uL (4.00-5.40); WHITE BLOOD COUNT 6.4 10^3/uL (4.0-10.0)
[2021-11-13 21:30] VITALS: BP 193/83
[2021-11-13] MEDS: GASTROGRAFIN SOLUTION 30ML PO SCH ×2 (21:34→22:04)
[2021-11-13 21:51] LABS: ALBUMIN 3.7 GM/DL (3.2-5.2); ALT/SGPT 17 U/L (12-78); BILIRUBIN,DIRECT 0.1 MG/DL (0.0-0.2); BILIRUBIN,TOTAL 0.3 MG/DL (0.2-1.0); BLOOD UREA NITROGEN 11 MG/DL (7-18); CALCIUM LEVEL 9.1 MG/DL (8.8-10.2); CARBON DIOXIDE LEVEL 26 MEQ/L (21-32); CHLORIDE LEVEL 99 MEQ/L (98-107); CREATININE FOR GFR 0.83 MG/DL (0.55-1.30); GLOMERULAR FILTRATION RATE > 60.0 (>45); GLUCOSE, FASTING 367 MG/DL (70-100); LIPASE 187 U/L (73-393); POTASSIUM SERUM 4.1 MEQ/L (3.5-5.1); SODIUM LEVEL 133 MEQ/L (136-145); TOTAL PROTEIN 8.3 GM/DL (6.4-8.2)
[2021-11-13 22:09] LABS: CK-MB VALUE MASS < 1.0 NG/ML (<3.6); CPK CREATINE PHOSPHOKINASE 45 U/L (26-192); MB/CK RELATIVE INDEX 2.22 (< OR =4)
[2021-11-13] MEDS ORDERED: ISOVUE-370 76% 100ML VIAL As Ordered ONE (22:49)
[2021-11-13 23:49] LABS: CK-MB VALUE MASS < 1.0 NG/ML (<3.6); CPK CREATINE PHOSPHOKINASE 57 U/L (26-192); MB/CK RELATIVE INDEX 1.75 (< OR =4)
[2021-11-14] MEDS ORDERED: fentaNYL 100 MCG/2 ML INJECTION IV ONE (00:15)
[2021-11-14] MEDS ORDERED: ONDANSETRON 4MG 2ML VIAL IV ONE (00:15)
[2021-11-14 00:52] LABS: CK-MB VALUE MASS < 1.0 NG/ML (<3.6); CPK CREATINE PHOSPHOKINASE 34 U/L (26-192)
[2021-11-14 00:53] LABS: MB/CK RELATIVE INDEX 2.94 (< OR =4)
[2021-11-14 01:00] VITALS: BP 161/72
== END 2021-11-14 01:46 | disposition home or self-care (01) ==
LOC: EDBD 20:45 → M ED 20:45
DX: R10.84 Generalized abdominal pain (principal); D86.9 Sarcoidosis, unspecified; E11.9 Type 2 diabetes mellitus without complications; E66.9 Obesity, unspecified; G47.33 Obstructive sleep apnea (adult) (pediatric); I10 Essential (primary) hypertension; I45.10 Unspecified right bundle-branch block; Z79.4 Long term (current) use of insulin; Z79.84 Long term (current) use of oral hypoglycemic drugs; Z79.899 Other long term (current) drug therapy; Z88.0 Allergy status to penicillin; Z88.5 Allergy status to narcotic agent; Z88.6 Allergy status to analgesic agent; Z88.8 Allergy status to other drugs, medicaments and biological substances; Z96.82 Presence of neurostimulator
CPT/HCPCS: 74177; 80048; 80076; 82550; 82553; 83605; 83690; 84484; 85025; 93005; 93041; 96374; 96375; 99285; J2405; J3010; Q9963; Q9967

== ENCOUNTER → 2021-11-24 | Outpatient (CLI) | payer OTHER ==
[~2021-11-24] MED LIST changes: +REGL10TA6 PO
[2021-11-24 14:05] LABS: APPEARANCE, URINE MANUAL CLEAR (CLEAR); COLOR, URINE MANUAL YELLOW (YELLOW)
[2021-11-24 14:06] LABS: KETONE, URINE MANUAL NEGATIVE (NEGATIVE); PROTEIN, URINE MANUAL TRACE mg/dL (NEGATIVE); SPECIFIC GRAVITY,URINE MANUAL 1.025 (1.002-1.035)
[2021-11-24 14:07] LABS: BASO # 0.1 10^3/uL (0.0-0.2); BASO % 1.1 % (0.0-1.0); BILIRUBIN, URINE MANUAL NEGATIVE (NEGATIVE); BLOOD URINE MANUAL TRACE (NEGATIVE); EOS # 0.1 10^3/uL (0.0-0.5); GLUCOSE, URINE (UA) MANUAL TRACE(50 MG/DL) mg/dL (NEGATIVE); HEMATOCRIT 39.1 % (36.0-47.0); HEMOGLOBIN 12.3 g/dl (12.0-15.5); LEUKOCYTE ESTERASE, URINE MAN TRACE (NEGATIVE); LYMPH # 1.6 10^3/uL (1.5-5.0); LYMPH % 25.7 % (24.0-44.0); MEAN CORPUSCULAR HEMOGLOBIN 25.1 pg (27.0-33.0); MEAN CORPUSCULAR HGB CONC 31.5 g/dl (32.0-36.5); MEAN CORPUSCULAR VOLUME 79.6 fl (80.0-96.0); MONO # 0.6 10^3/uL (0.0-0.8); MONO % 9.4 % (2.0-8.0); NEUTROPHILS # 3.9 10^3/uL (1.5-8.5); NEUTROPHILS % 61.5 % (36.0-66.0); NITRITE, URINE MANUAL NEGATIVE (NEGATIVE); PLATELET COUNT, AUTOMATED 190 10^3/uL (150-450); RED BLOOD COUNT 4.91 10^6/uL (4.00-5.40); UROBILINOGEN, URINE MANUAL NORMAL (NORMAL); WHITE BLOOD COUNT 6.4 10^3/uL (4.0-10.0)
[2021-11-24 14:32] LABS: SQUAMOUS EPITHELIAL CELL URINE SMALL AMOUNT /hpf (SMALL AMT)
[2021-11-24 14:33] LABS: BACTERIA, URINE MOD AMOUNT
[2021-11-24 14:54] LABS: ALBUMIN 3.6 GM/DL (3.2-5.2); ALT/SGPT 14 U/L (12-78); BILIRUBIN,TOTAL 0.4 MG/DL (0.2-1.0); BLOOD UREA NITROGEN 10 MG/DL (7-18); CALCIUM LEVEL 8.7 MG/DL (8.8-10.2); CARBON DIOXIDE LEVEL 29 MEQ/L (21-32); CHLORIDE LEVEL 104 MEQ/L (98-107); CHOLESTEROL LEVEL 170 MG/DL (<200); CHOLESTEROL RISK RATIO 4.146 (<5); CREATININE FOR GFR 0.75 MG/DL (0.55-1.30); FREE T4 1.07 NG/DL (0.76-1.46); GLOMERULAR FILTRATION RATE > 60.0 (>45); GLUCOSE, FASTING 161 MG/DL (70-100); HDL CHOLESTEROL 41 MG/DL (>40); LDL CHOLESTEROL 91 MG/DL (<100); NON-HDL-C 129 MG/DL; NT-PRO BNP 165 PG/ML (<125); POTASSIUM SERUM 3.4 MEQ/L (3.5-5.1); SODIUM LEVEL 141 MEQ/L (136-145); TOTAL PROTEIN 7.4 GM/DL (6.4-8.2); TRIGLYCERIDES LEVEL 192 MG/DL (<150)
[2021-11-24 14:56] LABS: HEMOGLOBIN A1c 8.9 %
[2021-11-24 14:59] LABS: MALB URINE SIEMENS 64.9 MG/L; MAU/CREAT RATIO 23.9 MCG/MG (0.0-30.0)
[2021-11-24 15:35] LABS: TOTAL 25(OH) VITAMIN D 15.7 NG/ML (30.0-100.0); VITAMIN B12 LEVEL 296 PG/ML (247-911)
== END ==
LOC: M PLALAB 11:16
PROVIDERS: ATTEND Family Medicine
DX: E11.65 Type 2 diabetes mellitus with hyperglycemia (principal)

== ENCOUNTER 2021-11-29 18:54 | Emergency (ER) | payer OTHER ==
[~2021-11-29] VITALS: Ht 167.6 cm; Wt 104.5 kg
[~2021-11-29 18:54] MED LIST changes: -REGL10TA6 PO
[2021-11-29] MEDS ORDERED: ONDANSETRON 4MG 2ML VIAL IV ONE (19:20)
[2021-11-29 19:40] LABS: BASO # 0.1 10^3/uL (0.0-0.2); BASO % 0.7 % (0.0-1.0); EOS # 0.1 10^3/uL (0.0-0.5); HEMATOCRIT 41.7 % (36.0-47.0); MEAN CORPUSCULAR HGB CONC 31.2 g/dl (32.0-36.5); MONO # 0.6 10^3/uL (0.0-0.8); MONO % 8.7 % (2.0-8.0); NEUTROPHILS # 4.2 10^3/uL (1.5-8.5); NEUTROPHILS % 59.5 % (36.0-66.0); PLATELET COUNT, AUTOMATED 202 10^3/uL (150-450); RED BLOOD COUNT 5.21 10^6/uL (4.00-5.40)
[2021-11-29] MEDS: fentaNYL 100 MCG/2 ML INJECTION IV PRN ×4 (20:00→22:55)
[2021-11-29 20:19] LABS: CK-MB VALUE MASS < 1.0 NG/ML (<3.6); CPK CREATINE PHOSPHOKINASE 58 U/L (26-192); MB/CK RELATIVE INDEX 1.72 (< OR =4)
[2021-11-29 20:27] LABS: ALBUMIN 3.5 GM/DL (3.2-5.2); ALT/SGPT 18 U/L (12-78); BILIRUBIN,DIRECT < 0.1 MG/DL (0.0-0.2); BILIRUBIN,TOTAL 0.5 MG/DL (0.2-1.0); BLOOD UREA NITROGEN 11 MG/DL (7-18); CALCIUM LEVEL 8.8 MG/DL (8.8-10.2); CARBON DIOXIDE LEVEL 27 MEQ/L (21-32); CHLORIDE LEVEL 102 MEQ/L (98-107); CREATININE FOR GFR 0.86 MG/DL (0.55-1.30); FREE T4 1.01 NG/DL (0.76-1.46); GLOMERULAR FILTRATION RATE > 60.0 (>45); GLUCOSE, FASTING 211 MG/DL (70-100); LIPASE 109 U/L (73-393); NT-PRO BNP 156 PG/ML (<125); SODIUM LEVEL 134 MEQ/L (136-145); TOTAL PROTEIN 7.9 GM/DL (6.4-8.2)
[2021-11-29] MEDS ORDERED: ISOVUE-370 76% 100ML VIAL As Ordered ONE (21:03)
[2021-11-29 21:58] LABS: CK-MB VALUE MASS < 1.0 NG/ML (<3.6); CPK CREATINE PHOSPHOKINASE 57 U/L (26-192); MB/CK RELATIVE INDEX 1.75 (< OR =4)
[2021-11-29] MEDS ORDERED: GI COCKTAIL 50ML BTL(HYOSCYAMINE/MAALOX/LIDOCAINE VISCOUS)(1:3:1) PO ONE (22:15)
[2021-11-29] MEDS ORDERED: REGL10TA6 PO (23:45)
[2021-11-30] MEDS ORDERED: METOCLOPRAMIDE INJ 10MG/2ML VIAL (J2765 PER 1) IV ONE
[2021-11-30 00:15] VITALS: BP 162/74
== END 2021-11-30 00:18 | disposition home or self-care (01) ==
LOC: EDBD 18:54 → M ED 18:54
DX: R07.9 Chest pain, unspecified (principal); R10.9 Unspecified abdominal pain; R11.0 Nausea; I25.10 Atherosclerotic heart disease of native coronary artery without angina pectoris; E11.9 Type 2 diabetes mellitus without complications; I10 Essential (primary) hypertension; E78.5 Hyperlipidemia, unspecified; F33.9 Major depressive disorder, recurrent, unspecified; M54.50 Low back pain, unspecified; Z90.710 Acquired absence of both cervix and uterus; Z95.9 Presence of cardiac and vascular implant and graft, unspecified; Z88.0 Allergy status to penicillin; Z88.1 Allergy status to other antibiotic agents; Z88.6 Allergy status to analgesic agent; Z88.5 Allergy status to narcotic agent; Z79.4 Long term (current) use of insulin; Z79.899 Other long term (current) drug therapy
CPT/HCPCS: 71045; 71275; 74174; 80048; 80076; 82550; 82553; 83690; 83880; 84439; 84443; 84484; 85025; 93005; 93041; 94760; 96374; 96375; 96376; 99285; J2405; J2765; J3010; Q9967

== ENCOUNTER → 2021-12-21 | Outpatient (CLI) | payer OTHER ==
[~2021-12-21] MED LIST changes: +ONDA4TAB6 PO; +REGL10TA6 PO
== END ==
LOC: M PAIN 14:30
PROVIDERS: ATTEND Anesthesiology
DX: G89.29 Other chronic pain (principal); R10.9 Unspecified abdominal pain; M79.2 Neuralgia and neuritis, unspecified; E66.9 Obesity, unspecified; F32.A Depression, unspecified; E11.9 Type 2 diabetes mellitus without complications; I10 Essential (primary) hypertension; M19.90 Unspecified osteoarthritis, unspecified site; Z79.4 Long term (current) use of insulin; Z79.899 Other long term (current) drug therapy; Z79.891 Long term (current) use of opiate analgesic; Z88.0 Allergy status to penicillin; Z88.5 Allergy status to narcotic agent; Z88.6 Allergy status to analgesic agent; Z88.8 Allergy status to other drugs, medicaments and biological substances; Z68.37 Body mass index [BMI] 37.0-37.9, adult

== ENCOUNTER 2021-12-26 15:49 | Emergency (ER) | payer OTHER, MEDICARE ==
[~2021-12-26 15:49] MED LIST changes: -ONDA4TAB6 PO
[2021-12-26 16:00] VITALS: BP 140/87
[2021-12-26 16:38] LABS: BASO # 0.1 10^3/uL (0.0-0.2); BASO % 0.7 % (0.0-1.0); EOS # 0.2 10^3/uL (0.0-0.5); EOS % 2.2 % (0.0-3.0); HEMATOCRIT 41.3 % (36.0-47.0); HEMOGLOBIN 13.1 g/dl (12.0-15.5); LYMPH % 27.1 % (24.0-44.0); MEAN CORPUSCULAR HEMOGLOBIN 25.2 pg (27.0-33.0); MEAN CORPUSCULAR HGB CONC 31.7 g/dl (32.0-36.5); MEAN CORPUSCULAR VOLUME 79.4 fl (80.0-96.0); MONO # 0.5 10^3/uL (0.0-0.8); MONO % 7.2 % (2.0-8.0); NEUTROPHILS # 4.5 10^3/uL (1.5-8.5); NEUTROPHILS % 62.5 % (36.0-66.0); PLATELET COUNT, AUTOMATED 214 10^3/uL (150-450); WHITE BLOOD COUNT 7.2 10^3/uL (4.0-10.0)
[2021-12-26] MEDS ORDERED: ISOVUE-370 76% 100ML VIAL As Ordered ONE (16:52)
[2021-12-26 17:04] LABS: RSV AMPLIFICATION NEGATIVE (NEGATIVE)
[2021-12-26 17:15] LABS: ALBUMIN 3.8 GM/DL (3.2-5.2); BILIRUBIN,DIRECT 0.1 MG/DL (0.0-0.2); BILIRUBIN,TOTAL 0.4 MG/DL (0.2-1.0); TOTAL PROTEIN 7.7 GM/DL (6.4-8.2)
[2021-12-26] MEDS ORDERED: NS 500 ML IV ONE (17:40)
[2021-12-26] MEDS ORDERED: ONDANSETRON 4MG 2ML VIAL IV ONE (17:40)
[2021-12-26] MEDS: MORPHINE 2 MG/ML 1ML VIAL IV PRN ×2 (17:49→19:23)
[2021-12-26] MEDS ORDERED: ONDA4TAB6 PO (19:39)
[2021-12-26] MEDS ORDERED: NORCO 5/325MG TABLET (HOME DOSE PACK) PO ONE (19:45)
== END 2021-12-26 20:21 | disposition home or self-care (01) ==
LOC: M ED 15:49 → EDBD 15:49 → M ED 20:21
DX: R10.30 Lower abdominal pain, unspecified (principal); R19.7 Diarrhea, unspecified; I25.10 Atherosclerotic heart disease of native coronary artery without angina pectoris; E11.9 Type 2 diabetes mellitus without complications; Z98.0 Intestinal bypass and anastomosis status; K43.9 Ventral hernia without obstruction or gangrene; I10 Essential (primary) hypertension; E78.5 Hyperlipidemia, unspecified; Z88.0 Allergy status to penicillin; Z88.1 Allergy status to other antibiotic agents; Z88.8 Allergy status to other drugs, medicaments and biological substances; Z88.6 Allergy status to analgesic agent; Z90.710 Acquired absence of both cervix and uterus; Z90.89 Acquired absence of other organs; Z79.4 Long term (current) use of insulin; Z79.84 Long term (current) use of oral hypoglycemic drugs; Z79.899 Other long term (current) drug therapy
CPT/HCPCS: 71045; 74177; 80047; 80076; 83605; 83690; 85025; 87631; 93041; 96361; 96374; 96375; 96376; 99284; J2270; J2405; Q9967

== ENCOUNTER 2022-02-05 21:50 | Emergency (ER) | payer OTHER ==
[~2022-02-05] VITALS: Ht 167.6 cm; Wt 99.1 kg
[~2022-02-05 21:50] MED LIST changes: +ONDA4TAB6 PO
[2022-02-05 22:05] VITALS: BP 156/79
[2022-02-05] MEDS ORDERED: ONDANSETRON 4MG 2ML VIAL IV ONE (22:35)
[2022-02-05] MEDS ORDERED: fentaNYL 100 MCG/2 ML INJECTION IV ONE (22:35)
[2022-02-05 22:37] LABS: BASO # 0.1 10^3/uL (0.0-0.2); BASO % 0.7 % (0.0-1.0); EOS # 0.2 10^3/uL (0.0-0.5); EOS % 2.7 % (0.0-3.0); HEMATOCRIT 38.9 % (36.0-47.0); HEMOGLOBIN 12.5 g/dl (12.0-15.5); LYMPH # 2.1 10^3/uL (1.5-5.0); LYMPH % 28.1 % (24.0-44.0); MEAN CORPUSCULAR HEMOGLOBIN 25.6 pg (27.0-33.0); MEAN CORPUSCULAR HGB CONC 32.1 g/dl (32.0-36.5); MEAN CORPUSCULAR VOLUME 79.7 fl (80.0-96.0); MONO # 0.6 10^3/uL (0.0-0.8); MONO % 7.7 % (2.0-8.0); NEUTROPHILS # 4.5 10^3/uL (1.5-8.5); NEUTROPHILS % 60.7 % (36.0-66.0); PLATELET COUNT, AUTOMATED 182 10^3/uL (150-450); RED BLOOD COUNT 4.88 10^6/uL (4.00-5.40); WHITE BLOOD COUNT 7.4 10^3/uL (4.0-10.0)
[2022-02-05 22:49] LABS: INR 0.9; PROTHROMBIN TIME 12.3 SECONDS (12.5-14.5)
[2022-02-05 22:53] LABS: LIPASE 33 U/L (12-53)
[2022-02-05 22:55] LABS: AMYLASE 26 U/L (30-118)
[2022-02-05 22:56] LABS: BILIRUBIN,DIRECT < 0.1 MG/DL (<0.4); CK-MB VALUE MASS < 1.0 NG/ML (<3.6)
[2022-02-05 23:00] LABS: ALBUMIN 3.5 G/DL (3.2-5.2); ALKALINE PHOSPHATASE 162 U/L (46-116); ALT/SGPT 11 U/L (7.0-40); AST/SGOT 14 U/L (<34); BILIRUBIN,TOTAL 0.4 MG/DL (0.3-1.2); BLOOD UREA NITROGEN 16 MG/DL (9-23); CALCIUM LEVEL 8.6 MG/DL (8.3-10.6); CARBON DIOXIDE LEVEL 20 MMOL/L (20-31); CHLORIDE LEVEL 98 MMOL/L (98-107); CPK CREATINE PHOSPHOKINASE 34 U/L (34-145); CREATININE FOR GFR 0.64 MG/DL (0.55-1.30); GLOMERULAR FILTRATION RATE > 60.0 (>45); GLUCOSE, FASTING 354 MG/DL (74-106); MB/CK RELATIVE INDEX 2.94 (< OR =4); POTASSIUM SERUM 3.9 MMOL/L (3.5-5.1); SODIUM LEVEL 133 MMOL/L (136-145); TOTAL PROTEIN 7.2 G/DL (5.7-8.2)
[2022-02-05] MEDS ORDERED: ISOVUE-370 76% 100ML VIAL As Ordered ONE (23:17)
[2022-02-06 00:30] LABS: CK-MB VALUE MASS < 1.0 NG/ML (<3.6)
[2022-02-06 00:38] LABS: CPK CREATINE PHOSPHOKINASE 32 U/L (34-145); MB/CK RELATIVE INDEX 3.12 (< OR =4)
[2022-02-06] MEDS ORDERED: HYDROMORPHONE HCL 0.5 MG/ 0.5 ML SYRINGE (J1170 PER 1) IV PRN (00:40)
[2022-02-06] MEDS ORDERED: OXYCODONE/APAP 5MG/325MG(HOME DOSE PACK) PO ONE (01:10)
== END 2022-02-06 01:45 | disposition home or self-care (01) ==
LOC: EDBD 21:50 → M ED 21:50
DX: U07.1 COVID-19 (principal); R10.9 Unspecified abdominal pain; E11.9 Type 2 diabetes mellitus without complications; I11.0 Hypertensive heart disease with heart failure; I50.9 Heart failure, unspecified; D86.9 Sarcoidosis, unspecified; Z90.89 Acquired absence of other organs; Z90.710 Acquired absence of both cervix and uterus; Z88.0 Allergy status to penicillin; Z88.1 Allergy status to other antibiotic agents; Z88.6 Allergy status to analgesic agent; Z88.8 Allergy status to other drugs, medicaments and biological substances; Z79.4 Long term (current) use of insulin; Z79.899 Other long term (current) drug therapy
CPT/HCPCS: 71275; 74177; 80048; 80076; 82150; 82550; 82553; 83605; 83690; 84484; 85025; 85610; 86850; 86900; 86901; 87040; 87486; 87581; 87633; 87798; 93005; 93041; 96374; 96375; 99284; J1170; J2405; J3010; Q9967

== ENCOUNTER → 2022-03-17 | Outpatient (CLI) | payer OTHER ==
[~2022-03-17] MED LIST changes: +DIPH-435; -DIPH25CA32
== END ==
LOC: M PAIN 10:45
PROVIDERS: ATTEND Anesthesiology
DX: R10.9 Unspecified abdominal pain (principal); M79.2 Neuralgia and neuritis, unspecified; E11.9 Type 2 diabetes mellitus without complications; I10 Essential (primary) hypertension; Z86.59 Personal history of other mental and behavioral disorders; Z88.0 Allergy status to penicillin; Z88.5 Allergy status to narcotic agent; Z88.6 Allergy status to analgesic agent; Z88.8 Allergy status to other drugs, medicaments and biological substances; Z79.4 Long term (current) use of insulin; Z79.84 Long term (current) use of oral hypoglycemic drugs; Z79.85 Long-term (current) use of injectable non-insulin antidiabetic drugs; Z79.899 Other long term (current) drug therapy

== ENCOUNTER 2022-04-18 18:55 | Emergency (ER) | payer OTHER ==
[~2022-04-18] VITALS: Ht 167.6 cm; Wt 96.4 kg
[2022-04-18] MEDS: NITROGLYCERIN 0.4MG SUBL TABLET SL PRN ×3 (19:44→20:02)
[2022-04-18 19:53] LABS: BASO # 0.1 10^3/uL (0.0-0.2); BASO % 0.6 % (0.0-1.0); EOS # 0.2 10^3/uL (0.0-0.5); EOS % 1.8 % (0.0-3.0); HEMATOCRIT 42.6 % (36.0-47.0); HEMOGLOBIN 13.5 g/dl (12.0-15.5); LYMPH # 2.4 10^3/uL (1.5-5.0); LYMPH % 28.4 % (24.0-44.0); MEAN CORPUSCULAR HEMOGLOBIN 26.4 pg (27.0-33.0); MEAN CORPUSCULAR HGB CONC 31.7 g/dl (32.0-36.5); MEAN CORPUSCULAR VOLUME 83.2 fl (80.0-96.0); MONO # 0.6 10^3/uL (0.0-0.8); MONO % 6.8 % (2.0-8.0); NEUTROPHILS # 5.2 10^3/uL (1.5-8.5); NEUTROPHILS % 62.2 % (36.0-66.0); PLATELET COUNT, AUTOMATED 218 10^3/uL (150-450); RED BLOOD COUNT 5.12 10^6/uL (4.00-5.40); WHITE BLOOD COUNT 8.3 10^3/uL (4.0-10.0)
[2022-04-18 20:02] VITALS: BP 137/62
[2022-04-18 20:21] LABS: LIPASE 43 U/L (12-53)
[2022-04-18 20:22] LABS: CK-MB VALUE MASS < 1.0 NG/ML (<3.6)
[2022-04-18 20:24] LABS: ALKALINE PHOSPHATASE 126 U/L (46-116); ALT/SGPT 18 U/L (7.0-40); AST/SGOT 21 U/L (<34); BILIRUBIN,DIRECT 0.2 MG/DL (<0.4); BILIRUBIN,TOTAL 0.4 MG/DL (0.3-1.2); BLOOD UREA NITROGEN 9 MG/DL (9-23); CALCIUM LEVEL 9.4 MG/DL (8.3-10.6); CARBON DIOXIDE LEVEL 28 MMOL/L (20-31); CHLORIDE LEVEL 100 MMOL/L (98-107); CREATININE FOR GFR 0.72 MG/DL (0.55-1.30); GLOMERULAR FILTRATION RATE > 60.0 (>45); GLUCOSE, FASTING 148 MG/DL (74-106); POTASSIUM SERUM 3.9 MMOL/L (3.5-5.1); SODIUM LEVEL 136 MMOL/L (136-145); TOTAL PROTEIN 7.6 G/DL (5.7-8.2)
[2022-04-18 20:25] LABS: CPK CREATINE PHOSPHOKINASE 30 U/L (34-145); MB/CK RELATIVE INDEX 3.33 (< OR =4)
[2022-04-18] MEDS ORDERED: ISOVUE-370 76% 100ML VIAL As Ordered ONE ×2 (20:45→22:39)
[2022-04-18] MEDS ORDERED: ACETAMINOPHEN TAB 650MG DOSE (2X325MG) PO ONE (20:50)
[2022-04-18 21:09] LABS: CK-MB VALUE MASS < 1.0 NG/ML (<3.6)
[2022-04-18 21:10] LABS: CPK CREATINE PHOSPHOKINASE 30 U/L (34-145); MB/CK RELATIVE INDEX 3.33 (< OR =4)
[2022-04-18] MEDS ORDERED: oxyCODONE 5MG TAB PO ONE (23:10)
[2022-04-19 00:59] VITALS: BP 127/66
== END 2022-04-19 01:02 | disposition home or self-care (01) ==
LOC: M ED 18:55 → EDBD 18:55 → M ED 04-19 01:02
DX: R07.9 Chest pain, unspecified (principal); E11.9 Type 2 diabetes mellitus without complications; I10 Essential (primary) hypertension; M54.50 Low back pain, unspecified; Z88.0 Allergy status to penicillin; Z88.6 Allergy status to analgesic agent; Z88.8 Allergy status to other drugs, medicaments and biological substances; Z79.4 Long term (current) use of insulin; Z79.899 Other long term (current) drug therapy; Z79.82 Long term (current) use of aspirin; Z79.02 Long term (current) use of antithrombotics/antiplatelets
CPT/HCPCS: 36415; 71045; 71275; 74177; 80048; 80076; 82550; 82553; 83690; 84484; 85025; 93005; 93041; 94760; 99285; Q9967

== ENCOUNTER → 2022-05-17 | Outpatient (CLI) | payer OTHER ==
[2022-05-17 16:00] LABS: APPEARANCE, URINE MANUAL CLEAR (CLEAR); BILIRUBIN, URINE MANUAL NEGATIVE (NEGATIVE); BLOOD URINE MANUAL POSITIVE (NEGATIVE); COLOR, URINE MANUAL YELLOW (YELLOW); GLUCOSE, URINE (UA) MANUAL 4+(1000 MG/DL) mg/dL (NEGATIVE); KETONE, URINE MANUAL NEGATIVE (NEGATIVE); LEUKOCYTE ESTERASE, URINE MAN POSITIVE (NEGATIVE); NITRITE, URINE MANUAL NEGATIVE (NEGATIVE); PROTEIN, URINE MANUAL NEGATIVE (NEGATIVE); UROBILINOGEN, URINE MANUAL NORMAL (NORMAL)
[2022-05-17 16:02] LABS: BACTERIA, URINE SMALL AMOUNT; HYALINE CAST, URINE NONE SEEN /lpf (0-1); RBC, URINE 0-1 /hpf (0-3); SQUAMOUS EPITHELIAL CELL URINE SMALL AMOUNT /hpf (SMALL AMT); YEAST, URINE SMALL AMOUNT
[2022-05-17 16:06] LABS: BASO # 0.1 10^3/uL (0.0-0.2); BASO % 0.7 % (0.0-1.0); EOS # 0.2 10^3/uL (0.0-0.5); EOS % 2.1 % (0.0-3.0); HEMATOCRIT 40.2 % (36.0-47.0); HEMOGLOBIN 12.8 g/dl (12.0-15.5); LYMPH # 1.9 10^3/uL (1.5-5.0); LYMPH % 24.6 % (24.0-44.0); MEAN CORPUSCULAR HEMOGLOBIN 26.9 pg (27.0-33.0); MEAN CORPUSCULAR HGB CONC 31.8 g/dl (32.0-36.5); MEAN CORPUSCULAR VOLUME 84.5 fl (80.0-96.0); MONO # 0.5 10^3/uL (0.0-0.8); MONO % 6.4 % (2.0-8.0); NEUTROPHILS % 65.8 % (36.0-66.0); PLATELET COUNT, AUTOMATED 190 10^3/uL (150-450); RED BLOOD COUNT 4.76 10^6/uL (4.00-5.40); WHITE BLOOD COUNT 7.6 10^3/uL (4.0-10.0)
[2022-05-17 16:25] LABS: HEMOGLOBIN A1c 6.4 % (4.0-6.0)
[2022-05-17 16:41] LABS: FREE T4 0.97 NG/DL (0.89-1.76)
[2022-05-17 16:42] LABS: ALBUMIN 3.8 G/DL (3.2-5.2); ALKALINE PHOSPHATASE 117 U/L (46-116); ALT/SGPT 14 U/L (7.0-40); AST/SGOT 13 U/L (<34); BILIRUBIN,TOTAL 0.4 MG/DL (0.3-1.2); BLOOD UREA NITROGEN 13 MG/DL (9-23); CALCIUM LEVEL 8.9 MG/DL (8.3-10.6); CARBON DIOXIDE LEVEL 27 MMOL/L (20-31); CHLORIDE LEVEL 102 MMOL/L (98-107); CHOLESTEROL LEVEL 109 MG/DL (<200); CHOLESTEROL RISK RATIO 2.84 (<5); CREATININE FOR GFR 0.59 MG/DL (0.55-1.30); GLOMERULAR FILTRATION RATE > 60.0 (>45); GLUCOSE, FASTING 141 MG/DL (74-106); HDL CHOLESTEROL 38.3 MG/DL (>40); LDL CHOLESTEROL 35.9 MG/DL (<100); NON-HDL-C 70.7 MG/DL; POTASSIUM SERUM 4.1 MMOL/L (3.5-5.1); SODIUM LEVEL 138 MMOL/L (136-145); TOTAL PROTEIN 7.1 G/DL (5.7-8.2); TRIGLYCERIDES LEVEL 174 MG/DL (<150)
[2022-05-17 16:43] LABS: TOTAL 25(OH) VITAMIN D 20.8 NG/ML (20.0-100.0)
[2022-05-17 17:12] LABS: CREATININE, URINE 50.7 MG/DL; MAU/CREAT RATIO 7.8 MCG/MG (0.0-30.0)
== END ==
LOC: M LAB 12:59
PROVIDERS: ATTEND Family Medicine
DX: E11.65 Type 2 diabetes mellitus with hyperglycemia (principal)

== ENCOUNTER → 2022-05-25 | Outpatient (CLI) | payer OTHER | LOC: M PAIN 11:00 | PROVIDERS: ATTEND Anesthesiology | DX: G89.29 Other chronic pain (principal); R10.9 Unspecified abdominal pain; M79.2 Neuralgia and neuritis, unspecified; E66.9 Obesity, unspecified; Z68.35 Body mass index [BMI] 35.0-35.9, adult; F32.A Depression, unspecified; E11.9 Type 2 diabetes mellitus without complications; I10 Essential (primary) hypertension; M15.9 Polyosteoarthritis, unspecified; Z79.891 Long term (current) use of opiate analgesic; Z79.4 Long term (current) use of insulin; Z79.899 Other long term (current) drug therapy; Z88.0 Allergy status to penicillin; Z88.5 Allergy status to narcotic agent; Z88.6 Allergy status to analgesic agent; Z88.8 Allergy status to other drugs, medicaments and biological substances ==

== ENCOUNTER → 2022-08-25 | Outpatient (CLI) | payer OTHER | LOC: M PAIN 08:45 | PROVIDERS: ATTEND Nurse Practitioner Family | DX: R10.30 Lower abdominal pain, unspecified (principal); Z79.891 Long term (current) use of opiate analgesic; E66.9 Obesity, unspecified; F32.A Depression, unspecified; E11.9 Type 2 diabetes mellitus without complications; I10 Essential (primary) hypertension; M19.90 Unspecified osteoarthritis, unspecified site; G89.29 Other chronic pain; Z79.4 Long term (current) use of insulin; Z79.899 Other long term (current) drug therapy; Z88.0 Allergy status to penicillin; Z88.5 Allergy status to narcotic agent; Z88.6 Allergy status to analgesic agent; Z88.8 Allergy status to other drugs, medicaments and biological substances ==

== ENCOUNTER 2022-11-28 19:24 | Emergency (ER) | payer OTHER ==
[~2022-11-28] VITALS: Ht 167.6 cm; Wt 100.0 kg
[~2022-11-28 19:24] MED LIST changes: -PREG75CA2; +PREG75CA3
[2022-11-28] MEDS: NITROGLYCERIN 0.4MG SUBL TABLET SL PRN ×2 (20:05→20:55)
[2022-11-28 20:19] LABS: BASO # 0.1 10^3/uL (0.0-0.2); BASO % 0.8 % (0.0-1.0); EOS # 0.2 10^3/uL (0.0-0.5); EOS % 2.6 % (0.0-3.0); HEMATOCRIT 37.8 % (36.0-47.0); HEMOGLOBIN 12.5 g/dl (12.0-15.5); LYMPH # 2.8 10^3/uL (1.5-5.0); LYMPH % 37.3 % (24.0-44.0); MEAN CORPUSCULAR HEMOGLOBIN 27.2 pg (27.0-33.0); MEAN CORPUSCULAR HGB CONC 33.1 g/dl (32.0-36.5); MEAN CORPUSCULAR VOLUME 82.2 fl (80.0-96.0); MONO # 0.6 10^3/uL (0.0-0.8); MONO % 8.1 % (2.0-8.0); NEUTROPHILS # 3.8 10^3/uL (1.5-8.5); NEUTROPHILS % 51.1 % (36.0-66.0); PLATELET COUNT, AUTOMATED 202 10^3/uL (150-450); WHITE BLOOD COUNT 7.4 10^3/uL (4.0-10.0)
[2022-11-28 20:31] LABS: INR 0.92; PARTIAL THROMBOPLASTIN TIME 24.8 SECONDS (24.8-34.2)
[2022-11-28 20:32] LABS: LIPASE 60 U/L (12-53)
[2022-11-28 20:33] LABS: CK-MB VALUE MASS < 1.0 NG/ML (<3.6)
[2022-11-28 20:35] LABS: ALBUMIN 3.9 G/DL (3.2-5.2); ALKALINE PHOSPHATASE 119 U/L (46-116); ALT/SGPT 19 U/L (7.0-40); AST/SGOT 13 U/L (<34); BILIRUBIN,DIRECT 0.2 MG/DL (<0.4); BILIRUBIN,TOTAL 0.3 MG/DL (0.3-1.2); BLOOD UREA NITROGEN 16 MG/DL (9-23); CALCIUM LEVEL 9.2 MG/DL (8.3-10.6); CARBON DIOXIDE LEVEL 29 MMOL/L (20-31); CHLORIDE LEVEL 102 MMOL/L (98-107); CPK CREATINE PHOSPHOKINASE 33 U/L (34-145); CREATININE FOR GFR 1.06 MG/DL (0.55-1.30); GLUCOSE, FASTING 167 MG/DL (74-106); MB/CK RELATIVE INDEX 3.03 (< OR =4); POTASSIUM SERUM 4.5 MMOL/L (3.5-5.1); SODIUM LEVEL 137 MMOL/L (136-145); TOTAL PROTEIN 7.2 G/DL (5.7-8.2)
[2022-11-28 20:36] LABS: THYROID STIMULATING HORMONE 6.076 uIU/ML (0.55-4.78)
[2022-11-28 20:37] LABS: FREE T4 1.18 NG/DL (0.89-1.76)
[2022-11-28] MEDS ORDERED: ISOVUE-370 76% 100ML VIAL As Ordered ONE (20:40)
[2022-11-28 20:55] VITALS: BP 177/98
[2022-11-28 21:54] LABS: CK-MB VALUE MASS < 1.0 NG/ML (<3.6)
[2022-11-28 21:55] LABS: CPK CREATINE PHOSPHOKINASE 36 U/L (34-145); MB/CK RELATIVE INDEX 2.77 (< OR =4)
[2022-11-28] MEDS ORDERED: PERCOCET 5MG/325MG TAB PO ONE (22:00)
[2022-11-28 23:20] VITALS: BP 154/84; TEMP 97.5
[2022-11-28 23:38] VITALS: O2SAT 99
== END 2022-11-28 23:59 | disposition home or self-care (01) ==
LOC: M ED 19:24
DX: R07.9 Chest pain, unspecified (principal); R10.9 Unspecified abdominal pain; E11.9 Type 2 diabetes mellitus without complications; I10 Essential (primary) hypertension; E66.9 Obesity, unspecified; F32.A Depression, unspecified; Z88.0 Allergy status to penicillin; Z88.1 Allergy status to other antibiotic agents; Z88.5 Allergy status to narcotic agent; Z88.6 Allergy status to analgesic agent; Z88.8 Allergy status to other drugs, medicaments and biological substances; Z79.899 Other long term (current) drug therapy
CPT/HCPCS: 36415; 71275; 74177; 80048; 80076; 82550; 82553; 83690; 84439; 84443; 84484; 85025; 85610; 85730; 93041; 94760; 99285; Q9967

== ENCOUNTER → 2022-12-13 | Outpatient (CLI) | payer OTHER ==
[2022-12-13 10:02] LABS: HEMATOCRIT 40.9 % (36.0-47.0); MEAN CORPUSCULAR HEMOGLOBIN 26.6 pg (27.0-33.0); MEAN CORPUSCULAR HGB CONC 31.8 g/dl (32.0-36.5); MEAN CORPUSCULAR VOLUME 83.8 fl (80.0-96.0); PLATELET COUNT, AUTOMATED 207 10^3/uL (150-450); RED BLOOD COUNT 4.88 10^6/uL (4.00-5.40); WHITE BLOOD COUNT 7.1 10^3/uL (4.0-10.0)
[2022-12-13 10:21] LABS: LIPASE 41 U/L (12-53)
[2022-12-13 10:22] LABS: C REACTIVE PROTEIN QUANTITATIV < 0.40 MG/DL (<1.0)
[2022-12-13 10:23] LABS: RHEUMATOID FACTOR QUANT 4.7 IU/ML (<14)
[2022-12-13 10:24] LABS: ALBUMIN 3.9 G/DL (3.2-5.2); ALKALINE PHOSPHATASE 104 U/L (46-116); ALT/SGPT 11 U/L (7.0-40); AST/SGOT 12 U/L (<34); BILIRUBIN,TOTAL 0.6 MG/DL (0.3-1.2); BLOOD UREA NITROGEN 11 MG/DL (9-23); CALCIUM LEVEL 9.2 MG/DL (8.3-10.6); CARBON DIOXIDE LEVEL 31 MMOL/L (20-31); CHLORIDE LEVEL 98 MMOL/L (98-107); CREATININE FOR GFR 0.75 MG/DL (0.55-1.30); GLOMERULAR FILTRATION RATE > 60.0 (>45); GLUCOSE, FASTING 127 MG/DL (74-106); SODIUM LEVEL 137 MMOL/L (136-145); TOTAL PROTEIN 7.3 G/DL (5.7-8.2)
[2022-12-13 10:31] LABS: ERYTHROCYTE SEDIMENTATION RATE 34 mm/hr (0-30)
[2022-12-14 19:07] LABS: ANTINUCLEAR ANTIBODIES DIRECT Negative (Negative); CYCLIC CITRULLINATED PEPTIDE 6 units (0-19); IMMUNOTYPING SERUM IGA SO 279 mg/dL (87-352); IMMUNOTYPING SERUM IGM SO 48 mg/dL (26-217); SJOGREN'S ANTI SS-A <0.2 AI (0.0-0.9); SJOGREN'S ANTI SS-B <0.2 AI (0.0-0.9)
== END ==
LOC: M LAB 08:46
PROVIDERS: ATTEND Family Medicine
DX: R10.9 Unspecified abdominal pain (principal)

== ENCOUNTER → 2022-12-29 | Outpatient (CLI) | payer OTHER | LOC: M PAIN 10:45 | PROVIDERS: ATTEND Nurse Practitioner Family | DX: R10.30 Lower abdominal pain, unspecified (principal); Z79.891 Long term (current) use of opiate analgesic; D36.15 Benign neoplasm of peripheral nerves and autonomic nervous system of abdomen; Z79.4 Long term (current) use of insulin; Z79.899 Other long term (current) drug therapy; E11.9 Type 2 diabetes mellitus without complications; Z88.0 Allergy status to penicillin; Z88.5 Allergy status to narcotic agent; Z88.6 Allergy status to analgesic agent; Z88.8 Allergy status to other drugs, medicaments and biological substances ==

== ENCOUNTER → 2023-05-01 | Outpatient (CLI) | payer OTHER ==
[2023-05-01 10:43] LABS: BASO % 0.6 % (0.0-1.0); EOS # 0.1 10^3/uL (0.0-0.5); EOS % 1.6 % (0.0-3.0); HEMATOCRIT 40.4 % (36.0-47.0); HEMOGLOBIN 12.9 g/dl (12.0-15.5); LYMPH # 1.8 10^3/uL (1.5-5.0); LYMPH % 27.7 % (24.0-44.0); MEAN CORPUSCULAR HEMOGLOBIN 27.4 pg (27.0-33.0); MEAN CORPUSCULAR HGB CONC 31.9 g/dl (32.0-36.5); MEAN CORPUSCULAR VOLUME 85.8 fl (80.0-96.0); MONO # 0.4 10^3/uL (0.0-0.8); MONO % 6.5 % (2.0-8.0); NEUTROPHILS % 63.4 % (36.0-66.0); PLATELET COUNT, AUTOMATED 211 10^3/uL (150-450); RED BLOOD COUNT 4.71 10^6/uL (4.00-5.40); WHITE BLOOD COUNT 6.4 10^3/uL (4.0-10.0)
[2023-05-01 10:45] LABS: APPEARANCE, URINE HAZY (CLEAR); BACTERIA, URINE AUTO NEGATIVE (NEGATIVE); BILIRUBIN, URINE AUTO NEGATIVE (NEGATIVE); BLOOD, URINE BLOOD NEGATIVE (NEGATIVE); COLOR, URINE YELLOW (YELLOW); GLUCOSE, URINE (UA) AUTO 3+ mg/dL (NEGATIVE); KETONE, URINE AUTO NEGATIVE (NEGATIVE); LEUKOCYTE ESTERASE, URINE AUTO 3+ (NEGATIVE); NITRITE, URINE AUTO NEGATIVE (NEGATIVE); PROTEIN, URINE AUTO NEGATIVE (NEGATIVE); RBC, URINE AUTO 1 /HPF (0-3); SPECIFIC GRAVITY URINE AUTO 1.027 (1.002-1.035); SQUAMOUS EPITHELIAL CELL UR AU 4 /HPF (0-6); WBC, URINE AUTO 59 /HPF (0-3)
[2023-05-01 11:13] LABS: HEMOGLOBIN A1c 6.4 % (4.0-6.0)
[2023-05-01 11:14] LABS: MAU/CREAT RATIO 2.6 MCG/MG (0.0-30.0)
[2023-05-01 11:15] LABS: ALBUMIN 4.1 G/DL (3.2-5.2); ALKALINE PHOSPHATASE 86 U/L (46-116); ALT/SGPT 14 U/L (7.0-40); AST/SGOT 14 U/L (<34); BILIRUBIN,TOTAL 0.4 MG/DL (0.3-1.2); BLOOD UREA NITROGEN 11 MG/DL (9-23); CALCIUM LEVEL 9.3 MG/DL (8.3-10.6); CARBON DIOXIDE LEVEL 29 MMOL/L (20-31); CHLORIDE LEVEL 101 MMOL/L (98-107); CHOLESTEROL LEVEL 102 MG/DL (<200); CHOLESTEROL RISK RATIO 2.33 (<5); CREATININE FOR GFR 0.68 MG/DL (0.55-1.30); GLOMERULAR FILTRATION RATE > 60.0 (>45); GLUCOSE, FASTING 93 MG/DL (74-106); HDL CHOLESTEROL 43.7 MG/DL (>40); LDL CHOLESTEROL 33.1 MG/DL (<100); NON-HDL-C 58.3 MG/DL; POTASSIUM SERUM 4.2 MMOL/L (3.5-5.1); SODIUM LEVEL 137 MMOL/L (136-145); TOTAL PROTEIN 7.4 G/DL (5.7-8.2); TRIGLYCERIDES LEVEL 126 MG/DL (<150)
[2023-05-01 11:18] LABS: TOTAL 25(OH) VITAMIN D 86.5 NG/ML (20.0-100.0)
[2023-05-01 11:19] LABS: VITAMIN B12 LEVEL 315 PG/ML (211-911)
== END ==
LOC: M LAB 09:15
PROVIDERS: ATTEND Family Medicine
DX: E11.65 Type 2 diabetes mellitus with hyperglycemia (principal)

== ENCOUNTER → 2023-05-28 | Outpatient (CLI) | payer OTHER ==
[~2023-05-28] MED LIST changes: +FLUO-290 PO; -FLUO10CA18 PO
== END ==
LOC: M PAIN 14:00
PROVIDERS: ATTEND Nurse Practitioner Family
DX: Z79.891 Long term (current) use of opiate analgesic (principal); R10.30 Lower abdominal pain, unspecified; G89.29 Other chronic pain; I10 Essential (primary) hypertension; Z79.4 Long term (current) use of insulin; Z79.899 Other long term (current) drug therapy; Z88.0 Allergy status to penicillin; Z88.1 Allergy status to other antibiotic agents; Z88.5 Allergy status to narcotic agent; Z88.6 Allergy status to analgesic agent; Z88.8 Allergy status to other drugs, medicaments and biological substances

== ENCOUNTER → 2023-07-18 | Outpatient (CLI) | payer OTHER ==
[~2023-07-18] MED LIST changes: +ONDA-282 PO; -ONDA4TAB6 PO
[2023-07-18 13:08] LABS: BASO # 0.1 10^3/uL (0.0-0.2); BASO % 1.1 % (0.0-1.0); EOS # 0.1 10^3/uL (0.0-0.5); EOS % 2.5 % (0.0-3.0); HEMATOCRIT 41.2 % (36.0-47.0); HEMOGLOBIN 13.1 g/dl (12.0-15.5); LYMPH # 1.5 10^3/uL (1.5-5.0); LYMPH % 26.4 % (24.0-44.0); MEAN CORPUSCULAR HEMOGLOBIN 27.1 pg (27.0-33.0); MEAN CORPUSCULAR HGB CONC 31.8 g/dl (32.0-36.5); MEAN CORPUSCULAR VOLUME 85.3 fl (80.0-96.0); MONO # 0.4 10^3/uL (0.0-0.8); MONO % 7.2 % (2.0-8.0); NEUTROPHILS # 3.5 10^3/uL (1.5-8.5); NEUTROPHILS % 62.6 % (36.0-66.0); PLATELET COUNT, AUTOMATED 200 10^3/uL (150-450); RED BLOOD COUNT 4.83 10^6/uL (4.00-5.40); WHITE BLOOD COUNT 5.5 10^3/uL (4.0-10.0)
[2023-07-18 15:10] LABS: VITAMIN B12 LEVEL 333 PG/ML (211-911)
[2023-07-18 15:12] LABS: FOLATE 21.1 NG/ML (>5.4)
[2023-07-18 15:13] LABS: THYROID STIMULATING HORMONE 1.822 uIU/ML (0.55-4.78)
[2023-07-18 15:14] LABS: ALBUMIN 4.1 G/DL (3.2-5.2); ALKALINE PHOSPHATASE 95 U/L (46-116); ALT/SGPT 23 U/L (7.0-40); AST/SGOT 15 U/L (<34); BILIRUBIN,TOTAL 0.5 MG/DL (0.3-1.2); BLOOD UREA NITROGEN 12 MG/DL (9-23); CALCIUM LEVEL 9.6 MG/DL (8.3-10.6); CARBON DIOXIDE LEVEL 27 MMOL/L (20-31); CHLORIDE LEVEL 104 MMOL/L (98-107); CREATININE FOR GFR 0.71 MG/DL (0.55-1.30); GLOMERULAR FILTRATION RATE > 60.0 (>45); GLUCOSE, FASTING 168 MG/DL (74-106); POTASSIUM SERUM 4.1 MMOL/L (3.5-5.1); SODIUM LEVEL 139 MMOL/L (136-145); TOTAL PROTEIN 7.3 G/DL (5.7-8.2)
[2023-07-18 17:01] LABS: HEMOGLOBIN A1c 7.1 % (4.0-6.0)
[2023-07-24 17:09] LABS: ALBUMIN SPEP 3.7 g/dL (2.9-4.4); ALPHA-1-GLOBULINS SO 0.2 g/dL (0.0-0.4); BETA-GLOBULIN SO 1.2 g/dL (0.7-1.3); CERULOPLASMIN 27.6 mg/dL (19.0-39.0); COPPER PLASMAX 120 ug/dL (80-158); LEAD BLOOD ADULTX <1.0 ug/dL (0.0-3.4); MERCURY LEVELX 4.5 ug/L (0.0-14.9); T P ELECTROPHORESIS SO 7.1 g/dL (6.0-8.5); VITAMIN B1 LEVEL WHOLE BLOODX 118.6 nmol/L (66.5-200.0); VITAMIN B6,PYRIDOXAL PHOSPHATE 10.8 ug/L (3.4-65.2); VITAMIN E(ALPHA TOCOPHEROL)X 7.1 mg/L (9.0-29.0); VITAMIN E(GAMMA TOCOPHEROL) 1.1 mg/L (0.5-4.9)
== END ==
LOC: M PLALAB 09:26
PROVIDERS: ATTEND Psychiatry & Neurology Neurology
DX: R25.1 Tremor, unspecified (principal); Z79.899 Other long term (current) drug therapy; T56.91XA Toxic effect of unspecified metal, accidental (unintentional), initial encounter

== ENCOUNTER → 2023-07-20 | Outpatient (CLI) | payer OTHER ==
[~2023-07-20] MED LIST changes: -ONDA-282 PO; +ONDA4TAB6 PO
== END ==
LOC: M LAB 10:32
PROVIDERS: ATTEND Psychiatry & Neurology Neurology
DX: R25.1 Tremor, unspecified (principal)

== ENCOUNTER → 2023-07-30 | Outpatient (CLI) | payer OTHER ==
[~2023-07-30] MED LIST changes: +ONDA-282 PO; -ONDA4TAB6 PO
== END ==
LOC: M PAIN 10:00
PROVIDERS: ATTEND Nurse Practitioner Family
DX: R10.30 Lower abdominal pain, unspecified (principal); Z79.891 Long term (current) use of opiate analgesic; G89.29 Other chronic pain; E66.9 Obesity, unspecified; Z68.36 Body mass index [BMI] 36.0-36.9, adult; F32.A Depression, unspecified; E11.9 Type 2 diabetes mellitus without complications; I10 Essential (primary) hypertension; M19.90 Unspecified osteoarthritis, unspecified site; Z79.84 Long term (current) use of oral hypoglycemic drugs; Z79.899 Other long term (current) drug therapy; Z88.0 Allergy status to penicillin; Z88.5 Allergy status to narcotic agent; Z88.6 Allergy status to analgesic agent; Z88.8 Allergy status to other drugs, medicaments and biological substances

== ENCOUNTER 2023-09-02 15:47 | Emergency (ER) | payer OTHER ==
[~2023-09-02] VITALS: Ht 167.6 cm; Wt 99.4 kg
[2023-09-02] MEDS: NITROGLYCERIN 0.4MG SUBL TABLET SL PRN (16:14)
[2023-09-02 16:28] LABS: BASO # 0.1 10^3/uL (0.0-0.2); EOS # 0.2 10^3/uL (0.0-0.5); EOS % 1.9 % (0.0-3.0); HEMATOCRIT 40.2 % (36.0-47.0); HEMOGLOBIN 13.1 g/dl (12.0-15.5); LYMPH # 2.3 10^3/uL (1.5-5.0); LYMPH % 28.2 % (24.0-44.0); MEAN CORPUSCULAR HEMOGLOBIN 27.8 pg (27.0-33.0); MEAN CORPUSCULAR HGB CONC 32.6 g/dl (32.0-36.5); MEAN CORPUSCULAR VOLUME 85.4 fl (80.0-96.0); MONO # 0.6 10^3/uL (0.0-0.8); NEUTROPHILS # 5.1 10^3/uL (1.5-8.5); NEUTROPHILS % 61.7 % (36.0-66.0); PLATELET COUNT, AUTOMATED 183 10^3/uL (150-450); RED BLOOD COUNT 4.71 10^6/uL (4.00-5.40); WHITE BLOOD COUNT 8.3 10^3/uL (4.0-10.0)
[2023-09-02 16:39] LABS: INR 0.89; PROTHROMBIN TIME 11.8 SECONDS (12.5-14.5)
[2023-09-02 16:52] VITALS: BP 115/65
[2023-09-02 16:55] LABS: LIPASE 35 U/L (12-53)
[2023-09-02 16:58] LABS: ALBUMIN 3.9 G/DL (3.2-5.2); ALKALINE PHOSPHATASE 97 U/L (46-116); ALT/SGPT 18 U/L (7.0-40); AST/SGOT 17 U/L (<34); BILIRUBIN,DIRECT 0.1 MG/DL (<0.4); BILIRUBIN,TOTAL 0.5 MG/DL (0.3-1.2); BLOOD UREA NITROGEN 12 MG/DL (9-23); CALCIUM LEVEL 9.3 MG/DL (8.3-10.6); CARBON DIOXIDE LEVEL 25 MMOL/L (20-31); CHLORIDE LEVEL 100 MMOL/L (98-107); CK-MB VALUE MASS < 1.0 NG/ML (<3.6); CREATININE FOR GFR 0.74 MG/DL (0.55-1.30); GLOMERULAR FILTRATION RATE > 60.0 (>45); GLUCOSE, FASTING 169 MG/DL (74-106); POTASSIUM SERUM 4.8 MMOL/L (3.5-5.1); SODIUM LEVEL 135 MMOL/L (136-145); TOTAL PROTEIN 7.1 G/DL (5.7-8.2)
[2023-09-02 17:01] LABS: THYROID STIMULATING HORMONE 1.512 uIU/ML (0.55-4.78)
[2023-09-02 17:04] LABS: CPK CREATINE PHOSPHOKINASE 36 U/L (34-145); MB/CK RELATIVE INDEX 2.77 (< OR =4)
[2023-09-02] MEDS: fentaNYL 100 MCG/2 ML INJECTION IV STA (17:21)
[2023-09-02 18:01] LABS: CK-MB VALUE MASS < 1.0 NG/ML (<3.6)
[2023-09-02 18:02] LABS: CPK CREATINE PHOSPHOKINASE 27 U/L (34-145)
[2023-09-02] MEDS ORDERED: ISOVUE-370 76% 100ML VIAL As Ordered ONE (18:05)
[2023-09-02] MEDS: KETOROLAC 30 MG/ML 1ML VIAL IV ONE (19:20)
[2023-09-02] MEDS ORDERED: NAPR-837 PO (20:37)
[2023-09-02 21:01] VITALS: BP 118/56; TEMP 96.8; O2SAT 95
== END 2023-09-02 21:20 | disposition home or self-care (01) ==
LOC: M ED 15:47 → EDBD 15:47 → M ED 21:20
DX: R07.9 Chest pain, unspecified (principal); I45.10 Unspecified right bundle-branch block; E11.9 Type 2 diabetes mellitus without complications; I10 Essential (primary) hypertension; F32.A Depression, unspecified; Z88.0 Allergy status to penicillin; Z88.5 Allergy status to narcotic agent; Z88.8 Allergy status to other drugs, medicaments and biological substances; Z79.1 Long term (current) use of non-steroidal anti-inflammatories (NSAID); Z79.4 Long term (current) use of insulin; Z79.84 Long term (current) use of oral hypoglycemic drugs; Z79.899 Other long term (current) drug therapy
CPT/HCPCS: 70450; 71045; 71275; 80048; 80076; 82550; 82553; 83690; 84443; 84484; 85025; 85610; 93005; 93041; 94760; 96374; 96375; 99285; J1885; J3010; Q9967

== ENCOUNTER → 2023-09-13 | Outpatient (CLI) | payer OTHER ==
[~2023-09-13] MED LIST changes: +NAPR-837 PO
== END ==
LOC: M PAIN 17:00
PROVIDERS: ATTEND Anesthesiology
DX: R10.9 Unspecified abdominal pain (principal); M79.2 Neuralgia and neuritis, unspecified; Z79.891 Long term (current) use of opiate analgesic; E11.9 Type 2 diabetes mellitus without complications; I10 Essential (primary) hypertension; Z79.02 Long term (current) use of antithrombotics/antiplatelets; Z79.811 Long term (current) use of aromatase inhibitors; Z79.84 Long term (current) use of oral hypoglycemic drugs; Z79.899 Other long term (current) drug therapy; Z88.0 Allergy status to penicillin; Z88.1 Allergy status to other antibiotic agents; Z88.5 Allergy status to narcotic agent; Z88.6 Allergy status to analgesic agent; Z88.8 Allergy status to other drugs, medicaments and biological substances; Z91.041 Radiographic dye allergy status

== ENCOUNTER → 2023-10-21 | Outpatient (CLI) | payer OTHER ==
[2023-10-21 10:59] LABS: BASO % 0.7 % (0.0-1.0); EOS # 0.1 10^3/uL (0.0-0.5); EOS % 1.8 % (0.0-3.0); HEMOGLOBIN 12.9 g/dl (12.0-15.5); LYMPH # 1.7 10^3/uL (1.5-5.0); LYMPH % 30.8 % (24.0-44.0); MEAN CORPUSCULAR HGB CONC 33.1 g/dl (32.0-36.5); MEAN CORPUSCULAR VOLUME 84.6 fl (80.0-96.0); MONO # 0.4 10^3/uL (0.0-0.8); MONO % 7.1 % (2.0-8.0); NEUTROPHILS # 3.3 10^3/uL (1.5-8.5); NEUTROPHILS % 59.4 % (36.0-66.0); PLATELET COUNT, AUTOMATED 176 10^3/uL (150-450); RED BLOOD COUNT 4.61 10^6/uL (4.00-5.40); WHITE BLOOD COUNT 5.5 10^3/uL (4.0-10.0)
[2023-10-21 11:26] LABS: ALBUMIN 3.9 G/DL (3.2-5.2); ALKALINE PHOSPHATASE 101 U/L (46-116); ALT/SGPT 13 U/L (7.0-40); AST/SGOT 13 U/L (<34); BILIRUBIN,TOTAL 0.5 MG/DL (0.3-1.2); BLOOD UREA NITROGEN 13 MG/DL (9-23); CALCIUM LEVEL 9.3 MG/DL (8.3-10.6); CARBON DIOXIDE LEVEL 26 MMOL/L (20-31); CHLORIDE LEVEL 105 MMOL/L (98-107); CHOLESTEROL LEVEL 124 MG/DL (<200); CHOLESTEROL RISK RATIO 3.33 (<5); CREATININE FOR GFR 0.62 MG/DL (0.55-1.30); GLOMERULAR FILTRATION RATE > 60.0 (>45); GLUCOSE, FASTING 245 MG/DL (74-106); HDL CHOLESTEROL 37.2 MG/DL (>40); LDL CHOLESTEROL 51.4 MG/DL (<100); NON-HDL-C 86.8 MG/DL; SODIUM LEVEL 137 MMOL/L (136-145); TOTAL PROTEIN 7.4 G/DL (5.7-8.2); TRIGLYCERIDES LEVEL 177 MG/DL (<150)
[2023-10-21 11:27] LABS: THYROID STIMULATING HORMONE 1.846 uIU/ML (0.55-4.78); THYROXINE (T4) 8.1 UG/DL (4.5-10.9); TOTAL 25(OH) VITAMIN D 48.1 NG/ML (20.0-100.0)
[2023-10-21 11:28] LABS: VITAMIN B12 LEVEL 322 PG/ML (211-911)
== END ==
LOC: M LAB 10:24
PROVIDERS: ATTEND Family Medicine
DX: Z00.00 Encounter for general adult medical examination without abnormal findings (principal); E78.00 Pure hypercholesterolemia, unspecified

== ENCOUNTER → 2023-10-26 | Outpatient (CLI) | payer OTHER | LOC: M PAIN 14:30 | PROVIDERS: ATTEND Nurse Practitioner Family | DX: R10.9 Unspecified abdominal pain (principal); Z79.891 Long term (current) use of opiate analgesic; M79.2 Neuralgia and neuritis, unspecified; G89.29 Other chronic pain; E66.9 Obesity, unspecified; F32.A Depression, unspecified; E11.9 Type 2 diabetes mellitus without complications; I10 Essential (primary) hypertension; M15.9 Polyosteoarthritis, unspecified; Z79.84 Long term (current) use of oral hypoglycemic drugs; Z79.899 Other long term (current) drug therapy; Z88.0 Allergy status to penicillin; Z88.6 Allergy status to analgesic agent; Z88.5 Allergy status to narcotic agent; Z88.8 Allergy status to other drugs, medicaments and biological substances; Z68.35 Body mass index [BMI] 35.0-35.9, adult ==

== ENCOUNTER → 2023-11-05 | Outpatient (CLI) | payer OTHER ==
[2023-11-05 16:19] LABS: BLOOD UREA NITROGEN 17 MG/DL (9-23); CREATININE FOR GFR 0.76 MG/DL (0.55-1.30); GLOMERULAR FILTRATION RATE > 60.0 (>45)
== END ==
LOC: M LAB 14:47
PROVIDERS: ATTEND Internal Medicine Gastroenterology
DX: R10.9 Unspecified abdominal pain (principal)

== ENCOUNTER 2023-11-12 14:14 | Emergency (ER) | payer OTHER ==
[~2023-11-12] VITALS: Ht 167.6 cm; Wt 100.3 kg
[~2023-11-12 14:14] MED LIST changes: -GASTROGRAFIN SOLUTION 30ML As Ordered ONE; -ISOVUE-370 76% 100ML VIAL As Ordered ONE; -KETO10TAB PO
[2023-11-12] MEDS: ACETAMINOPHEN 325 MG TAB PO ONE (17:53)
[2023-11-12 17:55] LABS: BASO % 0.5 % (0.0-1.0); EOS # 0.1 10^3/uL (0.0-0.5); EOS % 1.9 % (0.0-3.0); HEMATOCRIT 40.7 % (36.0-47.0); HEMOGLOBIN 13.2 g/dl (12.0-15.5); LYMPH # 2.2 10^3/uL (1.5-5.0); LYMPH % 29.7 % (24.0-44.0); MEAN CORPUSCULAR HGB CONC 32.4 g/dl (32.0-36.5); MEAN CORPUSCULAR VOLUME 86.2 fl (80.0-96.0); MONO # 0.6 10^3/uL (0.0-0.8); MONO % 7.8 % (2.0-8.0); NEUTROPHILS # 4.4 10^3/uL (1.5-8.5); NEUTROPHILS % 59.8 % (36.0-66.0); PLATELET COUNT, AUTOMATED 175 10^3/uL (150-450); RED BLOOD COUNT 4.72 10^6/uL (4.00-5.40); WHITE BLOOD COUNT 7.3 10^3/uL (4.0-10.0)
[2023-11-12 18:16] LABS: ALBUMIN 4.1 G/DL (3.2-5.2); ALKALINE PHOSPHATASE 112 U/L (46-116); ALT/SGPT 13 U/L (7.0-40); AST/SGOT 9 U/L (<34); BILIRUBIN,TOTAL 0.4 MG/DL (0.3-1.2); BLOOD UREA NITROGEN 13 MG/DL (9-23); CALCIUM LEVEL 9.4 MG/DL (8.3-10.6); CARBON DIOXIDE LEVEL 29 MMOL/L (20-31); CHLORIDE LEVEL 102 MMOL/L (98-107); CREATININE FOR GFR 0.66 MG/DL (0.55-1.30); GLOMERULAR FILTRATION RATE > 60.0 (>45); GLUCOSE, FASTING 160 MG/DL (74-106); POTASSIUM SERUM 4.2 MMOL/L (3.5-5.1); SODIUM LEVEL 136 MMOL/L (136-145); TOTAL PROTEIN 7.6 G/DL (5.7-8.2)
[2023-11-12] MEDS: KETOROLAC 30 MG/ML 1ML VIAL IM ONE (19:19)
[2023-11-12] MEDS ORDERED: KETO10TAB PO (20:40)
[2023-11-12 20:51] VITALS: BP 151/70; TEMP 96.3; O2SAT 97
== END 2023-11-12 20:56 | disposition home or self-care (01) ==
LOC: M ED 14:14
DX: R51.9 Headache, unspecified (principal); R10.9 Unspecified abdominal pain; I45.10 Unspecified right bundle-branch block; Z88.0 Allergy status to penicillin; Z88.1 Allergy status to other antibiotic agents; Z88.5 Allergy status to narcotic agent; Z88.8 Allergy status to other drugs, medicaments and biological substances; Z79.1 Long term (current) use of non-steroidal anti-inflammatories (NSAID); Z79.4 Long term (current) use of insulin; Z79.84 Long term (current) use of oral hypoglycemic drugs; Z79.899 Other long term (current) drug therapy
CPT/HCPCS: 70450; 74177; 80053; 81001; 85025; 87086; 87486; 87581; 87633; 87798; 93005; 96372; 99284; J1885; Q9963; Q9967

== ENCOUNTER → 2023-11-12 | Outpatient (CLI) | payer OTHER ==
[~2023-11-12] MED LIST changes: +GASTROGRAFIN SOLUTION 30ML As Ordered ONE; +ISOVUE-370 76% 100ML VIAL As Ordered ONE; +KETO10TAB PO
== END ==
LOC: M RAD 07:59
PROVIDERS: ATTEND Internal Medicine Gastroenterology
DX: R10.9 Unspecified abdominal pain (principal)

== ENCOUNTER → 2024-01-09 | Outpatient (CLI) | payer OTHER ==
[~2024-01-09] MED LIST changes: +KETO10TAB PO
== END ==
LOC: M LAB 16:25
PROVIDERS: ATTEND Neurological Surgery
DX: M54.2 Cervicalgia (principal)

== ENCOUNTER 2024-02-12 16:20 | Emergency (ER) | payer OTHER ==
[~2024-02-12] VITALS: Ht 167.6 cm; Wt 101.8 kg
[2024-02-12 16:55] LABS: BASO # 0.1 10^3/uL (0.0-0.2); BASO % 0.7 % (0.0-1.0); EOS # 0.2 10^3/uL (0.0-0.5); EOS % 1.6 % (0.0-3.0); HEMATOCRIT 40.8 % (36.0-47.0); HEMOGLOBIN 12.9 g/dl (12.0-15.5); LYMPH # 1.9 10^3/uL (1.5-5.0); LYMPH % 19.9 % (24.0-44.0); MEAN CORPUSCULAR HEMOGLOBIN 26.8 pg (27.0-33.0); MEAN CORPUSCULAR HGB CONC 31.6 g/dl (32.0-36.5); MEAN CORPUSCULAR VOLUME 84.6 fl (80.0-96.0); MONO # 0.6 10^3/uL (0.0-0.8); MONO % 6.4 % (2.0-8.0); NEUTROPHILS # 6.8 10^3/uL (1.5-8.5); NEUTROPHILS % 70.7 % (36.0-66.0); PLATELET COUNT, AUTOMATED 363 10^3/uL (150-450); RED BLOOD COUNT 4.82 10^6/uL (4.00-5.40); WHITE BLOOD COUNT 9.6 10^3/uL (4.0-10.0)
[2024-02-12 17:18] LABS: LIPASE 40 U/L (12-53)
[2024-02-12 17:19] LABS: CK-MB VALUE MASS < 1.0 NG/ML (<3.6)
[2024-02-12 17:21] LABS: ALBUMIN 3.4 G/DL (3.2-5.2); ALKALINE PHOSPHATASE 111 U/L (35-104); ALT/SGPT 9 U/L (7.0-40); AST/SGOT 10 U/L (<34); BILIRUBIN,DIRECT 0.2 MG/DL (<0.4); BILIRUBIN,TOTAL 0.4 MG/DL (0.3-1.2); BLOOD UREA NITROGEN 10 MG/DL (9-23); CALCIUM LEVEL 9.6 MG/DL (8.3-10.6); CARBON DIOXIDE LEVEL 28 MMOL/L (20-31); CHLORIDE LEVEL 100 MMOL/L (98-107); CPK CREATINE PHOSPHOKINASE 21 U/L (34-145); CREATININE FOR GFR 0.72 MG/DL (0.55-1.30); GLOMERULAR FILTRATION RATE > 60.0 (>45); GLUCOSE, FASTING 138 MG/DL (74-106); MB/CK RELATIVE INDEX 4.76 (< OR =4); POTASSIUM SERUM 4.6 MMOL/L (3.5-5.1); SODIUM LEVEL 137 MMOL/L (136-145); TOTAL PROTEIN 7.5 G/DL (5.7-8.2)
[2024-02-12 17:22] LABS: THYROID STIMULATING HORMONE 1.896 uIU/ML (0.55-4.78)
[2024-02-12 18:21] LABS: CK-MB VALUE MASS < 1.0 NG/ML (<3.6)
[2024-02-12 18:23] LABS: CPK CREATINE PHOSPHOKINASE 19 U/L (34-145); MB/CK RELATIVE INDEX 5.26 (< OR =4)
[2024-02-12] MEDS ORDERED: ISOVUE-370 76% 100ML VIAL As Ordered ONE (18:49)
[2024-02-12] MEDS: ACETAMINOPHEN 500 MG TAB PO ONE (19:40)
[2024-02-12 20:45] LABS: CK-MB VALUE MASS < 1.0 NG/ML (<3.6); CPK CREATINE PHOSPHOKINASE 57 U/L (34-145); MB/CK RELATIVE INDEX 1.75 (< OR =4)
[2024-02-12 21:15] VITALS: BP 124/60; TEMP 97.9; O2SAT 96
== END 2024-02-12 21:57 | disposition home or self-care (01) ==
LOC: M ED 16:20 → EDBD 16:20 → M ED 21:57
DX: R07.89 Other chest pain (principal); E11.9 Type 2 diabetes mellitus without complications; I10 Essential (primary) hypertension; I25.119 Atherosclerotic heart disease of native coronary artery with unspecified angina pectoris; Z88.0 Allergy status to penicillin; Z88.1 Allergy status to other antibiotic agents; Z88.5 Allergy status to narcotic agent; Z88.8 Allergy status to other drugs, medicaments and biological substances; Z79.1 Long term (current) use of non-steroidal anti-inflammatories (NSAID); Z79.4 Long term (current) use of insulin; Z79.84 Long term (current) use of oral hypoglycemic drugs; Z79.899 Other long term (current) drug therapy
CPT/HCPCS: 36415; 71045; 71275; 80048; 80076; 82550; 82553; 83690; 84443; 84484; 85025; 93005; 93041; 94760; 99285; Q9967

== ENCOUNTER → 2024-02-15 | Outpatient (REF) | payer OTHER | LOC: M LAB REF 15:55 | PROVIDERS: ATTEND Emergency Medicine | DX: R19.7 Diarrhea, unspecified (principal) ==

== ENCOUNTER 2024-05-28 08:40 | Day surgery (SDC) | payer OTHER ==
[~2024-05-28] VITALS: Ht 167.6 cm; Wt 92.6 kg
[2024-05-28] MEDS: CEFUROXIME 1MG/0.1ML INTRACAMERAL INJ As Ordered ONE (06:56)
[~2024-05-28 08:40] MED LIST changes: +ARIP10TA63 PO; +ATOR80TA59 PO; +DULA3PEN; -FURO40TA2; +FURO40TA2 PO; +GABA-1172 PO; +JARD1TAB PO; +MIDAZOLAM INJ 2MG/2ML VIAL As Ordered ONE; +PHENYLEPHRINE 10% OPHTH SOL 5ML OD PRN; +PREG75CA3 PO; +fentaNYL 100 MCG/2 ML INJECTION As Ordered ONE
[2024-05-28] MEDS: CYCLOPENTOLATE 1% OPHTH SOLN 2ML BTL OD SCH (09:24)
[2024-05-28] MEDS: OFLOXACIN 0.3 % (OCUFLOX) OPTH SOL 5ML OD ONE (09:24)
[2024-05-28] MEDS: TROPICAMIDE 1% OPHTH SOLN 15ML OD SCH (09:24)
[2024-05-28] MEDS: LIDOCAINE 3.5 % 1ML OPHTH TOPICAL GEL OU ONE (09:24)
[2024-05-28] MEDS: PHENYLEPHRINE 2.5% OPHTH SOL 2ML OD SCH (09:24)
[2024-05-28] MEDS: LIDOCAINE 1% SDV 5ML VIAL As Ordered ONE (09:54)
[2024-05-28] MEDS: BSS IRRIG/VANCO(10MG)/TOBRA(5MG)/EPINEPH(1:1000-0.5CC)500ML BAG-ORONLY As Ordered ONE (09:56)
[2024-05-28 10:10] VITALS: BP 172/85; TEMP 97.2; O2SAT 96
== END 2024-05-28 10:23 | disposition home or self-care (01) ==
LOC: M SDC 08:40
PROVIDERS: ATTEND Ophthalmology
DX: E11.36 Type 2 diabetes mellitus with diabetic cataract (principal); H25.11 Age-related nuclear cataract, right eye; H57.03 Miosis; I10 Essential (primary) hypertension; E78.00 Pure hypercholesterolemia, unspecified; G35 Multiple sclerosis; Z79.899 Other long term (current) drug therapy; Z79.85 Long-term (current) use of injectable non-insulin antidiabetic drugs; Z79.4 Long term (current) use of insulin; Z79.84 Long term (current) use of oral hypoglycemic drugs; Z88.8 Allergy status to other drugs, medicaments and biological substances; Z88.5 Allergy status to narcotic agent; Z88.0 Allergy status to penicillin; Z88.1 Allergy status to other antibiotic agents; Z88.6 Allergy status to analgesic agent; Z90.710 Acquired absence of both cervix and uterus; Z90.49 Acquired absence of other specified parts of digestive tract; Z90.89 Acquired absence of other organs
CPT/HCPCS: 66984; 92015; J0697; J2250; J3010; V2788

== ENCOUNTER 2024-06-04 09:30 | Day surgery (SDC) | payer OTHER ==
[~2024-06-04] VITALS: Ht 167.6 cm; Wt 93.8 kg
[~2024-06-04 09:30] MED LIST changes: -MIDAZOLAM INJ 2MG/2ML VIAL As Ordered ONE; -PHENYLEPHRINE 10% OPHTH SOL 5ML OD PRN; +PHENYLEPHRINE 10% OPHTH SOL 5ML OS PRN; -PREG50CA PO; +PREG50CA87 PO; -fentaNYL 100 MCG/2 ML INJECTION As Ordered ONE
[2024-06-04] MEDS: OFLOXACIN 0.3 % (OCUFLOX) OPTH SOL 5ML OS ONE (10:15)
[2024-06-04] MEDS: CYCLOPENTOLATE 1% OPHTH SOLN 2ML BTL OS SCH (10:40)
[2024-06-04] MEDS: LIDOCAINE 3.5 % 1ML OPHTH TOPICAL GEL OU ONE (10:40)
[2024-06-04] MEDS: PHENYLEPHRINE 2.5% OPHTH SOL 2ML OS SCH (10:40)
[2024-06-04] MEDS: TROPICAMIDE 1% OPHTH SOLN 15ML OS SCH (10:40)
[2024-06-04] MEDS ORDERED: fentaNYL 100 MCG/2 ML INJECTION As Ordered ONE (11:08)
[2024-06-04] MEDS ORDERED: MIDAZOLAM INJ 2MG/2ML VIAL As Ordered ONE (11:09)
[2024-06-04] MEDS: BSS IRRIG/VANCO(10MG)/TOBRA(5MG)/EPINEPH(1:1000-0.5CC)500ML BAG-ORONLY As Ordered ONE (11:14)
[2024-06-04] MEDS ORDERED: GLUCOSE 4 GM CHEW PO PRN (11:15)
[2024-06-04] MEDS ORDERED: GLUCAGON INJ 1MG VIAL SC PRN (11:15)
[2024-06-04] MEDS ORDERED: DEXTROSE 50% 50ML SYRINGE IV PRN (11:15)
[2024-06-04] MEDS: INSULIN LISPRO (NovoLOG) PER UNIT SC PRN (11:20)
[2024-06-04] MEDS: CEFUROXIME 1MG/0.1ML INTRACAMERAL INJ As Ordered ONE (11:38)
[2024-06-04] MEDS: LIDOCAINE 1% SDV 5ML VIAL As Ordered ONE (11:54)
[2024-06-04 12:17] VITALS: BP 177/81; TEMP 96.5; O2SAT 95
== END 2024-06-04 12:27 | disposition home or self-care (01) ==
LOC: M SDC 09:30
PROVIDERS: ATTEND Ophthalmology
DX: E11.36 Type 2 diabetes mellitus with diabetic cataract (principal); H25.12 Age-related nuclear cataract, left eye; I10 Essential (primary) hypertension; E78.00 Pure hypercholesterolemia, unspecified; Z79.4 Long term (current) use of insulin; Z79.84 Long term (current) use of oral hypoglycemic drugs; Z79.899 Other long term (current) drug therapy; Z79.85 Long-term (current) use of injectable non-insulin antidiabetic drugs; Z90.710 Acquired absence of both cervix and uterus; Z90.49 Acquired absence of other specified parts of digestive tract; Z90.89 Acquired absence of other organs; Z88.8 Allergy status to other drugs, medicaments and biological substances; Z88.6 Allergy status to analgesic agent; Z88.0 Allergy status to penicillin; Z88.5 Allergy status to narcotic agent; G35 Multiple sclerosis
CPT/HCPCS: 66984; 92015; J0697; J1815; J2250; J3010; V2788

== ENCOUNTER 2024-06-25 22:15 | Emergency (ER) | payer OTHER ==
[~2024-06-25] VITALS: Ht 167.6 cm; Wt 94.8 kg
[~2024-06-25 22:15] MED LIST changes: -PHENYLEPHRINE 10% OPHTH SOL 5ML OS PRN
[2024-06-25 22:17] VITALS: TEMP 98.7
[2024-06-25 22:58] LABS: BASO # 0.1 10^3/uL (0.0-0.2); BASO % 0.9 % (0.0-1.0); EOS # 0.2 10^3/uL (0.0-0.5); EOS % 2.8 % (0.0-3.0); HEMATOCRIT 40.4 % (36.0-47.0); HEMOGLOBIN 13.3 g/dl (12.0-15.5); LYMPH # 2.7 10^3/uL (1.5-5.0); LYMPH % 34.8 % (24.0-44.0); MEAN CORPUSCULAR HEMOGLOBIN 27.8 pg (27.0-33.0); MEAN CORPUSCULAR HGB CONC 32.9 g/dl (32.0-36.5); MEAN CORPUSCULAR VOLUME 84.3 fl (80.0-96.0); MONO # 0.7 10^3/uL (0.0-0.8); MONO % 8.5 % (2.0-8.0); NEUTROPHILS # 4.2 10^3/uL (1.5-8.5); NEUTROPHILS % 52.9 % (36.0-66.0); PLATELET COUNT, AUTOMATED 184 10^3/uL (150-450); RED BLOOD COUNT 4.79 10^6/uL (4.00-5.40); WHITE BLOOD COUNT 7.9 10^3/uL (4.0-10.0)
[2024-06-25] MEDS: NITROGLYCERIN 0.4MG SUBL TABLET SL PRN (23:11)
[2024-06-25 23:14] LABS: INR 0.88; PARTIAL THROMBOPLASTIN TIME 26.7 SECONDS (24.8-34.2); PROTHROMBIN TIME 12.2 SECONDS (12.5-14.5)
[2024-06-25 23:23] LABS: CK-MB VALUE MASS < 1.0 NG/ML (<3.6)
[2024-06-25 23:25] LABS: ALKALINE PHOSPHATASE 98 U/L (35-104); ALT/SGPT 16 U/L (7.0-40); AST/SGOT 17 U/L (<34); BILIRUBIN,DIRECT 0.1 MG/DL (<0.4); BILIRUBIN,TOTAL 0.4 MG/DL (0.3-1.2); BLOOD UREA NITROGEN 11 MG/DL (9-23); CALCIUM LEVEL 9.4 MG/DL (8.3-10.6); CARBON DIOXIDE LEVEL 29 MMOL/L (20-31); CHLORIDE LEVEL 99 MMOL/L (98-107); CREATININE FOR GFR 0.62 MG/DL (0.55-1.30); GLOMERULAR FILTRATION RATE > 90.0 (>45); GLUCOSE, FASTING 152 MG/DL (74-106); POTASSIUM SERUM 4.2 MMOL/L (3.5-5.1); SODIUM LEVEL 137 MMOL/L (136-145); TOTAL PROTEIN 7.5 G/DL (5.7-8.2)
[2024-06-25 23:27] LABS: CPK CREATINE PHOSPHOKINASE 33 U/L (34-145); FREE T4 1.36 NG/DL (0.89-1.76); MB/CK RELATIVE INDEX 3.03 (< OR =4); THYROID STIMULATING HORMONE 3.953 uIU/ML (0.55-4.78)
[2024-06-25 23:28] VITALS: BP 107/60
[2024-06-25] MEDS ORDERED: ISOVUE-370 76% 100ML VIAL As Ordered ONE (23:37)
[2024-06-25] MEDS: ACETAMINOPHEN *IV* 1,000 MG in IV 1 EA IV ONE (23:49)
[2024-06-26 00:34] LABS: CK-MB VALUE MASS < 1.0 NG/ML (<3.6)
[2024-06-26 00:41] LABS: CPK CREATINE PHOSPHOKINASE 34 U/L (34-145); MB/CK RELATIVE INDEX 2.94 (< OR =4)
[2024-06-26 02:15] VITALS: O2SAT 96
[2024-06-26] MEDS ORDERED: PEPC1TAB5 PO (02:27)
[2024-06-26 02:41] VITALS: BP 127/58
== END 2024-06-26 02:54 | disposition home or self-care (01) ==
LOC: M ED 22:15
DX: R07.89 Other chest pain (principal); K21.9 Gastro-esophageal reflux disease without esophagitis; Q40.1 Congenital hiatus hernia; E11.9 Type 2 diabetes mellitus without complications; I10 Essential (primary) hypertension; Z88.0 Allergy status to penicillin; Z88.5 Allergy status to narcotic agent; Z88.8 Allergy status to other drugs, medicaments and biological substances; Z79.1 Long term (current) use of non-steroidal anti-inflammatories (NSAID); Z79.4 Long term (current) use of insulin; Z79.84 Long term (current) use of oral hypoglycemic drugs; Z79.899 Other long term (current) drug therapy
CPT/HCPCS: 71045; 71275; 80048; 80076; 82550; 82553; 84439; 84443; 84484; 85025; 85610; 85730; 93005; 93041; 94760; 96365; 96366; 99285; J0131; Q9967

== ENCOUNTER 2024-09-11 10:38 | Emergency (ER) | payer OTHER ==
[~2024-09-11] VITALS: Ht 167.6 cm; Wt 94.1 kg
[~2024-09-11 10:38] MED LIST changes: +PEPC1TAB5 PO
[2024-09-11 12:01] LABS: BASO # 0.1 10^3/uL (0.0-0.2); BASO % 1.0 % (0.0-1.0); EOS # 0.3 10^3/uL (0.0-0.5); EOS % 3.7 % (0.0-3.0); LYMPH # 1.9 10^3/uL (1.5-5.0); LYMPH % 24.4 % (24.0-44.0); MONO # 0.5 10^3/uL (0.0-0.8); MONO % 6.8 % (2.0-8.0); NEUTROPHILS # 4.9 10^3/uL (1.5-8.5); NEUTROPHILS % 64.0 % (36.0-66.0); PLATELET COUNT, AUTOMATED 203 10^3/uL (150-450)
[2024-09-11 12:17] LABS: INR 0.99
[2024-09-11 12:26] LABS: ALT/SGPT 16 U/L (7.0-40); AST/SGOT 14 U/L (<34); CALCIUM LEVEL 9.5 MG/DL (8.3-10.6); CARBON DIOXIDE LEVEL 26 MMOL/L (20-31); CHLORIDE LEVEL 101 MMOL/L (98-107); CREATININE FOR GFR 0.66 MG/DL (0.55-1.30); GLOMERULAR FILTRATION RATE > 90.0 (>45); POTASSIUM SERUM 4.3 MMOL/L (3.5-5.1); SODIUM LEVEL 142 MMOL/L (136-145)
[2024-09-11] MEDS ORDERED: ISOVUE-370 76% 100 ML VIAL As Ordered ONE (13:16)
[2024-09-11] MEDS: ONDANSETRON 4MG 2ML VIAL IV ONE (14:09)
[2024-09-11 15:17] LABS: KETONE, URINE AUTO RFX NEGATIVE (NEGATIVE); LEUKOCYTE ESTERASE UR AUTO RFX NEGATIVE (NEGATIVE); NITRITE, URINE AUTO RFX NEGATIVE (NEGATIVE); RBC, URINE AUTO RFX 3 /HPF (0-3); SQUAM EPITHELIAL CELL UR AURFX 1 /HPF (0-6); WBC, URINE AUTO RFX 4 /HPF (0-3)
[2024-09-11] MEDS: NS 500 ML IV ONE (15:51)
[2024-09-11] MEDS: DICYCLOMINE 10 MG CAP PO ONE (15:51)
[2024-09-11 17:15] VITALS: BP 100/54
[2024-09-11 17:16] VITALS: TEMP 97.1; O2SAT 96
[2024-09-11] MEDS ORDERED: DICY-61 PO (17:23)
== END 2024-09-11 17:41 | disposition home or self-care (01) ==
LOC: M ED 10:38
DX: E86.0 Dehydration (principal); R10.9 Unspecified abdominal pain; E11.9 Type 2 diabetes mellitus without complications; I10 Essential (primary) hypertension; E78.5 Hyperlipidemia, unspecified; F32.A Depression, unspecified; Z88.0 Allergy status to penicillin; Z88.5 Allergy status to narcotic agent; Z88.6 Allergy status to analgesic agent; Z88.8 Allergy status to other drugs, medicaments and biological substances; Z79.1 Long term (current) use of non-steroidal anti-inflammatories (NSAID); Z79.4 Long term (current) use of insulin; Z79.84 Long term (current) use of oral hypoglycemic drugs; Z79.899 Other long term (current) drug therapy
CPT/HCPCS: 74177; 76705; 80048; 80076; 81001; 82150; 83605; 83690; 85025; 85610; 85730; 93005; 96374; 96375; 99284; J2405; J3010; Q9967

== ENCOUNTER 2024-10-22 17:26 | Emergency (ER) | payer OTHER ==
[~2024-10-22] VITALS: Ht 167.6 cm; Wt 90.9 kg
[~2024-10-22 17:26] MED LIST changes: +DICY-61 PO
[2024-10-22] MEDS: NITROGLYCERIN 0.4 MG SUBL TABLET SL PRN (18:06)
[2024-10-22 18:14] LABS: BASO # 0.0 10^3/uL (0.0-0.2); BASO % 0.5 % (0.0-1.0); EOS # 0.2 10^3/uL (0.0-0.5); EOS % 3.2 % (0.0-3.0); LYMPH # 2.5 10^3/uL (1.5-5.0); LYMPH % 33.2 % (24.0-44.0); MONO # 0.5 10^3/uL (0.0-0.8); MONO % 7.0 % (2.0-8.0); NEUTROPHILS # 4.1 10^3/uL (1.5-8.5); NEUTROPHILS % 56.0 % (36.0-66.0); PLATELET COUNT, AUTOMATED 181 10^3/uL (150-450)
[2024-10-22 18:38] VITALS: BP 116/58
[2024-10-22 18:40] LABS: CK-MB VALUE MASS < 1.0 NG/ML (<3.6)
[2024-10-22 18:43] LABS: ALT/SGPT 15 U/L (7.0-40); AST/SGOT 18 U/L (<34); CALCIUM LEVEL 9.2 MG/DL (8.3-10.6); CARBON DIOXIDE LEVEL 28 MMOL/L (20-31); CHLORIDE LEVEL 100 MMOL/L (98-107); CREATININE FOR GFR 0.63 MG/DL (0.55-1.30); GLOMERULAR FILTRATION RATE > 90.0 (>45); POTASSIUM SERUM 3.8 MMOL/L (3.5-5.1); SODIUM LEVEL 140 MMOL/L (136-145)
[2024-10-22 18:46] LABS: CPK CREATINE PHOSPHOKINASE 22 U/L (34-145)
[2024-10-22] MEDS ORDERED: ISOVUE-370 76% 100 ML VIAL As Ordered ONE (19:29)
[2024-10-22 19:43] LABS: CK-MB VALUE MASS < 1.0 NG/ML (<3.6)
[2024-10-22 19:45] LABS: CPK CREATINE PHOSPHOKINASE 23 U/L (34-145)
[2024-10-22 22:02] VITALS: BP 112/56; TEMP 96.9; O2SAT 95
== END 2024-10-22 22:02 | disposition home or self-care (01) ==
LOC: M ED 17:26
DX: R07.9 Chest pain, unspecified (principal); E11.9 Type 2 diabetes mellitus without complications; I10 Essential (primary) hypertension; F32.A Depression, unspecified; E66.9 Obesity, unspecified; G89.4 Chronic pain syndrome; Z90.89 Acquired absence of other organs; Z88.0 Allergy status to penicillin; Z88.5 Allergy status to narcotic agent; Z88.8 Allergy status to other drugs, medicaments and biological substances; Z88.6 Allergy status to analgesic agent; Z79.1 Long term (current) use of non-steroidal anti-inflammatories (NSAID); Z79.899 Other long term (current) drug therapy; Z79.02 Long term (current) use of antithrombotics/antiplatelets; Z79.4 Long term (current) use of insulin
CPT/HCPCS: 71045; 71275; 80048; 80076; 82550; 82553; 84484; 85025; 93005; 93041; 94760; 99285; Q9967

== ENCOUNTER → 2024-12-26 | Outpatient (CLI) | payer OTHER ==
[2024-12-26 11:11] LABS: BASO # 0.1 10^3/uL (0.0-0.2); BASO % 1.0 % (0.0-1.0); EOS # 0.1 10^3/uL (0.0-0.5); EOS % 1.9 % (0.0-3.0); LYMPH # 1.3 10^3/uL (1.5-5.0); LYMPH % 20.9 % (24.0-44.0); MONO # 0.5 10^3/uL (0.0-0.8); MONO % 7.7 % (2.0-8.0); NEUTROPHILS # 4.3 10^3/uL (1.5-8.5); NEUTROPHILS % 68.2 % (36.0-66.0); PLATELET COUNT, AUTOMATED 171 10^3/uL (150-450)
[2024-12-26 11:27] LABS: APPEARANCE, URINE HAZY (CLEAR); BACTERIA, URINE AUTO NEGATIVE (NEGATIVE); BILIRUBIN, URINE AUTO NEGATIVE (NEGATIVE); BLOOD, URINE BLOOD NEGATIVE (NEGATIVE); GLUCOSE, URINE (UA) AUTO 3+ mg/dL (NEGATIVE); KETONE, URINE AUTO NEGATIVE (NEGATIVE); LEUKOCYTE ESTERASE, URINE AUTO NEGATIVE (NEGATIVE); MUCUS, URINE SMALL (NEGATIVE); NITRITE, URINE AUTO NEGATIVE (NEGATIVE); PROTEIN, URINE AUTO NEGATIVE (NEGATIVE); RBC, URINE AUTO 0 /HPF (0-3); SPECIFIC GRAVITY URINE AUTO 1.026 (1.002-1.035); SQUAMOUS EPITHELIAL CELL UR AU 1 /HPF (0-6); UROBILINOGEN, URINE AUTO 0.2 mg/dL (0.0-2.0); WBC, URINE AUTO 2 /HPF (0-3); YEAST LIKE CELL URINE AUTO SMALL
[2024-12-26 11:33] LABS: ESTIMATED AVERAGE GLUCOSE 163.0 MG/DL (60-110)
[2024-12-26 11:46] LABS: ALT/SGPT 14 U/L (7.0-40); AST/SGOT 13 U/L (<34); CALCIUM LEVEL 8.6 MG/DL (8.3-10.6); CARBON DIOXIDE LEVEL 24 MMOL/L (20-31); CHLORIDE LEVEL 103 MMOL/L (98-107); CHOLESTEROL LEVEL 135 MG/DL (<200); CHOLESTEROL RISK RATIO 2.71 (<5); CREATININE FOR GFR 0.58 MG/DL (0.55-1.30); GLOMERULAR FILTRATION RATE > 90.0 (>45); LDL CHOLESTEROL 61.8 MG/DL (<100); NON-HDL-C 85.2 MG/DL; POTASSIUM SERUM 4.2 MMOL/L (3.5-5.1); SODIUM LEVEL 138 MMOL/L (136-145); TRIGLYCERIDES LEVEL 117 MG/DL (<150)
[2024-12-26 11:49] LABS: THYROXINE (T4) 7.2 UG/DL (4.5-10.9)
[2024-12-26 11:50] LABS: TOTAL 25(OH) VITAMIN D 36.8 NG/ML (20.0-100.0); VITAMIN B12 LEVEL 300 PG/ML (211-911)
[2024-12-26 12:36] LABS: CREATININE, URINE 75.2 MG/DL; MALB URINE SIEMENS < 3.0 MG/L
== END ==
LOC: M LAB 10:09
PROVIDERS: ATTEND Family Medicine
DX: E11.65 Type 2 diabetes mellitus with hyperglycemia (principal); E78.5 Hyperlipidemia, unspecified; E55.9 Vitamin D deficiency, unspecified; D51.9 Vitamin B12 deficiency anemia, unspecified; R25.1 Tremor, unspecified